=== PATIENT | female | born 1980 | race Caucasian/White ===

== ENCOUNTER → 2016-09-26 | Outpatient (CLI) | payer MEDICAID, OTHER ==
[~2016-09-26] MED LIST: POTASSIUM; PREN1TAB39; [UNRECOGNIZED DRUG - OTHER]; [UNRECOGNIZED DRUG - REMARK]
--- NOTE | 2016-09-28 19:04 | Diagnostic Imaging Report ---
Bilateral screening mammogram. The current study was also evaluated with a Computer Aided Detection (CAD) system. INDICATION: Screening. No current complaints stated on the questionnaire. COMPARISON: None. This is a baseline exam. FINDINGS: The breasts are composed of heterogeneously dense parenchyma which may decrease mammographic sensitivity. There is no mass, architectural distortion or suspicious cluster of calcification. Minimally prominent symmetric axillary lymph nodes are seen. IMPRESSION: Heterogeneously dense parenchyma which may decrease mammographic sensitivity. No focal suspicious mass or calcification identified. ACR BI-RADS Category 2: Benign findings. Result letter will be mailed to the patient. Note: At least 10% of breast cancer is not imaged by mammography. Dictated by: Dictated on workstation # [id number]
== END ==
LOC: RAD 09:31
PROVIDERS: ATTEND Nurse Practitioner Family
DX: Z12.31 Encounter for screening mammogram for malignant neoplasm of breast (principal); Z80.3 Family history of malignant neoplasm of breast
CPT/HCPCS: 77067

== ENCOUNTER → 2016-10-02 | Outpatient (CLI) | payer MEDICAID, OTHER ==
--- NOTE | 2016-10-02 15:49 | Diagnostic Imaging Report ---
INDICATION: Dysfunctional uterine bleeding. COMPARISON: None. DISCUSSION: Transabdominal and transvaginal sonographic evaluation of the pelvis was performed. The uterus is normal in echotexture and size measuring 9.3 x 6.1 x 4.7 cm. Normal endometrial thickness measuring 0.5 cm. The ovaries appear normal in echotexture and size bilaterally with normal color Doppler blood flow. The right ovary measures 3.8 x 3.1 x 3.4 cm. The left ovary measures 2.8 x 1.9 x 2.6 cm. Normal follicular activity is present within the ovaries. No abnormal adnexal mass or fluid. IMPRESSION: 1. Unremarkable pelvic ultrasound. Dictated by: Dictated on workstation # [id number]
== END ==
LOC: RAD 14:19
PROVIDERS: ATTEND Nurse Practitioner Family
DX: N92.0 Excessive and frequent menstruation with regular cycle (principal)
CPT/HCPCS: 76830; 76856

== ENCOUNTER 2017-01-30 07:11 | Emergency (ER) | payer MEDICAID, OTHER ==
[~2017-01-30] VITALS: Ht 154.9 cm; Wt 82.6 kg
[2017-01-30] MEDS ORDERED: PRD10T PO (08:03)
[2017-01-30] MEDS ORDERED: CLIN300C11 PO (08:03)
--- NOTE | 2017-01-30 08:03 | ED Integumentary General ---
General Chief Complaint: Skin/Wound Problems Stated Complaint: SPIDER BITE Nursing Triage Note: PT STATES HAS POSSIBLE SPIDER BITE TO L OUTER THIGH, DID NOT SEE SPIDER OR FEEL SPIDER BITE, AREA REDDEND, STATES HAS BURNING SENSATION Source: patient History of Present Illness Time seen by provider: 07:50 Initial Comments C/O SORE, RED SPOT TO LEFT LATERAL THIGH FOR 2 DAYS DID NOT SEE OR FEEL ANYTHING BITE HER NO DRAINAGE OR STREAKS NO FEVER HAS HISTORY OF MRSA PCP: BEATRICE, ROBB CELESTE Allergies and Home Medications Allergies Coded Allergies: sulfamethoxazole (Verified Allergy, Mild, 01/30/17) trimethoprim (Verified Allergy, Mild, 01/30/17) Uncoded Allergies: PENICILLIN (Adverse Reaction, Unknown, 01/30/17) Home Medications Clindamycin HCl 300 Mg Capsule, 300 MG PO QID, #40 Prescribed by: KAEL MUÑOZ on 01/30/17 0803 Prednisone 10 Mg Tab, 40 MG PO DAILY, #12 Prescribed by: KAEL MUÑOZ on 01/30/17 0803 Constitutional: no symptoms reported : No LMP: Jan 29, 2017 (S/P BTL) Musculoskeletal: see HPI Skin: see HPI Psychiatric/Neurological: No Symptoms Reported Past Sesotnp-Hfxipo-Mdldlg Hx Patient Social History Recent Foreign Travel: No Contact w/Someone Who Travel: No Recent Infectious Disease Expo: No Immunizations Up To Date Tetanus Booster (TDap): Less than 5yrs Surgeries HX Surgeries: Yes Surgeries: Tonsillectomy, Tubal Ligation Respiratory Hx Respiratory Disorders: No Cardiovascular Hx Cardiac Disorders: No Neurological Hx Neurological Disorders: No Reproductive System : No Hx Reproductive Disorders: No 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 Genitourinary Hx Genitourinary Disorders: No Gastrointestinal Hx Gastrointestinal Disorders: No Musculoskeletal Hx Musculoskeletal Disorders: No Endocrine Hx Endocrine Disorders: No HEENT HX ENT Disorders: Yes Cancer Hx Cancer: No Psychosocial Hx Psychiatric Problems: No Integumentary HX Skin/Integumentary Disorder: Yes (MRSA) Blood Transfusions Hx Blood Disorders: No Physical Exam Vital Signs Vital Sign - Last 12Hours 01/30/17 07:30 Temp 98.2 Pulse 58 Resp 18 B/P (MAP) 141/86 Capillary Refill : Less Than 3 Seconds General Appearance: WD/WN, no apparent distress Extremities: other (LEFT LATERAL THIGH WITH 1 1/2 CM AREA OF ERYTHEMA AND INDURATION WITH CENTRAL TINY PUSTULE. SURROUNDING INDURATION WITHOUT ERYTHEMA OF 5 CM DIAMETER. NO AREAS OF FLUCTUANCE. NO DRAINAGE. NO STREAKS) Skin: normal color, warm/dry, other ( ABOVE) Progress/Results/Core Measures Results/Orders Vital Signs/I&O Vital Sign - Last 12Hours 01/30/17 07:30 Temp 98.2 Pulse 58 Resp 18 B/P (MAP) 141/86 Blood Pressure Mean: 104 Departure Impression Impression: Primary Impression: CELLULITIS LEFT LATERAL THIGH Additional Impression: Hx MRSA infection Disposition: HOME, SELF-CARE Condition: Stable Departure-Patient Inst. Referrals: DECLAN YOUNG DO (PCP) Primary Care Physician ALLISON CELESTE (Family) Primary Care Physician Patient Instructions: Cellulitis (Skin Infection), Adult (DC), Methicillin- Resistant Staphylococcus aureus (MRSA) Add. Discharge Instructions: ALTERNATE ICE AND HEAT TO AREA AT 20 MINUTE INTERVALS DO NOT POKE, PICK AT, OR SQUEEZE THE AREA FOLLOW UP WITH [facility] IN 2-3 DAYS IF NO BETTER All discharge instructions reviewed with patient and/or family. Voiced understanding. Scripts Prednisone (Prednisone) 10 Mg Tab 40 MG PO DAILY, #12 TAB Prov: KAEL MUÑOZ DO 01/30/17 Clindamycin HCl (Clindamycin HCl) 300 Mg Capsule 300 MG PO QID for FOR INFECTION, #40 CAP Prov: KAEL MUÑOZ DO 01/30/17 KAEL MUÑOZ DO Jan 30, 2017 08:03
[2017-01-30 08:06] VITALS: BP 141/86
--- OUTSIDE RECORDS SUMMARY | 2017-02-06 21:35 | XMS REPORT ---
Author Author ALLISON CELESTE [facility] eClinicalWorks Address Unknown Phone Unavailable Care Team Providers Care Kiln Fireman Name Role Phone ALLISON CELESTE CP Unavailable Allergies, Adverse Reactions, Alerts Substance Reaction Event Type Clonazepam made hyper and anxious Drug Allergy Bactrim hives Drug Allergy Problems Problem Type Condition Code Onset Dates Condition Status Problem Periapical abscess without sinus 522.5 Active Problem Acute bronchitis 466.0 Active Problem Unspecified hypertrophic and atrophic condition of skin 701.9 Active Problem Migraine, unspecified without mention of intractable migraine without mention of status migrainosus 346.90 Active Problem Acute upper respiratory infections of unspecified site 465.9 Active Problem Cellulitis and abscess of leg, except foot 682.6 Active Problem Pneumonia, organism unspecified 486 Active Problem Abnormal weight gain 783.1 Active Problem Major depressive disorder, recurrent episode, moderate 296.32 Active Problem Other, multiple, and unspecified sites, insect bite, nonvenomous, without mention of infection 919.4 Active Assessment Acute laryngitis J04.0 Active Problem Depressive disorder, not elsewhere classified 311 Active Problem Major depressive disorder, recurrent episode, mild 296.31 Active Problem Contact dermatitis and other eczema, due to unspecified cause 692.9 Active Medications Medication Code System Code Instructions Start Date End Date Status Dosage Clobetasol Propionate [facility] [address]-02 0.05 % Externally Twice a day December 31, 2014 1 application to affected area Ibuprofen [facility] [address]-02 800 MG Orally Three times a day November 23, 2014 1 tablet Imitrex [facility] [address]-60 100 MG Orally Once a day 1 tablet 1 time per day and repeat once more after 2 hours if headache recurs PRN Benzonatate [facility] [address]-55 100 MG Orally Three times a day Jul 27, 2015 1 capsule as needed Procedures Procedure Coding System Code Date STREP A ASSAY W/OPTIC CPT-4 62787 Jul 27, 2015 Office Visit, Est Pt., Level 3 CPT-4 72192 Jul 27, 2015 Vital Signs Date/Time: Jul 27, 2015 Temperature 97.9 F Weight 177.4 lbs Height 61.5 in BMI 32.97 Index Blood Pressure Diastolic 80 mmHg Blood Pressure Systolic 126 mmHg Cardiac Monitoring Heart Rate 77 bpm Results Name Result Date Reference Range Unit Abnormality Flag STREP A (IN HOUSE) ----STREP A NEG [id number] ----Control + [id number] ----Lot # [id number] ----Exp date [id number] Summary Purpose eClinicalWorks Submission
--- OUTSIDE RECORDS SUMMARY | 2017-02-06 21:36 | XMS REPORT ---
Author Author ALLISON CELESTE [facility] Address [address] [place] [address] Care Team Providers Care Escort Service Attendant Name Role Phone CELESTEALLISON Unavailable PROBLEMS Type Condition ICD9-CM Code [id number] Code Onset Dates Condition Status SNOMED Code Problem Unspecified hypertrophic and atrophic condition of skin 701.9 Active 318982754 Problem Abnormal weight gain 783.1 Active 611313424 Problem Acute bronchitis 466.0 Active 75191810 Problem Cellulitis and abscess of leg, except foot 682.6 Active 276093492 Problem Migraine, unspecified without mention of intractable migraine without mention of status migrainosus 346.90 Active 52526816 Problem Other, multiple, and unspecified sites, insect bite, nonvenomous, without mention of infection 919.4 Active 105068411 Problem Pneumonia, organism unspecified 486 Active 617223662 Problem Acute upper respiratory infections of unspecified site 465.9 Active 85893417 Problem Major depressive disorder, recurrent episode, moderate 296.32 Active 01054525 Problem Depressive disorder, not elsewhere classified 311 Active 30989225 Problem Major depressive disorder, recurrent episode, mild 296.31 Active 84863780 Problem Contact dermatitis and other eczema, due to unspecified cause 692.9 Active 07655323 Assessment Abscess L02.91 Feb, Active 681157997 Problem Periapical abscess without sinus 522.5 Active 527286104 ALLERGIES Substance Reaction Event Type Date Status Clonazepam made hyper and anxious Drug Allergy Feb, Active Bactrim hives Drug Allergy Feb, Active SOCIAL HISTORY No smoking Hx information available PLAN OF CARE VITAL SIGNS Height 61.5 in 2016-03-06 Weight 182 lbs 2016-03-06 Heart Rate 77 bpm 2016-03-06 Respiratory Rate 16 2016-03-06 BMI 33.83 kg/m2 2016-03-06 Blood pressure systolic 120 mmHg 2016-03-06 Blood pressure diastolic 76 mmHg 2016-03-06 MEDICATIONS Medication Instructions Dosage Frequency Start Date End Date Duration Status Imitrex 100 MG Orally Once a day 1 tablet 1 time per day and repeat once more after 2 hours if headache recurs PRN 24h Active Clindamycin HCl 300 MG Orally every 8 hrs 1 capsule 8h Feb,Feb 07 days Active RESULTS Name Result Date Reference Range CULTURE, AEROBIC 2016-03-06 Aerobic Bacterial Culture Final report Result 1 Staphylococcus aureus Antimicrobial Susceptibility PROCEDURES Procedure Date Ordered Related Diagnosis Body Site Office Visit, Est Pt., Level 3 Mar 06, 2016 CULTURE, BACTERIA, OTHER Mar 06, 2016 IMMUNIZATIONS No Known Immunizations
--- OUTSIDE RECORDS SUMMARY | 2017-02-06 21:36 | XMS REPORT ---
Author Author ALLISON CELESTE Organization [employer] Address Unknown Phone Unavailable Care Team Providers Care Gasoline Engine Assembler Name Role Phone ALLISON CELESTE CP Unavailable Allergies No Known Allergies Problems Problem Type Condition Code Onset Dates [...] without mention of infection 919.4 Active Assessment Encounter for immunization Z23 Active Problem Depressive disorder, not elsewhere classified 311 Active Problem Major depressive disorder, recurrent episode, mild 296.31 Active Problem Contact dermatitis and other eczema, due to unspecified cause 692.9 Active Medications No Known Medications Procedures Procedure Coding System Code Date SINGLE IMMUNIZATION ADMIN CPT-4 95877 February 06, 2016 HEP B (PED/ADOL, 3 DOSE) CPT-4 86919 February 06, 2016 Results No Known Results Immunizations Vaccine Administration Date HEP B (PED/ADOL, 3 DOSE) February 06, 2016 Summary Purpose eClinicalWorks Submission
--- OUTSIDE RECORDS SUMMARY | 2017-02-06 21:36 | XMS REPORT ---
Author Author ALLISON CELESTE Organization [employer] Address Unknown Phone Unavailable Care Team Providers Care Furniture Dipper Name Role Phone ALLISON CELESTE CP Unavailable Allergies, Adverse Reactions, Alerts Substance Reaction Event Type Clonazepam made hyper and anxious Drug Allergy Bactrim hives Drug Allergy Problems Problem Type Condition Code Onset Dates Condition Status Problem Unspecified hypertrophic and atrophic condition of skin 701.9 Active Problem Abnormal weight gain 783.1 Active Problem Acute bronchitis 466.0 Active Problem Cellulitis and abscess of leg, except foot 682.6 Active Problem Migraine, unspecified without mention of intractable migraine without mention of status migrainosus 346.90 Active Problem Abscess L02.91 Active Problem Other, multiple, and unspecified sites, insect bite, nonvenomous, without mention of infection 919.4 Active Problem Pneumonia, organism unspecified 486 Active Problem Acute upper respiratory infections of unspecified site 465.9 Active Problem Major depressive disorder, recurrent episode, moderate 296.32 Active Problem Depressive disorder, not elsewhere classified 311 Active Problem Major depressive disorder, recurrent episode, mild 296.31 Active Problem Contact dermatitis and other eczema, due to unspecified cause 692.9 Active Assessment Abscess L02.91 Active Problem Periapical abscess without sinus 522.5 Active Medications Medication Code System Code Instructions Start Date End Date Status Dosage Imitrex [facility] [address]-25 100 MG Orally Once a day 1 tablet 1 time per day and repeat once more after 2 hours if headache recurs PRN Clindamycin HCl [facility] [address]-54 300 MG Orally 2 times a day May 14, 2016 May 21, 2016 1 capsule Procedures Procedure Coding System Code Date Office Visit, Est Pt., Level 3 CPT-4 85827 May 14, 2016 Vital Signs Date/Time: May 14, 2016 Cardiac Monitoring Heart Rate 95 bpm Weight 183.2 lbs Height 61.5 in BMI 34.05 Index Blood Pressure Diastolic 70 mmHg Blood Pressure Systolic 118 mmHg Results No Known Results Summary Purpose eClinicalWorks Submission
--- OUTSIDE RECORDS SUMMARY | 2017-02-06 21:36 | XMS REPORT ---
Author Author ALLISON CELESTE Organization [employer] Address Unknown Phone Unavailable Care Team Providers Care Rn Travel Name Role Phone ALLISON CELESTE CP Unavailable Allergies No Known Allergies Problems Problem Type Condition ICD-9 Code Onset Dates Condition Status Problem Periapical [...] without mention of infection 919.4 Active Problem Depressive disorder, not elsewhere classified 311 Active Problem Major depressive disorder, recurrent episode, mild 296.31 Active Problem Contact dermatitis and other eczema, due to unspecified cause 692.9 Active Medications Medication Code System Code Instructions Start Date End Date Status Dosage Imitrex [facility] [address]-21 100 MG Orally Once a day 1 tablet 1 time per day and repeat once more after 2 hours if headache recurs PRN Results No Known Results Summary Purpose eClinicalWorks Submission
--- OUTSIDE RECORDS SUMMARY | 2017-02-06 21:36 | XMS REPORT ---
Author Author ALLISON CELESTE Organization [employer] Address Unknown Phone Unavailable Care Team Providers Care Incinerator Plant General Supervisor Name Role Phone ALLISON CELESTE CP Unavailable [...] without mention of infection 919.4 Active Assessment Abscess L02.91 Active Problem Depressive disorder, not elsewhere classified 311 Active Problem Major depressive disorder, recurrent episode, mild 296.31 Active Problem Contact dermatitis and other eczema, due to unspecified cause 692.9 Active Medications No Known Medications Procedures Procedure Coding System Code Date THER/PROPH/DIAG INJ, SC/IM CPT-4 31954 Mar 08, 2016 ROCEPHIN 1 GM (IM) CPT-4 J0696 Mar 08, 2016 Results No Known Results Summary Purpose eClinicalWorks Submission
--- OUTSIDE RECORDS SUMMARY | 2017-02-06 21:36 | XMS REPORT ---
Author Author DINORAH MERAZ [facility] Address [address] [place] [address] Care Team Providers Care Military Analyst Name Role Phone CELENA PIMENTELDINORAH VIGIL Unavailable PROBLEMS Type Condition ICD9-CM Code [id number] Code Onset Dates Condition Status SNOMED Code Problem Acute bronchitis 466.0 Active 51384445 Problem Pneumonia, organism unspecified 486 Active 587396664 Problem Abnormal weight gain 783.1 Active 246498602 Problem Abscess L02.91 Active 751507416 Problem Cellulitis and abscess of leg, except foot 682.6 Active 814435489 Problem Major depressive disorder, recurrent episode, moderate 296.32 Active 67117857 Problem Other, multiple, and unspecified sites, insect bite, nonvenomous, without mention of infection 919.4 Active 369343034 Problem Migraine, unspecified without mention of intractable migraine without mention of status migrainosus 346.90 Active 47164190 Problem Acute upper respiratory infections of unspecified site 465.9 Active 06342289 Problem Major depressive disorder, recurrent episode, mild 296.31 Active 64883385 Problem Contact dermatitis and other eczema, due to unspecified cause 692.9 Active 90717612 Assessment Laryngitis J04.0 Jun, Active 96353835 Problem Periapical abscess without sinus 522.5 Active 744722059 Problem Depressive disorder, not elsewhere classified 311 Active 69119035 Problem Unspecified hypertrophic and atrophic condition of skin 701.9 Active 021260529 ALLERGIES Substance Reaction Event Type Date Status Clonazepam made hyper and anxious Drug Allergy Jun, Active Bactrim hives Drug Allergy Jun, Active SOCIAL HISTORY No smoking Hx information available PLAN OF CARE VITAL SIGNS Height 61.5 in 2016-06-25 Weight 182.8 lbs 2016-06-25 Heart Rate 75 bpm 2016-06-25 Respiratory Rate 18 2016-06-25 BMI 33.98 kg/m2 2016-06-25 Blood pressure systolic 122 mmHg 2016-06-25 Blood pressure diastolic 68 mmHg 2016-06-25 MEDICATIONS Medication Instructions Dosage Frequency Start Date End Date Duration Status Imitrex 100 MG Orally Once a day 1 tablet 1 time per day and repeat once more after 2 hours if headache recurs PRN 24h Active PredniSONE 20 mg Orally twice a day 1 tablet 12h Jun, Jun, 05 days Active RESULTS No Results PROCEDURES Procedure Date Ordered Related Diagnosis Body Site Office Visit, Est Pt., Level 3 Jun 25, 2016 IMMUNIZATIONS No Known Immunizations
--- OUTSIDE RECORDS SUMMARY | 2017-02-06 21:36 | XMS REPORT ---
Author Author ALLISON CELESTE [facility] Address [address] [place] [address] Care Team Providers Care Culturist Name Role Phone ALLISON CELESTE Unavailable PROBLEMS Type Condition ICD9-CM Code [id number] Code Onset Dates Condition Status SNOMED Code Problem Unspecified hypertrophic and atrophic condition of skin 701.9 Active 649292800 Problem Abnormal weight gain 783.1 Active 898792676 Problem Acute bronchitis 466.0 Active 95204653 Problem Depressive disorder, not elsewhere classified 311 Active 82798600 Problem Major depressive disorder, recurrent episode, mild 296.31 Active 35709051 Problem Contact dermatitis and other eczema, due to unspecified cause 692.9 Active 86374916 Problem Periapical abscess without sinus 522.5 Active 866114807 Problem Cellulitis and abscess of leg, except foot 682.6 Active 478594462 Problem Migraine, unspecified without mention of intractable migraine without mention of status migrainosus 346.90 Active 65213119 Problem Other, multiple, and unspecified sites, insect bite, nonvenomous, without mention of infection 919.4 Active 789232001 Problem Pneumonia, organism unspecified 486 Active 878223380 Problem Acute upper respiratory infections of unspecified site 465.9 Active 20868688 Problem Major depressive disorder, recurrent episode, moderate 296.32 Active 04257152 ALLERGIES No Known Allergies SOCIAL HISTORY No smoking Hx information available PLAN OF CARE VITAL SIGNS MEDICATIONS Medication Instructions Dosage Frequency Start Date End Date Duration Status Clindamycin HCl 300 MG Orally every 8 hrs 1 capsule 8h Feb,Mar 07 days Active Amoxicillin 500 MG Orally 2 times a day 1 capsule 12h Feb, 14 Mar 07 days Active RESULTS No Results PROCEDURES No Known procedures IMMUNIZATIONS No Known Immunizations
--- OUTSIDE RECORDS SUMMARY | 2017-02-06 21:36 | XMS REPORT ---
Author Author ALLISON CELESTE Organization [employer] Address Unknown Phone Unavailable Care Team Providers Care Senior Hardware Engineer Name Role Phone ALLISON CELESTE CP Unavailable [...] Instructions Start Date End Date Status Dosage Amoxicillin [facility] [address]-55 500 MG Orally 2 times a day Mar 09, 2016 Mar 23, 2016 1 capsule Results No Known Results Summary Purpose eClinicalWorks Submission
--- OUTSIDE RECORDS SUMMARY | 2017-02-06 21:37 | XMS REPORT | Continuity of Care Document ---
Author Author [facility] Address Unknown Phone Unavailable Allergies Active Description Code Type Severity Reaction Onset Reported/Identified Relationship to Patient Clinical Status Yes Penicillins Drug Allergy N/A N/A 02/20/2010 Yes Penicillins Drug Allergy 02/20/2010 Yes Bactrim Drug Allergy N/A N/A 06/13/2012 Yes Bactrim Drug Allergy 06/13/2012 Yes clonazepam Drug Allergy N/A N/A 08/06/2013 Medications Problems Date Dx Coded Attending Type Code Diagnosis Diagnosed By 10/12/2008 ALLISON CELESTE APRN 787.03 Vomiting Alone 10/12/2008 ALLISON CELESTE APRN 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 10/12/2008 ALLISON CELESTE APRN V23.9 Supervision Of Unspecified High-risk 10/12/2008 ALLISON CELESTE APRN 787.03 Vomiting Alone 10/12/2008 ALLISON CELESTE APRN 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 10/12/2008 ALLISON CELESTE APRN V23.9 Supervision Of Unspecified High-risk 10/12/2008 787.03 Vomiting Alone 10/12/2008 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 10/12/2008 V23.9 Supervision Of Unspecified High-risk 10/12/2008 787.03 Vomiting Alone 10/12/2008 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 10/12/2008 V23.9 Supervision Of Unspecified High-risk 10/12/2008 787.03 Vomiting Alone 10/12/2008 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 10/12/2008 V23.9 Supervision Of Unspecified High-risk 10/12/2008 787.03 Vomiting Alone 10/12/2008 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 10/12/2008 V23.9 Supervision Of Unspecified High-risk 10/12/2008 CELESTE RECREATION ASSISTANTALLISON Arndt R 787.03 Vomiting Alone 10/12/2008 ROULA THAKURALLISON Arndt 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 10/12/2008 ROULA THAKURALLISON Arndt V23.9 Supervision Of Unspecified High-risk 10/12/2008 ROULA THAKURALLISON Arndt R 787.03 Vomiting Alone 10/12/2008 ROULA THAKURALLISON Arndt 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 10/12/2008 ROULA THAKURALLISON Arndt V23.9 Supervision Of Unspecified High-risk 10/12/2008 787.03 Vomiting Alone 10/12/2008 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 10/12/2008 V23.9 Supervision Of Unspecified High-risk 10/12/2008 787.03 Vomiting Alone 10/12/2008 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 10/12/2008 V23.9 Supervision Of Unspecified High-risk 10/12/2008 YOUNG DO DECLAN K 787.03 Vomiting Alone 10/12/2008 YOUNG DO DECLAN K 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 10/12/2008 YOUNG DO DECLAN K V23.9 Supervision Of Unspecified High-risk 10/12/2008 YOUNG DO, DECLAN K 787.03 Vomiting Alone 10/12/2008 YOUNG DO, DECLAN K 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 10/12/2008 YOUNG DO, DECLAN K V23.9 Supervision Of Unspecified High-risk 10/12/2008 CELESTE ALLISON WEEKS 787.03 Vomiting Alone 10/12/2008 CELESTE ALLISON WEEKS 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 10/12/2008 CELESTE ALLISON WEEKS V23.9 Supervision Of Unspecified High-risk 10/12/2008 YOUNG DO, DECLAN K 787.03 Vomiting Alone 10/12/2008 YOUNG DO, DECLAN K 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 10/12/2008 YOUNG DO, DECLAN K V23.9 Supervision Of Unspecified High-risk 10/12/2008 YOUNG DO DECLAN K 787.03 Vomiting Alone 10/12/2008 DECLAN YOUNG DO 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 10/12/2008 DECLAN YOUNG DO V23.9 Supervision Of Unspecified High-risk 10/12/2008 ALLISON CELESTE APRN R 787.03 Vomiting Alone 10/12/2008 CELESTEALLISON LAKE APRN 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 10/12/2008 ALLISON CELESTE APRN V23.9 Supervision Of Unspecified High-risk 10/12/2008 JAZLYN LCMF, LOUISA W 787.03 Vomiting Alone 10/12/2008 JAZLYN LCMF, LOUISA W 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 10/12/2008 JAZLYN LCMF, LOUISA W V23.9 Supervision Of Unspecified High-risk 10/12/2008 JAZLYN LCMF, LOUISA W 787.03 Vomiting Alone 10/12/2008 JAZLYN LCMF, LOUISA W 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 10/12/2008 JAZLYN LCMF, LOUISA W V23.9 Supervision Of Unspecified High-risk 11/05/2008 ALLISON CELESTE APRN 651.00 High Risk Multiple Gestation 11/05/2008 ALLISON CELESTE APRN 651.00 High Risk Multiple Gestation 11/05/2008 651.00 High Risk Multiple Gestation 11/05/2008 651.00 High Risk Multiple Gestation 11/05/2008 651.00 High Risk Multiple Gestation 11/05/2008 651.00 High Risk Multiple Gestation 11/05/2008 ALLISON CELESTE APRN 651.00 High Risk Multiple Gestation 11/05/2008 ALLISON CELESTE APRN 651.00 High Risk Multiple Gestation 11/05/2008 651.00 High Risk Multiple Gestation 11/05/2008 651.00 High Risk Multiple Gestation 11/05/2008 DECLAN YOUNG DO 651.00 High Risk Multiple Gestation 11/05/2008 DECLAN YOUNG DO 651.00 High Risk Multiple Gestation 11/05/2008 ALLISON CELESTE APRN 651.00 High Risk Multiple Gestation 11/05/2008 DECLAN YOUNG DO 651.00 High Risk Multiple Gestation 11/05/2008 ALEX YOUNG DOA K 651.00 High Risk Multiple Gestation 11/05/2008 ALLISON CELESTE APRN R 651.00 High Risk Multiple Gestation 11/05/2008 JAZLYN COLLIERYasmine, LOUISA Rolle 651.00 High Risk Multiple Gestation 11/05/2008 JAZLYN GUSMAN, LOUISA Rolle 651.00 High Risk Multiple Gestation 11/14/2008 ALLISON CELESTE APRN 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 11/14/2008 ALLISON CELESTE APRN 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 11/14/2008 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 11/14/2008 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 11/14/2008 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 11/14/2008 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 11/14/2008 ALLISON CELESTE APRN 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 11/14/2008 JAZLYN GUSMAN, LOUISA Rolle 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 11/14/2008 JAZLYN COLLIERYasmine, LOUISA Rolle 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 12/03/2008 ALLISON CELESTE APRN 616.10 Vaginitis Vulvovaginitis Unspecified 12/03/2008 ALLISON CELESTE APRN 616.10 Vaginitis Vulvovaginitis Unspecified 12/03/2008 616.10 Vaginitis Vulvovaginitis Unspecified 12/03/2008 616.10 Vaginitis Vulvovaginitis Unspecified 12/03/2008 616.10 Vaginitis Vulvovaginitis Unspecified 12/03/2008 616.10 Vaginitis Vulvovaginitis Unspecified 12/03/2008 ALLISON CELESTE APRN 616.10 Vaginitis Vulvovaginitis Unspecified 12/03/2008 ALLISON CELESTE APRN 616.10 Vaginitis Vulvovaginitis Unspecified 12/03/2008 616.10 Vaginitis Vulvovaginitis Unspecified 12/03/2008 616.10 Vaginitis Vulvovaginitis Unspecified 12/03/2008 YOUNG DO, DECLAN K 616.10 Vaginitis Vulvovaginitis Unspecified 12/03/2008 YOUNG DO, DECLAN K 616.10 Vaginitis Vulvovaginitis Unspecified 12/03/2008 ALLISON CELESTE APRN 616.10 Vaginitis Vulvovaginitis Unspecified 12/03/2008 YOUNG DO, DECLAN K 616.10 Vaginitis Vulvovaginitis Unspecified 12/03/2008 YOUNG DO, DECLAN K 616.10 Vaginitis Vulvovaginitis Unspecified 12/03/2008 ALLISON CELESTE APRN 616.10 Vaginitis Vulvovaginitis Unspecified 12/03/2008 LOUISA BLAND 616.10 Vaginitis Vulvovaginitis Unspecified 12/03/2008 LOUISA BLAND 616.10 Vaginitis Vulvovaginitis Unspecified 12/24/2008 ALLISON CELESTE APRN 599.0 Urinary Tract Infection Site Not Specified 12/24/2008 ALLISON CELESTE APRN 599.0 Urinary Tract Infection Site Not Specified 12/24/2008 599.0 Urinary Tract Infection Site Not Specified 12/24/2008 599.0 Urinary Tract Infection Site Not Specified 12/24/2008 599.0 Urinary Tract Infection Site Not Specified 12/24/2008 599.0 Urinary Tract Infection Site Not Specified 12/24/2008 ALLISON CELESTE APRN 599.0 Urinary Tract Infection Site Not Specified 12/24/2008 ALLISON CELESTE APRN 599.0 Urinary Tract Infection Site Not Specified 12/24/2008 599.0 Urinary Tract Infection Site Not Specified 12/24/2008 599.0 Urinary Tract Infection Site Not Specified 12/24/2008 YOUNG DODECLAN K 599.0 Urinary Tract Infection Site Not Specified 12/24/2008 YOUNG DO, DECLAN K 599.0 Urinary Tract Infection Site Not Specified 12/24/2008 ALLISON CELESTE APRN 599.0 Urinary Tract Infection Site Not Specified 12/24/2008 YOUNG DO, DECLAN K 599.0 Urinary Tract Infection Site Not Specified 12/24/2008 YOUNG DO, DECLAN K 599.0 Urinary Tract Infection Site Not Specified 12/24/2008 ALLISON CELESTE APRN 599.0 Urinary Tract Infection Site Not Specified 12/24/2008 JAZLYN LCMF, LOUISA W 599.0 Urinary Tract Infection Site Not Specified 12/24/2008 JAZLYN LCMF, LOUISA W 599.0 Urinary Tract Infection Site Not Specified 12/31/2008 ALLISON CELESTE APRN V23.83 High-risk With Young Primigravida 12/31/2008 ALLISON CELESTE APRN V23.83 High-risk With Young Primigravida 12/31/2008 V23.83 High-risk With Young Primigravida 12/31/2008 V23.83 High-risk With Young Primigravida 12/31/2008 V23.83 High-risk With Young Primigravida 12/31/2008 V23.83 High-risk With Young Primigravida 12/31/2008 ALLISON CELESTE APRN V23.83 High-risk With Young Primigravida 12/31/2008 ALLISON CELESTE APRN V23.83 High-risk With Young Primigravida 12/31/2008 V23.83 High-risk With Young Primigravida 12/31/2008 V23.83 High-risk With Young Primigravida 12/31/2008 DECLAN YOUNG DO V23.83 High-risk With Young Primigravida 12/31/2008 DECLAN YOUNG DO K V23.83 High-risk With Young Primigravida 12/31/2008 ALLISON CELESTE APRN V23.83 High-risk With Young Primigravida 12/31/2008 DECLAN YOUNG DO K V23.83 High-risk With Young Primigravida 12/31/2008 DECLAN YOUNG DO K V23.83 High-risk With Young Primigravida 12/31/2008 ALLISON CELESTE APRN V23.83 High-risk With Young Primigravida 12/31/2008 JAZLYN COLLIERLOUISA Underwood V23.83 High-risk With Young Primigravida 12/31/2008 LOUISA BLAND V23.83 High-risk With Young Primigravida 06/07/2009 ALLISON CELESTE APRN 305.1 NICOTINE DEPENDENCE 06/07/2009 ALLISON CELESTE APRN 305.1 NICOTINE DEPENDENCE 06/07/2009 305.1 NICOTINE DEPENDENCE 06/07/2009 305.1 NICOTINE DEPENDENCE 06/07/2009 305.1 NICOTINE DEPENDENCE 06/07/2009 305.1 NICOTINE DEPENDENCE 06/07/2009 ALLISON CELESTE APRN 305.1 NICOTINE DEPENDENCE 06/07/2009 ALLISON CELESTE APRN 305.1 NICOTINE DEPENDENCE 06/07/2009 305.1 NICOTINE DEPENDENCE 06/07/2009 305.1 NICOTINE DEPENDENCE 06/07/2009 DECLAN YOUNG DO K 305.1 NICOTINE DEPENDENCE 06/07/2009 DECLAN YOUNG DO K 305.1 NICOTINE DEPENDENCE 06/07/2009 ALLISON CELESTE APRN 305.1 NICOTINE DEPENDENCE 06/07/2009 DECLAN YOUNG DO K 305.1 NICOTINE DEPENDENCE 06/07/2009 DECLAN YOUNG DO K 305.1 NICOTINE DEPENDENCE 06/07/2009 ALLISON CELESTE APRN 305.1 NICOTINE DEPENDENCE 06/07/2009 LOUISA BLAND 305.1 NICOTINE DEPENDENCE 06/07/2009 LOUISA BLAND 305.1 NICOTINE DEPENDENCE 02/20/2010 ALLISON CELESTE APRN 380.12 ACUTE SWIMMERS' EAR 02/20/2010 ALLISON CELESTE APRN 380.12 ACUTE SWIMMERS' EAR 02/20/2010 380.12 ACUTE SWIMMERS' EAR 02/20/2010 380.12 ACUTE SWIMMERS' EAR 02/20/2010 380.12 ACUTE SWIMMERS' EAR 02/20/2010 380.12 ACUTE SWIMMERS' EAR 02/20/2010 ALLISON CELESTE APRN 380.12 ACUTE SWIMMERS' EAR 02/20/2010 ALLISON CELESTE APRN 380.12 ACUTE SWIMMERS' EAR 02/20/2010 380.12 ACUTE SWIMMERS' EAR 02/20/2010 380.12 ACUTE SWIMMERS' EAR 02/20/2010 ALEX YOUNG DOA K 380.12 ACUTE SWIMMERS' EAR 02/20/2010 YOUNG , DECLAN K 380.12 ACUTE SWIMMERS' EAR 02/20/2010 ALLISON CELESTE APRN 380.12 ACUTE SWIMMERS' EAR 02/20/2010 YOUNG DECLAN VASQUEZ K 380.12 ACUTE SWIMMERS' EAR 02/20/2010 ALEX YOUNG DOA K 380.12 ACUTE SWIMMERS' EAR 02/20/2010 ALLISON CELESTE APRN 380.12 ACUTE SWIMMERS' EAR 02/20/2010 JAZLYN LCMF, LOUISA W 380.12 ACUTE SWIMMERS' EAR 02/20/2010 JAZLYN LCMF, LOUISA W 380.12 ACUTE SWIMMERS' EAR 03/11/2012 ALLISON CELESTE APRN 522.5 DENTOALVEOLAR ABSCESS 03/11/2012 ALLISON CELESTE APRN 522.5 DENTOALVEOLAR ABSCESS 03/11/2012 522.5 DENTOALVEOLAR ABSCESS 03/11/2012 522.5 DENTOALVEOLAR ABSCESS 03/11/2012 522.5 DENTOALVEOLAR ABSCESS 03/11/2012 522.5 DENTOALVEOLAR ABSCESS 03/11/2012 ALLISON CELESTE APRN 522.5 DENTOALVEOLAR ABSCESS 03/11/2012 ALLISON CELESTE APRN 522.5 DENTOALVEOLAR ABSCESS 03/11/2012 522.5 DENTOALVEOLAR ABSCESS 03/11/2012 522.5 DENTOALVEOLAR ABSCESS 03/11/2012 DECLAN YOUNG DO 522.5 DENTOALVEOLAR ABSCESS 03/11/2012 DECLAN YOUNG DO K 522.5 DENTOALVEOLAR ABSCESS 03/11/2012 ALLISON CELESTE APRN 522.5 DENTOALVEOLAR ABSCESS 03/11/2012 DECLAN YOUNG DO 522.5 DENTOALVEOLAR ABSCESS 03/11/2012 DECLAN YOUNG DO 522.5 DENTOALVEOLAR ABSCESS 03/11/2012 CELESTE ALLISON WEEKS 522.5 DENTOALVEOLAR ABSCESS 03/11/2012 LOUISA BLAND 522.5 DENTOALVEOLAR ABSCESS 03/11/2012 LOUISA BLAND 522.5 DENTOALVEOLAR ABSCESS 05/14/2012 CELESTE ALLISON WEEKS R 311 DEPRESSIVE DISORDER NOT ELSEWHERE CLASSIFIED 05/14/2012 CELESTE ALLISON WEEKS R 311 DEPRESSIVE DISORDER NOT ELSEWHERE CLASSIFIED 05/14/2012 311 DEPRESSIVE DISORDER NOT ELSEWHERE CLASSIFIED 05/14/2012 311 DEPRESSIVE DISORDER NOT ELSEWHERE CLASSIFIED 05/14/2012 311 DEPRESSIVE DISORDER NOT ELSEWHERE CLASSIFIED 05/14/2012 311 DEPRESSIVE DISORDER NOT ELSEWHERE CLASSIFIED 05/14/2012 CELESTE ALLISON WEEKS R 311 DEPRESSIVE DISORDER NOT ELSEWHERE CLASSIFIED 05/14/2012 CELESTE ALLISON WEEKS R 311 DEPRESSIVE DISORDER NOT ELSEWHERE CLASSIFIED 05/14/2012 311 DEPRESSIVE DISORDER NOT ELSEWHERE CLASSIFIED 05/14/2012 311 DEPRESSIVE DISORDER NOT ELSEWHERE CLASSIFIED 05/14/2012 HANNAH VASQUEZ DECLAN K 311 DEPRESSIVE DISORDER NOT ELSEWHERE CLASSIFIED 05/14/2012 HANNAH VASQUEZ DECLAN K 311 DEPRESSIVE DISORDER NOT ELSEWHERE CLASSIFIED 05/14/2012 CELESTE ALLISON WEEKS R 311 DEPRESSIVE DISORDER NOT ELSEWHERE CLASSIFIED 05/14/2012 YOUNG DO DECLAN K 311 DEPRESSIVE DISORDER NOT ELSEWHERE CLASSIFIED 05/14/2012 HANNAH VASQUEZ DECLAN K 311 DEPRESSIVE DISORDER NOT ELSEWHERE CLASSIFIED 05/14/2012 CELESTE ALLISON WEEKS R 311 DEPRESSIVE DISORDER NOT ELSEWHERE CLASSIFIED 05/14/2012 LOUISA BLAND 311 DEPRESSIVE DISORDER NOT ELSEWHERE CLASSIFIED 05/14/2012 LOUISA BLAND 311 DEPRESSIVE DISORDER NOT ELSEWHERE CLASSIFIED 08/04/2012 465.9 UPPER RESPIRATORY INFECTION 08/04/2012 465.9 UPPER RESPIRATORY INFECTION 08/04/2012 465.9 UPPER RESPIRATORY INFECTION 08/04/2012 CELESTEALLISON LAKE APRN R 465.9 UPPER RESPIRATORY INFECTION 08/04/2012 ALLISON CELESTE APRN R 465.9 UPPER RESPIRATORY INFECTION 08/04/2012 465.9 UPPER RESPIRATORY INFECTION 08/04/2012 465.9 UPPER RESPIRATORY INFECTION 08/04/2012 DECLAN YOUNG DO K 465.9 UPPER RESPIRATORY INFECTION 08/04/2012 DECLAN YOUNG DO K 465.9 UPPER RESPIRATORY INFECTION 08/04/2012 ALLISON CELESTE APRN 465.9 UPPER RESPIRATORY INFECTION 08/04/2012 DECLAN YOUNG DO 465.9 UPPER RESPIRATORY INFECTION 08/04/2012 DECLAN YOUNG DO K 465.9 UPPER RESPIRATORY INFECTION 08/04/2012 ALLISON CELESTE APRN 465.9 UPPER RESPIRATORY INFECTION 08/04/2012 JAZLYN LCMF, LOUISA W 465.9 UPPER RESPIRATORY INFECTION 08/04/2012 JAZLYN LCMF, LOUISA W 465.9 UPPER RESPIRATORY INFECTION 08/22/2012 682.6 CELLULITIS AND ABSCESS OF LEG EXCEPT FOOT 08/22/2012 682.6 CELLULITIS AND ABSCESS OF LEG EXCEPT FOOT 08/22/2012 ALLISON CELESTE APRN 682.6 CELLULITIS AND ABSCESS OF LEG EXCEPT FOOT 08/22/2012 ALLISON CELESTE APRN 682.6 CELLULITIS AND ABSCESS OF LEG EXCEPT FOOT 08/22/2012 682.6 CELLULITIS AND ABSCESS OF LEG EXCEPT FOOT 08/22/2012 682.6 CELLULITIS AND ABSCESS OF LEG EXCEPT FOOT 08/22/2012 DECLAN YOUNG DO 682.6 CELLULITIS AND ABSCESS OF LEG EXCEPT FOOT 08/22/2012 DECLAN YOUNG DO K 682.6 CELLULITIS AND ABSCESS OF LEG EXCEPT FOOT 08/22/2012 ALLISON CELESTE APRN 682.6 CELLULITIS AND ABSCESS OF LEG EXCEPT FOOT 08/22/2012 DECLAN YOUNG DO K 682.6 CELLULITIS AND ABSCESS OF LEG EXCEPT FOOT 08/22/2012 DECLAN YOUNG DO K 682.6 CELLULITIS AND ABSCESS OF LEG EXCEPT FOOT 08/22/2012 ALLISON CELESTE APRN 682.6 CELLULITIS AND ABSCESS OF LEG EXCEPT FOOT 08/22/2012 JAZLYN COLLIERF, LOUISA Rolle 682.6 CELLULITIS AND ABSCESS OF LEG EXCEPT FOOT 08/22/2012 JAZLYN BALF, LOUISA W 682.6 CELLULITIS AND ABSCESS OF LEG EXCEPT FOOT 10/27/2012 346.90 HEADACHE, MIGRAINE 10/27/2012 346.90 HEADACHE, MIGRAINE 10/27/2012 DECLAN YOUNG DO 346.90 HEADACHE, MIGRAINE 10/27/2012 DECLAN YOUNG DO K 346.90 HEADACHE, MIGRAINE 10/27/2012 ALLISON CELESTE APRN 346.90 HEADACHE, MIGRAINE 10/27/2012 YOUNG DO, DECLAN K 346.90 HEADACHE, MIGRAINE 10/27/2012 YOUNG DO, DECLAN K 346.90 HEADACHE, MIGRAINE 10/27/2012 ALLISON CELESTE APRN 346.90 HEADACHE, MIGRAINE 10/27/2012 JAZLYN BALF, LOUISA Rolle 346.90 HEADACHE, MIGRAINE 10/27/2012 JAZLYN BALF, LOUISA W 346.90 HEADACHE, MIGRAINE 11/11/2012 692.9 CONTACT DERMATITIS AND OTHER ECZEMA UNSPECIFIED CAUSE 11/11/2012 692.9 CONTACT DERMATITIS AND OTHER ECZEMA UNSPECIFIED CAUSE 11/11/2012 YOUNG DO, DECLAN K 692.9 CONTACT DERMATITIS AND OTHER ECZEMA UNSPECIFIED CAUSE 11/11/2012 YOUNG DO, DECLAN K 692.9 CONTACT DERMATITIS AND OTHER ECZEMA UNSPECIFIED CAUSE 11/11/2012 ALLISON CELESTE APRN 692.9 CONTACT DERMATITIS AND OTHER ECZEMA UNSPECIFIED CAUSE 11/11/2012 YOUNG DO DECLAN K 692.9 CONTACT DERMATITIS AND OTHER ECZEMA UNSPECIFIED CAUSE 11/11/2012 YOUNG DO, DECLAN K 692.9 CONTACT DERMATITIS AND OTHER ECZEMA UNSPECIFIED CAUSE 11/11/2012 ALLISON CELESTE APRN 692.9 CONTACT DERMATITIS AND OTHER ECZEMA UNSPECIFIED CAUSE 11/11/2012 JAZLYN GUSMAN, LOUISA Rolle 692.9 CONTACT DERMATITIS AND OTHER ECZEMA UNSPECIFIED CAUSE 11/11/2012 JAZLYN GUSMAN, LOUISA Rolle 692.9 CONTACT DERMATITIS AND OTHER ECZEMA UNSPECIFIED CAUSE 01/08/2013 701.9 UNSPECIFIED HYPERTROPHIC AND ATROPHIC CONDITIONS OF SKIN 01/08/2013 YOUNG DO, DECLAN K 701.9 UNSPECIFIED HYPERTROPHIC AND ATROPHIC CONDITIONS OF SKIN 01/08/2013 YOUNG DO, DECLAN K 701.9 UNSPECIFIED HYPERTROPHIC AND ATROPHIC CONDITIONS OF SKIN 01/08/2013 ALLISON CELESTE APRN 701.9 UNSPECIFIED HYPERTROPHIC AND ATROPHIC CONDITIONS OF SKIN 01/08/2013 YOUNG DO, DECLAN K 701.9 UNSPECIFIED HYPERTROPHIC AND ATROPHIC CONDITIONS OF SKIN 01/08/2013 YOUNG DO, DECLAN K 701.9 UNSPECIFIED HYPERTROPHIC AND ATROPHIC CONDITIONS OF SKIN 01/08/2013 ALLISON CELESTE APRN 701.9 UNSPECIFIED HYPERTROPHIC AND ATROPHIC CONDITIONS OF SKIN 01/08/2013 JAZLYN GUSMAN, LOUISA Rolle 701.9 UNSPECIFIED HYPERTROPHIC AND ATROPHIC CONDITIONS OF SKIN 01/08/2013 JAZLYN GUSMAN LOUISA Aquilino 701.9 UNSPECIFIED HYPERTROPHIC AND ATROPHIC CONDITIONS OF SKIN 10/05/2013 DECLAN YOUNG DO 783.1 WEIGHT GAIN ABNORMAL 10/05/2013 ALLISON CELESTE APRN 783.1 WEIGHT GAIN ABNORMAL 10/05/2013 JAZLYN GUSMANLOUISA 783.1 WEIGHT GAIN ABNORMAL 10/05/2013 JAZLYN GUSMANLOUISA 783.1 WEIGHT GAIN ABNORMAL 01/04/2014 JAZLYN GUSMAN, LOUISA Aquilino 296.32 MO DEPRESSIVE RECURRENT MODERATE 01/04/2014 JAZLYNRITU GUSMANLOUISA 919.4 INSECT BITE NONVENOMOUS OF OTHER MULTIPLE AND UNSPECIFIED SITES WITHOUT INFECTION 01/04/2014 JAZLYN GUSMAN LOUISA Aquilino 296.32 MO DEPRESSIVE RECURRENT MODERATE 01/04/2014 JAZLYN GUSMAN LOUISA Aquilino 919.4 INSECT BITE NONVENOMOUS OF OTHER MULTIPLE AND UNSPECIFIED SITES WITHOUT INFECTION 01/11/2014 JAZLYN GUSMAN LOUISA Aquilino 296.31 MO DEPRESSIVE RECURRENT MILD Procedures Code [place] [address] CULTURE WOUND (AEROBIC) 09/17/2012 32848 ROUTINE VENIPUNCTURE 10/05/2013 60602 TSH 10/05/2013 02561 PSYCH DIAGNOSTIC EVALUATION 01/04/2014 93787 PSYTX PT&/FAMILY 45 MINUTES 01/11/2014 Results Encounters ACCT No. Visit Date/Time Discharge Status Pt. Type Provider Facility Loc./Unit Complaint [id number] 01/11/2014 10:41:00 01/11/2014 23: 59:59 CLS Outpatient LOUISA BLAND [id number] 01/04/2014 10:35:00 01/04/2014 23: 59:59 CLS Outpatient LOUISA BLAND [id number] 12/16/2013 15:03:00 12/16/2013 23: 59:59 CLS Outpatient ALLISON CELESTE APRN [id number] 10/05/2013 10:14:00 10/05/2013 23: 59:59 CLS Outpatient DECLAN YOUNG DO [id number] 08/06/2013 14:25:00 08/06/2013 23: 59:59 CLS Outpatient DECLAN YOUNG DO [id number] 07/01/2013 13:21:00 07/01/2013 23: 59:59 CLS Outpatient ALLISON CELESTE APRN [id number] 05/25/2013 17:00:00 05/25/2013 23: 59:59 CLS Outpatient DECLNA YOUNG DO [id number] 04/21/2013 10:17:00 04/21/2013 23: 59:59 CLS Outpatient DECLAN YOUNG DO [id number] 10/02/2012 13:16:00 10/02/2012 23: 59:59 CLS Outpatient ALLISON CELESTE APRN [id number] 09/18/2012 15:25:00 09/18/2012 23: 59:59 CLS Outpatient ALLISON CELESTE APRN [id number] 09/01/2012 16:59:00 09/01/2012 23: 59:59 CLS Outpatient [id number] 08/22/2012 10:21:00 08/22/2012 23: 59:59 CLS Outpatient [id number] 08/04/2012 18:15:00 08/04/2012 23: 59:59 CLS Outpatient [id number] 07/16/2012 16:00:00 07/16/2012 23: 59:59 CLS Outpatient [id number] 06/13/2012 10:42:00 06/13/2012 23: 59:59 CLS Outpatient ALLISON CELESTE APRN [id number] 05/14/2012 10:28:00 05/14/2012 23: 59:59 CLS Outpatient ALLISON CELESTE APRN [id number] 01/08/2013 14:30:00 Document Registration [id number] 11/11/2012 09:18:00 Document Registration
== END 2017-01-30 08:06 | disposition home or self-care (01) ==
LOC: EDUNIT# 07:11 → ER 07:13
DX: L03.116 Cellulitis of left lower limb (principal); Z86.19 Personal history of other infectious and parasitic diseases; Z98.51 Tubal ligation status; Z90.89 Acquired absence of other organs
CPT/HCPCS: 99282

== ENCOUNTER 2017-04-24 08:17 | Emergency (ER) | payer MEDICAID ==
[~2017-04-24] VITALS: Ht 154.9 cm; Wt 81.6 kg
[~2017-04-24 08:17] MED LIST changes: +CLIN300C11 PO; +PRD10T PO
--- OUTSIDE RECORDS SUMMARY | 2017-04-24 08:23 | XMS REPORT ---
Author Author ALLISON CELESTE [facility] Address [address] [place] [address] Care Team Providers Care Nuclear Radiation Engineer Name Role Phone ALLISON CELESTE Unavailable PROBLEMS Type Condition ICD9-CM Code [id number] Code Onset Dates Condition Status SNOMED Code Problem Left adnexal tenderness R10.2 Active 348605470 Problem Irregular bleeding N92.6 Active 86167176 Problem Abnormal uterine bleeding (AUB) N93.9 Active 04806842483180 Problem Bleeding after intercourse N93.0 Active 27587358 Problem Friable cervix N88.8 Active 51384236 Problem History of depression Z86.59 Active 346190749 Problem Vaginal bleeding between periods N92.0 Active 783167548 ALLERGIES Substance Reaction Event Type Date Status Clonazepam made hyper and anxious Drug Allergy Jul, Active Bactrim hives Drug Allergy Jul, Active SOCIAL HISTORY No smoking Hx information available PLAN OF CARE Activity Details Follow Up 1 Week Reason:abcess VITAL SIGNS Height 61.5 in 2016-07-19 Weight 187.2 lbs 2016-07-19 Temperature 97.3 degrees Fahrenheit 2016-07-19 Heart Rate 60 bpm 2016-07-19 Respiratory Rate 18 2016-07-19 BMI 34.79 kg/m2 2016-07-19 Blood pressure systolic 120 mmHg 2016-07-19 Blood pressure diastolic 72 mmHg 2016-07-19 MEDICATIONS Medication Instructions Dosage Frequency Start Date End Date Duration Status Cipro 500 MG Orally Twice a day 1 tablet 12h Jul, Jul, 10 day(s) Active RESULTS No Results PROCEDURES Procedure Date Ordered Related Diagnosis Body Site Office Visit, Est Pt., Level 3 Jul 19, 2016 IMMUNIZATIONS No Known Immunizations
--- OUTSIDE RECORDS SUMMARY | 2017-04-24 08:23 | XMS REPORT ---
Author Author ALLISON CELESTE [facility] Address [address] [place] [address] Care Team Providers Care Pharmacy Technician Name Role Phone ALLISON CELESTE Unavailable PROBLEMS Type Condition ICD9-CM Code [id number] Code Onset Dates Condition Status SNOMED Code Problem Left adnexal tenderness R10.2 Active 477218706 Problem Irregular bleeding N92.6 Active 44212146 Problem Abnormal uterine bleeding (AUB) N93.9 Active 44669927587810 Problem Bleeding after intercourse N93.0 Active 98705436 Problem Friable cervix N88.8 Active 56419750 Problem History of depression Z86.59 Active 128857037 Problem Vaginal bleeding between periods N92.0 Active 869843936 ALLERGIES Substance Reaction Event Type Date Status Clonazepam made hyper and anxious Drug Allergy Jul, Active Bactrim hives Drug Allergy Jul, Active SOCIAL HISTORY No smoking Hx information available PLAN OF CARE Activity Details Follow Up prn Reason:no improvement VITAL SIGNS Height 61.5 in 2016-07-26 Weight 189.2 lbs 2016-07-26 Temperature 97.8 degrees Fahrenheit 2016-07-26 Heart Rate 68 bpm 2016-07-26 Respiratory Rate 18 2016-07-26 BMI 35.17 kg/m2 2016-07-26 Blood pressure systolic 122 mmHg 2016-07-26 Blood pressure diastolic 68 mmHg 2016-07-26 MEDICATIONS Medication Instructions Dosage Frequency Start Date End Date Duration Status Bactroban 2 % Externally 2 times a day 1 application to affected area 12h Jul, Active Cipro 500 MG Orally Twice a day 1 tablet 12h Jul, Jul, 10 day(s) Active RESULTS No Results PROCEDURES Procedure Date Ordered Related Diagnosis Body Site Office Visit, Est Pt., Level 3 Jul 26, 2016 IMMUNIZATIONS No Known Immunizations
--- OUTSIDE RECORDS SUMMARY | 2017-04-24 08:23 | XMS REPORT ---
Author Author ALLISON CELESTE [facility] Address [address] [place] [address] Care Team Providers Care Computer System Validation Specialist Name Role Phone ALLISON CELESTE Unavailable PROBLEMS Type Condition ICD9-CM Code [id number] Code Onset Dates Condition Status SNOMED Code Problem Left adnexal tenderness R10.2 Active 124219014 Problem Irregular bleeding N92.6 Active 99506757 Problem Abnormal uterine bleeding (AUB) N93.9 Active 75866301167376 Problem Bleeding after intercourse N93.0 Active 24737335 Problem Friable cervix N88.8 Active 16017974 Problem History of depression Z86.59 Active 450508620 Problem Vaginal bleeding between periods N92.0 Active 046043916 ALLERGIES Substance Reaction Event Type Date Status Clonazepam made hyper and anxious Drug Allergy Jul, Active Bactrim hives Drug Allergy Jul, Active SOCIAL HISTORY No smoking Hx information available PLAN OF CARE Activity Details Follow Up 2 - 3 Days Reason:abcess VITAL SIGNS Height 61.5 in 2016-07-16 Weight 184 lbs 2016-07-16 Temperature 98.3 degrees Fahrenheit 2016-07-16 Heart Rate 80 bpm 2016-07-16 Respiratory Rate 16 2016-07-16 BMI 34.20 kg/m2 2016-07-16 Blood pressure systolic 122 mmHg 2016-07-16 Blood pressure diastolic 70 mmHg 2016-07-16 MEDICATIONS Medication Instructions Dosage Frequency Start Date End Date Duration Status Clindamycin HCl 300 MG Orally every 8 hrs 1 capsule 8h Jul,Jul 10 days Active RESULTS Name Result Date Reference Range CULTURE, ANAEROBIC AND AEROBIC 2016-07-16 Anaerobic Culture Final report Aerobic Culture Final report Result 1 Result 1 Staphylococcus aureus Antimicrobial Susceptibility PROCEDURES Procedure Date Ordered Related Diagnosis Body Site Office Visit, Est Pt., Level 3 Jul 16, 2016 CULTURE BACTERIA ANAEROBIC Jul 16, 2016 CULTURE, BACTERIA, OTHER Jul 16, 2016 IMMUNIZATIONS No Known Immunizations
--- OUTSIDE RECORDS SUMMARY | 2017-04-24 08:23 | XMS REPORT ---
Author Author SANDOVAL DICKINSON Organization [facility] Address [address] [place] [address] Care Team Providers Care Roof Slater Name Role Phone SANDOVAL DICKINSON Unavailable PROBLEMS Type Condition ICD9-CM Code [id number] Code Onset Dates Condition Status SNOMED Code Problem Friable cervix N88.8 Active 82033354 Problem Left adnexal tenderness R10.2 Active 466454908 Problem Abscess L02.91 Active 598005344 Problem Irregular bleeding N92.6 Active 90113150 Problem Vaginal bleeding between periods N92.0 Active 585933323 Problem Bleeding after intercourse N93.0 Active 89584486 Problem Abnormal uterine bleeding (AUB) N93.9 Active 28174880565836 Problem History of depression Z86.59 Active 906734362 ALLERGIES Substance Reaction Event Type Date Status Penicillin G Sodium hives Drug Allergy Sep, Active Clonazepam made hyper and anxious Drug Allergy Sep, Active Bactrim hives Drug Allergy Sep, Active SOCIAL HISTORY Never Assessed PLAN OF CARE Activity Details Follow Up pending US Reason: VITAL SIGNS Height 61.5 in 2016-09-28 Weight 185.2 lbs 2016-09-28 Temperature 98.8 degrees Fahrenheit 2016-09-28 Heart Rate 86 bpm 2016-09-28 Respiratory Rate 16 2016-09-28 BMI 34.42 kg/m2 2016-09-28 Blood pressure systolic 124 mmHg 2016-09-28 Blood pressure diastolic 72 mmHg 2016-09-28 MEDICATIONS No Known Medications RESULTS Name Result Date Reference Range HEMOGLOBIN (IN HOUSE) 2016-09-28 HEMOGLOBIN 12.3 11.5 - 16 gm/dL Lot # [id number] Exp date 02/28 UA LONG DIP (IN HOUSE) 2016-09-28 Lot # [id number] Exp date 05/31 Clarity clear Color yellow Odor no GLU neg PERRY neg KET neg SG 1.015 BLO 3+ on menses pH 8.0 Protein neg URO 0.2 NIT neg LILA neg Lot # Exp date Ultrasound : Pelvic, COMPLETE (REFLEX CPT-24101) 2016-10-02 PROCEDURES Procedure Date Ordered Result Body Site HEMOGLOBIN September 28, 2016 URINALYSIS, AUTO, W/O SCOPE September 28, 2016 IMMUNIZATIONS No Known Immunizations MEDICAL (GENERAL) HISTORY Type Description Date Medical History migraine headaches Surgical History tonsillectomy age 10 Surgical History tubal ligation 04/2009 Hospitalization History childbirth
--- OUTSIDE RECORDS SUMMARY | 2017-04-24 08:23 | XMS REPORT ---
Author Author SANDOVAL DICKINSON Organization [facility] Address [address] [place] [address] Care Team Providers Care Back Up Machine Operator Name Role Phone SANDOVAL DICKINSON Unavailable PROBLEMS Type Condition ICD9-CM Code [id number] Code Onset Dates Condition Status SNOMED Code Problem Friable cervix N88.8 Active 41239887 Problem Left adnexal tenderness R10.2 Active 573040436 Problem Abscess L02.91 Active 489535213 Problem Irregular bleeding N92.6 Active 78291456 Problem Vaginal bleeding between periods N92.0 Active 510183586 Problem Bleeding after intercourse N93.0 Active 18000799 Problem Abnormal uterine bleeding (AUB) N93.9 Active 52560620203260 Problem History of depression Z86.59 Active 972532356 ALLERGIES Substance Reaction Event Type Date Status Clonazepam made hyper and anxious Drug Allergy Sep, Active Bactrim hives Drug Allergy Sep, Active SOCIAL HISTORY Never Assessed PLAN OF CARE Activity Details Follow Up pending results Reason: VITAL SIGNS Height 61.5 in 2016-09-19 Weight 186 lbs 2016-09-19 Temperature 98.5 degrees Fahrenheit 2016-09-19 Heart Rate 76 bpm 2016-09-19 Respiratory Rate 16 2016-09-19 BMI 34.57 kg/m2 2016-09-19 Blood pressure systolic 124 mmHg 2016-09-19 Blood pressure diastolic 70 mmHg 2016-09-19 MEDICATIONS No Known Medications RESULTS Name Result Date Reference Range CULTURE, GENITAL 2016-09-19 Genital Culture, Routine Final report Result 1 PAP TEST W/ HPV REGARDLESS 2016-09-19 DIAGNOSIS: Specimen adequacy: Clinician provided ICD10: Performed by: . . Note: HPV, high-risk Negative Negative GC/CHLAM PROBE (STATE) 2016-09-24 CHLAMYDIA GC TRICHOMONAS (IN HOUSE) 2016-09-19 TRICHOMONAS negative Control + Lot # [id number] Exp date 03/2017 HEMOCCULT (IN HOUSE) 2016-09-19 RESULTS negative Control + Lot # Exp date PDF Report 2016-09-19 PDF Report1 LCLS BACTERIAL VAGINOSIS (IN HOUSE) 2016-09-19 RESULTS negative Control + Lot # [id number] Exp date 03/2017 Ultrasound : Breast(s), Both 2016-10-01 Mammogram, Bilateral Screening 2016-09-26 PROCEDURES Procedure Date Ordered Result Body Site SPECIMEN HANDLING September 19, 2016 CULTURE, BACTERIA, OTHER September 19, 2016 EDWARDS VAG, DNA, DIR PROBE September 19, 2016 No Charge September 19, 2016 TEST FOR BLOOD, FECES September 19, 2016 TRICHOMONAS ASSAY W/OPTIC September 19, 2016 IMMUNIZATIONS No Known Immunizations MEDICAL (GENERAL) HISTORY Type Description Date Medical History migraine headaches Surgical History tonsillectomy age 10 Surgical History tubal ligation 04/2009 Hospitalization History childbirth
--- OUTSIDE RECORDS SUMMARY | 2017-04-24 08:23 | XMS REPORT ---
Author Author ALLISON CELESTE [facility] Address [address] [place] [address] Care Team Providers Care Press Set Up Name Role Phone ALLISON CELESTE Unavailable PROBLEMS Type Condition ICD9-CM Code [id number] Code Onset Dates Condition Status SNOMED Code Problem Friable cervix N88.8 Active 55058517 Problem Left adnexal tenderness R10.2 Active 068793402 Problem Abscess L02.91 Active 089763599 Problem Irregular bleeding N92.6 Active 22402914 Problem Vaginal bleeding between periods N92.0 Active 096979453 Problem Bleeding after intercourse N93.0 Active 39192692 Problem Abnormal uterine bleeding (AUB) N93.9 Active 68493589305112 Problem History of depression Z86.59 Active 777929170 ALLERGIES Substance Reaction Event Type Date Status Clonazepam made hyper and anxious Drug Allergy Sep, Active Bactrim hives Drug Allergy Sep, Active SOCIAL HISTORY Never Assessed PLAN OF CARE Activity Details Follow Up prn Reason: VITAL SIGNS Height 61.5 in 2016-09-12 Weight 186 lbs 2016-09-12 Temperature 98 degrees Fahrenheit 2016-09-12 Heart Rate 80 bpm 2016-09-12 Respiratory Rate 20 2016-09-12 BMI 34.57 kg/m2 2016-09-12 Blood pressure systolic 120 mmHg 2016-09-12 Blood pressure diastolic 82 mmHg 2016-09-12 MEDICATIONS Medication Instructions Dosage Frequency Start Date End Date Duration Status Albuterol Sulfate HFA 108 (90 Base) MCG/ACT Inhalation 4 times a day 2 puffs as needed 6h Sep, Active Benzonatate 100 mg Orally Three times a day 1 capsule as needed 8h Sep, Active PredniSONE 10 mg Orally Once a day 2tablet with food or milk 24h Sep, Sep, 05 days Active Cortisporin 3.5-75729-0 Otic Three times a day 4 drops into affected ear 8h Sep, 07 days Active RESULTS No Results PROCEDURES No Known procedures IMMUNIZATIONS No Known Immunizations MEDICAL (GENERAL) HISTORY Type Description Date Medical History migraine headaches Surgical History tonsillectomy age 10 Surgical History tubal ligation 04/2009 Hospitalization History childbirth
--- OUTSIDE RECORDS SUMMARY | 2017-04-24 08:24 | XMS REPORT | Continuity of Care Document ---
Author Author [facility] Address Unknown Phone Unavailable Allergies Active Description [...] 10/12/2008 V23.9 Supervision Of Unspecified High-risk 10/12/2008 ROLUA THAKURALLISON Arndt R 787.03 Vomiting Alone 10/12/2008 ROULA THAKURALLISON Arndt 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 10/12/2008 ROULA THAKURALLISON Arndt R V23.9 Supervision Of Unspecified High-risk 10/12/2008 ROULA HTAKURALLISON Arndt R 787.03 Vomiting Alone 10/12/2008 ROULA THAKURALLISON Arndt 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 10/12/2008 ROULA THAKURALLISON Arndt R V23.9 Supervision Of Unspecified High-risk 10/12/2008 787.03 [...] K V23.9 Supervision Of Unspecified High-risk 10/12/2008 ROULA THAKURALLISON Arndt R 787.03 Vomiting Alone 10/12/2008 ROULA THAKURALLISON Arndt 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 10/12/2008 ROULA THAKURALLISON Arndt V23.9 Supervision Of Unspecified High-risk 10/12/2008 YOUNG DO, DECLAN K 787.03 Vomiting Alone 10/12/2008 YOUNG DO, DECLAN K 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 10/12/2008 YOUNG DO, DECLAN K V23.9 Supervision Of Unspecified High-risk 10/12/2008 YOUNG DO DECLAN K 787.03 Vomiting Alone 10/12/2008 DECLAN YOUNG DO K 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 10/12/2008 YOUNG ALEX VASQUEZA K V23.9 Supervision Of Unspecified High-risk 10/12/2008 ALLISON CELESTE APRN R 787.03 Vomiting Alone 10/12/2008 ALLISON CELESTE APRN [...] DO 651.00 High Risk Multiple Gestation 11/05/2008 YOUNG ALEX VASQUEZA K 651.00 High Risk Multiple Gestation 11/05/2008 ALLISON CELESTE APRN 651.00 High Risk Multiple Gestation 11/05/2008 DECLAN YOUNG DO 651.00 High Risk Multiple Gestation 11/05/2008 YOUNG , DECLAN K 651.00 High Risk Multiple Gestation 11/05/2008 [...] Negative Rhesus Isoimmunization 11/14/2008 ALLISON CELESTE APRN R 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 11/14/2008 ALLISON [...] K 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 11/14/2008 ALLISON CELESTE APRN 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 11/14/2008 JAZLYN GUSMAN, LOUISA Rolle 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 11/14/2008 JAZLYN COLLIERYasmine, LOUISA Rolle 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 12/03/2008 ALLISON CELESTE APRN 616.10 Vaginitis Vulvovaginitis Unspecified 12/03/2008 ALLISON CELESTE APRN 616.10 Vaginitis Vulvovaginitis Unspecified 12/03/2008 616.10 Vaginitis Vulvovaginitis Unspecified 12/03/2008 616.10 Vaginitis Vulvovaginitis Unspecified 12/03/2008 616.10 Vaginitis Vulvovaginitis Unspecified 12/03/2008 616.10 Vaginitis Vulvovaginitis Unspecified 12/03/2008 ALLISON CELSETE APRN 616.10 Vaginitis Vulvovaginitis Unspecified 12/03/2008 ALLISON [...] 616.10 Vaginitis Vulvovaginitis Unspecified 12/03/2008 LOUISA BLAND W 616.10 Vaginitis Vulvovaginitis Unspecified 12/24/2008 ALLISON CELESTE [...] Site Not Specified 12/24/2008 ALLISON CELESTE APRN R 599.0 Urinary Tract Infection Site Not Specified [...] DO V23.83 High-risk With Young Primigravida 12/31/2008 YOUNG DO, DECLAN K V23.83 High-risk With Young Primigravida 12/31/2008 [...] 06/07/2009 LOUISA BLAND 305.1 NICOTINE DEPENDENCE 06/07/2009 JAZLYN COLLIERLOUISA Underwood 305.1 NICOTINE DEPENDENCE 02/20/2010 ALLISON CELESTE APRN [...] EAR 02/20/2010 380.12 ACUTE SWIMMERS' EAR 02/20/2010 YOUNG ALEX VASQUEZA K 380.12 ACUTE SWIMMERS' EAR 02/20/2010 YOUNG DO, DECLAN K 380.12 ACUTE SWIMMERS' EAR 02/20/2010 [...] DECLAN YOUNG DO 522.5 DENTOALVEOLAR ABSCESS 03/11/2012 ALEX YOUNG DOA K 522.5 DENTOALVEOLAR ABSCESS 03/11/2012 ALLISON CELESTE [...] 311 DEPRESSIVE DISORDER NOT ELSEWHERE CLASSIFIED 05/14/2012 ROULA THAKURALLISON Arndt R 311 DEPRESSIVE DISORDER NOT ELSEWHERE CLASSIFIED [...] APRN R 465.9 UPPER RESPIRATORY INFECTION 08/04/2012 CELESTEALLISON LAKE [...] LEG EXCEPT FOOT 08/22/2012 JAZLYN COLLIERF, LOUISA W 682.6 CELLULITIS AND ABSCESS OF [...] CELESTE APRN 346.90 HEADACHE, MIGRAINE 10/27/2012 JAZLYN COLLIERF, LOUISA Rolle 346.90 HEADACHE, MIGRAINE 10/27/2012 JAZLYN BALF, LOUISA Rolle 346.90 HEADACHE, MIGRAINE 11/11/2012 692.9 CONTACT DERMATITIS [...] AND OTHER ECZEMA UNSPECIFIED CAUSE 11/11/2012 JAZLYN COLLIERYasmine, LOUISA Rolle 692.9 CONTACT DERMATITIS AND OTHER [...] AND ATROPHIC CONDITIONS OF SKIN 01/08/2013 YOUNG DO DECLAN K 701.9 UNSPECIFIED HYPERTROPHIC AND ATROPHIC [...] GUSMANLOUISA 783.1 WEIGHT GAIN ABNORMAL 10/05/2013 JAZLYN GUSMAN LOUISA Aquilino 783.1 WEIGHT GAIN ABNORMAL 01/04/2014 JAZLYN GUSMAN, LOUISA W 296.32 MO DEPRESSIVE RECURRENT MODERATE 01/04/2014 JAZLYN [...] Procedures Code [place] [address] CULTURE WOUND (AEROBIC) 09/17/2012 09129 ROUTINE VENIPUNCTURE 10/05/2013 58001 TSH 10/05/2013 63230 PSYCH DIAGNOSTIC EVALUATION 01/04/2014 65336 PSYTX PT&/FAMILY 45 MINUTES 01/11/2014 Results Encounters ACCT No. Visit Date/Time Discharge Status Pt. Type Provider Facility Loc./Unit Complaint [id number] 01/11/2014 10:41:00 01/11/2014 23: 59:59 CLS Outpatient LOUISA BLAND [id number] 01/04/2014 10:35:00 01/04/2014 23: 59:59 CLS Outpatient LOUISA BLAND [id number] 12/16/2013 15:03:00 12/16/2013 23: 59:59 CLS Outpatient ALLISON CELESTE APRN [id number] 10/05/2013 10:14:00 10/05/2013 23: 59:59 CLS Outpatient DECLAN YOUNG DO [id number] 08/06/2013 14:25:00 08/06/2013 23: 59:59 CLS Outpatient DECLAN YOUNG DO [id number] 07/01/2013 13:21:00 07/01/2013 23: 59:59 CLS Outpatient ALLISON CELESTE APRN [id number] 05/25/2013 17:00:00 05/25/2013 23: 59:59 CLS Outpatient DECLAN YOUNG DO [id number] 04/21/2013 10:17:00 04/21/2013 23: 59:59 CLS Outpatient DECLAN YOUNG DO [id number] 10/02/2012 13:16:00 10/02/2012 23: 59:59 CLS Outpatient ALLISON CELESTE APRN [id number] 09/18/2012 15:25:00 09/18/2012 23: 59:59 CLS Outpatient ALLISON CELESTE APRN [id number] 09/01/2012 16:59:00 09/01/2012 23: 59:59 CLS Outpatient [id number] 08/22/2012 10:21:00 08/22/2012 23: 59:59 CLS Outpatient [id number] 08/04/2012 18:15:00 08/04/2012 23: 59:59 CLS Outpatient [id number] 07/16/2012 16:00:00 07/16/2012 23: 59:59 CLS Outpatient [id number] 06/13/2012 10:42:00 06/13/2012 23: 59:59 CLS Outpatient ALLISON CELESTE APRN [id number] 05/14/2012 10:28:00 05/14/2012 23: 59:59 CLS Outpatient ALLISON CELESTE APRN [id number] 01/08/2013 14:30:00 Document Registration [id number] 11/11/2012 09:18:00 Document Registration
--- NOTE | 2017-04-24 08:48 | Diagnostic Imaging Report ---
INDICATION: Right wrist pain AP, oblique, and lateral views of the right wrist are obtained. No fracture or acute bony abnormality is seen. Joint spaces are unremarkable. IMPRESSION: Negative right wrist. Dictated by: Dictated on workstation # [id number]
--- NOTE | 2017-04-24 09:16 | ED Upper Extremity ---
General Chief Complaint: Upper Extremity Stated Complaint: RT WRIST INJ Nursing Triage Note: AMB TO ROOM REPORTS PICKED UP APX 30LBS WITH HER R HAND WHEN SHE FELT BURNING WITH POP. PAIN IN WRIST SINCE. Nursing Sepsis Screen: No Definite Risk Source: patient History of Present Illness Time seen by provider: 09:02 Initial Comments The patient relates that yesterday she was doing lifting at in a home project. She lifted a piece weighing 40 pounds or more and immediately felt a sharp ripping tearing sensation in her right wrist and arm. She dropped the parcel. Then she iced it repeatedly. Today it continues to have a sensation of numbness and tingling and she is unable to business account specialist. 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 Onset: just prior to arrival Pain/Injury Location: right forearm, right wrist Method of Injury: other Modifying Factors: Improves With Cold Therapy Allergies and Home Medications Allergies Coded Allergies: sulfamethoxazole (Verified Allergy, Mild, 01/30/17) trimethoprim (Verified Allergy, Mild, 01/30/17) Uncoded Allergies: PENICILLIN (Adverse Reaction, Unknown, 01/30/17) Constitutional: see HPI EENTM: no symptoms reported Respiratory: no symptoms reported Cardiovascular: no symptoms reported Gastrointestinal: no symptoms reported Genitourinary: no symptoms reported Musculoskeletal: see HPI Skin: no symptoms reported Psychiatric/Neurological: No Symptoms Reported Past Otcuoxb-Utcucw-Otyqxo Hx Patient Social History Alcohol Use: Denies Use Recreational Drug Use: No Smoking Status: Current Everyday Smoker Recent Foreign Travel: No Contact w/Someone Who Travel: No Recent Infectious Disease Expo: No Recent Hopitalizations: Yes (pregnancies x6) Immunizations Up To Date Tetanus Booster (TDap): Less than 5yrs Surgeries History of Surgeries: Yes Surgeries: Tonsillectomy, Tubal Ligation Respiratory History of Respiratory Disorde: No Cardiovascular History of Cardiac Disorders: No Neurological History of Neurological Disord: No Reproductive System Hx Reproductive Disorders: No DECKHAND SHRIMP BOAT History: Tubal Ligation Gastrointestinal History of Gastrointestinal Di: No Musculoskeletal History of Musculoskeletal Dis: No Endocrine History of Endocrine Disorders: No Cancer History of Cancer: No Psychosocial History of Psychiatric Problem: No Integumentary History of Skin or Integumenta: Yes (MRSA) Blood Transfusions History of Blood Disorders: No Physical Exam Vital Signs Vital Sign - Last 12Hours 04/24/17 08:21 Temp 97.9 Pulse 86 Resp 18 B/P (MAP) 154/90 Pulse Ox 98 O2 Delivery Room Air Capillary Refill : Less Than 3 Seconds General Appearance: WD/WN, no apparent distress HEENT: normal ENT inspection Neck: full range of motion Cardiovascular: normal peripheral pulses, regular rate, rhythm, no edema, no gallop, no JVD, no murmur Respiratory: chest non-tender, lungs clear, normal breath sounds, no respiratory distress, no accessory muscle use Comments There is no discoloration, swelling, deformity noted in the right hand wrist or forearm. There is tenderness to palpation both volarly and dorsal at the wrist. Paraffin Machine Operator would be rated at one half plus on the right and 2-3+ on the left. Progress/Results/Core Measures Results/Orders My Orders Orders - NEEL IRWIN MD Wrist, Right, 3 Views Or More (04/24/17 08:25) Vital Signs/I&O Vital Sign - Last 12Hours 04/24/17 08:21 Temp 97.9 Pulse 86 Resp 18 B/P (MAP) 154/90 Pulse Ox 98 O2 Delivery Room Air Blood Pressure Mean: 111 Departure Communication (Admissions) Progress Notes X-rays are negative. Impression Impression: Primary Impression: right wrist strain Disposition: 01 HOME, SELF-CARE Condition: Stable/Unchanged Departure-Patient Inst. Decision time for Depature: 09:19 Referrals: DECLAN YOUNG DO (PCP) Primary Care Physician ALLISON CELESTE (Family) Primary Care Physician Patient Instructions: Wrist Sprain (DC) Add. Discharge Instructions: All discharge instructions reviewed with patient and/or family. Voiced understanding. You may use an Bib wrap in a [id number] to stabilize the wrist. Symptoms should improve day by day. If no improvement to speak of by the first of next week you should see your provider for the possibility of additional workup You may use naproxen or ibuprofen for pain relief NEEL IRWIN MD Apr 24, 2017 09:16
[2017-04-24 09:38] VITALS: BP 154/90
== END 2017-04-24 09:38 | disposition home or self-care (01) ==
LOC: EDUNIT# 08:17 → ER 08:19
DX: S66.911A Strain of unspecified muscle, fascia and tendon at wrist and hand level, right hand, initial encounter (principal); F17.200 Nicotine dependence, unspecified, uncomplicated; Z90.89 Acquired absence of other organs; Z98.51 Tubal ligation status; Z87.39 Personal history of other diseases of the musculoskeletal system and connective tissue; X50.0XXA Overexertion from strenuous movement or load, initial encounter
CPT/HCPCS: 73110; 99282

== ENCOUNTER 2017-06-14 15:27 | Emergency (ER) | payer MEDICAID ==
[~2017-06-14] VITALS: Ht 154.9 cm; Wt 81.6 kg
--- OUTSIDE RECORDS SUMMARY | 2017-06-14 15:33 | XMS REPORT ---
Author Author LUPE MILES [facility] Address [address] [place] [address] Care Team Providers Care Gasket Supervisor Name Role Phone LUPE MILES Unavailable PROBLEMS Type Condition ICD9-CM Code [id number] Code Onset Dates Condition Status SNOMED Code Problem Friable cervix N88.8 Active 51347818 Problem Left adnexal tenderness R10.2 Active 688272811 Problem Abscess L02.91 Active 203253586 Problem Irregular bleeding N92.6 Active 85204140 Problem Vaginal bleeding between periods N92.0 Active 223784935 Problem Bleeding after intercourse N93.0 Active 46345061 Problem Abnormal uterine bleeding (AUB) N93.9 Active 88505946450797 Problem History of depression Z86.59 Active 250529787 ALLERGIES Substance Reaction Event Type Date Status Penicillin G Sodium hives Drug Allergy Sep, Active Clonazepam made hyper and anxious Drug Allergy Sep, Active Bactrim hives Drug Allergy Sep, Active SOCIAL HISTORY Never Assessed PLAN OF CARE Activity Details Follow Up 4 Weeks with [place] Reason: VITAL SIGNS Height 61.5 in 2016-10-03 Weight 184.4 lbs 2016-10-03 Temperature 98.0 degrees Fahrenheit 2016-10-03 Heart Rate 78 bpm 2016-10-03 Respiratory Rate 18 2016-10-03 BMI 34.27 kg/m2 2016-10-03 Blood pressure systolic 128 mmHg 2016-10-03 Blood pressure diastolic 80 mmHg 2016-10-03 MEDICATIONS No Known Medications RESULTS Name Result Date Reference Range TSH W/ FREE T4 2016-10-03 TSH 0.980 0.450-4.500 T4,Free(Direct) 1.09 0.82-1.77 CBC 2016-10-03 WBC 6.4 3.4-10.8 RBC 4.26 3.77-5.28 Hemoglobin 12.1 11.1-15.9 Hematocrit 37.0 34.0-46.6 MCV 87 79-97 MCH 28.4 26.6-33.0 MCHC 32.7 31.5-35.7 RDW 13.3 12.3-15.4 Platelets 369 150-379 Neutrophils 57 Lymphs 35 Monocytes 6 Eos 2 Basos 0 Immature Cells Neutrophils (Absolute) 3.7 1.4-7.0 Lymphs (Absolute) 2.2 0.7-3.1 Monocytes(Absolute) 0.4 0.1-0.9 Eos (Absolute) 0.1 0.0-0.4 Baso (Absolute) 0.0 0.0-0.2 Immature Granulocytes 0 Immature Grans (Abs) 0.0 0.0-0.1 NRBC Hematology Comments: PROCEDURES Procedure Date Ordered Result Body Site ROUTINE VENIPUNCTURE 2016-10-03 N/A ASSAY THYROID STIM HORMONE October 03, 2016 COMPLETE CBC W/AUTO DIFF WBC October 03, 2016 ASSAY OF FREE THYROXINE October 03, 2016 IMMUNIZATIONS No Known Immunizations MEDICAL (GENERAL) HISTORY Type Description Date Medical History migraine headaches Surgical History tonsillectomy age 10 Surgical History tubal ligation 04/2009 Hospitalization History childbirth
--- OUTSIDE RECORDS SUMMARY | 2017-06-14 15:35 | XMS REPORT | Continuity of Care Document ---
Author Author Formerly [facility] Address Unknown Phone Unavailable Allergies Active [...] 10/12/2008 V23.9 Supervision Of Unspecified High-risk 10/12/2008 ROULA [...] R 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 11/14/2008 YONUG DOALEXA K 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 [...] ALLISON CELESTE APRN 346.90 HEADACHE, MIGRAINE 10/27/2012 JZALYN COLLIERF, LOUISA Rolle 346.90 HEADACHE, MIGRAINE 10/27/2012 [...] HYPERTROPHIC AND ATROPHIC CONDITIONS OF SKIN 01/08/2013 JALZYN GUSMAN, LOUISA oRlle 701.9 UNSPECIFIED HYPERTROPHIC AND ATROPHIC CONDITIONS OF [...] Procedures Code Description [place] [address] CULTURE WOUND (AEROBIC) 09/17/2012 42286 ROUTINE VENIPUNCTURE 10/05/2013 80276 TSH 10/05/2013 43855 PSYCH DIAGNOSTIC EVALUATION 01/04/2014 50658 PSYTX PT&/FAMILY 45 MINUTES 01/11/2014 Results Encounters ACCT No. Visit Date/Time Discharge Status Pt. Type Provider Facility Loc./Unit Complaint [id number] 01/11/2014 10:41:00 01/11/2014 23: 59:59 CLS Outpatient LOUISA BLAND [id number] 01/04/2014 10:35:00 01/04/2014 23: 59:59 CLS Outpatient LOUISA BLAND [id number] 12/16/2013 15:03:00 12/16/2013 23: 59:59 CLS Outpatient ALLISON CELESTE APRN [id number] 10/05/2013 10:14:00 10/05/2013 23: 59:59 CLS Outpatient DECLAN YOUNG DO [id number] 08/06/2013 14:25:00 08/06/2013 23: 59:59 CLS Outpatient DECLAN YOUNG DO [id number] 07/01/2013 13:21:00 07/01/2013 23: 59:59 CLS Outpatient ALLISON CELESTE APRN [id number] 05/25/2013 17:00:00 05/25/2013 23: 59:59 CLS Outpatient DECLAN YOUNG DO [id number] 04/21/2013 10:17:00 04/21/2013 23: 59:59 CLS Outpatient DECLAN YOUNG DO [id number] 10/02/2012 13:16:00 10/02/2012 23: 59:59 CLS Outpatient ALLISON CELESTE APRN [id number] 09/18/2012 15:25:00 09/18/2012 23: 59:59 CLS Outpatient ALLISON CELESTE APRN [id number] 09/01/2012 16:59:00 09/01/2012 23: 59:59 CLS Outpatient [id number] 08/22/2012 10:21:00 08/22/2012 23: 59:59 CLS Outpatient [id number] 08/04/2012 18:15:00 08/04/2012 23: 59:59 CLS Outpatient [id number] 07/16/2012 16:00:00 07/16/2012 23: 59:59 CLS Outpatient [id number] 06/13/2012 10:42:00 06/13/2012 23: 59:59 CLS Outpatient ALLISON CELESTE APRN [id number] 05/14/2012 10:28:00 05/14/2012 23: 59:59 CLS Outpatient ALLISON CELESTE APRN [id number] 01/08/2013 14:30:00 Document Registration [id number] 11/11/2012 09:18:00 Document Registration
--- NOTE | 2017-06-14 15:57 | ED EENT ---
History of Present Illness General Chief Complaint: Dental Problems/Pain Stated Complaint: L SIDE LOWER JAW PAIN Nursing Triage Note: PAIN IN JAW BEGAN YESTERDAY. SHE HAS NOT SEEN A DENTIST BUT BELIEVES SHE HAS AN ABCESS. Source: patient Exam Limitations: no limitations History of Present Illness Time seen by provider: 15:52 Initial Comments The patient is a 36-year-old white female who presents today with complaints of left lower jaw pain radiating towards her ear. She has had bad teeth all of her adult life. She saw a dentist 6 months ago or so and was told that she needed a total mouth extraction. She asked the monroy which was $6000. She states that she still has $2000 to save up. Timing/Duration: gradual, intermittent Location: dental Prearrival Treatment: over the counter meds Allergies and Home Medications Allergies Coded Allergies: sulfamethoxazole (Verified Allergy, Mild, 01/30/17) trimethoprim (Verified Allergy, Mild, 01/30/17) Uncoded Allergies: PENICILLIN (Adverse Reaction, Unknown, 01/30/17) Review of Systems Constitutional: see HPI Eyes: No Symptoms Reported Ears: No Symptoms Reported Nose: no symptoms reported Mouth: other (left posterior mandible) Throat: see HPI Respiratory: no symptoms reported Cardiovascular: no symptoms reported Gastrointestinal: no symptoms reported Musculoskeletal: no symptoms reported Skin: no symptoms reported Neurological: No Symptoms Reported Hematologic/Lymphatic: No Symptoms Reported Immunological/Allergic: no symptoms reported Past Wottqnp-Corxlg-Qharhf Hx Patient Social History Alcohol Use: Denies Use Recreational Drug Use: No Smoking Status: Current Everyday Smoker Type Used: Electronic/Vapor 2nd Hand Smoke Exposure: Yes Recent Foreign Travel: No Contact w/Someone Who Travel: No Recent Infectious Disease Expo: No Recent Hopitalizations: Yes (pregnancies x6) Physical Abuse: No Sexual Abuse: No Immunizations Up To Date Tetanus Booster (TDap): Less than 5yrs Date of Influenza Vaccine: May 24, 2017 Surgeries History of Surgeries: Yes Surgeries: Tonsillectomy, Tubal Ligation Respiratory History of Respiratory Disorde: No Cardiovascular History of Cardiac Disorders: No Neurological History of Neurological Disord: No Reproductive System Hx Reproductive Disorders: No HOME CARE CONSULTANT History: Tubal Ligation Genitourinary History of Genitourinary Disor: No Gastrointestinal History of Gastrointestinal Di: No Musculoskeletal History of Musculoskeletal Dis: No Endocrine History of Endocrine Disorders: No HEENT History of HEENT Disorders: No Cancer History of Cancer: No Psychosocial History of Psychiatric Problem: No Suicide Risk Score: 0 Integumentary History of Skin or Integumenta: Yes (MRSA) Blood Transfusions History of Blood Disorders: No Physical Exam Vital Signs Vital Sign - Last 12Hours 06/14/17 15:40 Temp 98.1 Pulse 110 Resp 20 B/P (MAP) 147/100 (116) Pulse Ox 95 O2 Delivery Room Air General Appearance: mild distress Eyes: bilateral eye normal inspection Ears: bilateral ear auricle normal Nose: normal inspection Neck: non-tender, full range of motion Cardiovascular: normal peripheral pulses, regular rate, rhythm, no edema, no gallop, no JVD, no murmur Respiratory: chest non-tender, lungs clear, normal breath sounds, no respiratory distress, no accessory muscle use The mouth shows all the teeth to be stumps or carious. There is not one salvageable tooth in the mouth. The Gums on the Right Mandible Appear More Hypertrophic And Swollen Than on the Left. Progress/Results/Core Measures Results/Orders My Orders Orders - NEEL IWRIN MD Lidocaine 2% Viscous 15 Ml (Xylocaine Vi (06/14/17 16:15) Vital Signs/I&O Vital Sign - Last 12Hours 06/14/17 15:40 Temp 98.1 Pulse 110 Resp 20 B/P (MAP) 147/100 (116) Pulse Ox 95 O2 Delivery Room Air Blood Pressure Mean: 116 Departure Impression Impression: Primary Impression: dental caries extending into dentine, all mouth Disposition: 01 HOME, SELF-CARE Condition: Stable/Unchanged Departure-Patient Inst. Decision time for Depature: 16:04 Referrals: DECLAN YOUNG DO (PCP) Primary Care Physician ALLISON CELESTE (Family) Primary Care Physician Patient Instructions: Tooth Decay, Adult (DC) Add. Discharge Instructions: All discharge instructions reviewed with patient and/or family. Voiced understanding. Keflex as directed. Ibuprofen 600 mg 4 times daily for pain Viscous.lidocaine to area as demonstrated. See your provider if additional needs. NEEL IRWIN MD Jun 14, 2017 15:57
[2017-06-14] MEDS ORDERED: LIDOCAINE 2% VISCOUS 15 ML UDC PO ONE (16:15)
[2017-06-14] MEDS ORDERED: CEPH500T PO (16:27)
[2017-06-14 16:50] VITALS: BP 147/100
== END 2017-06-14 16:52 | disposition home or self-care (01) ==
LOC: EDUNIT# 15:27 → ER 15:29
DX: K04.7 Periapical abscess without sinus (principal); F17.210 Nicotine dependence, cigarettes, uncomplicated; Z86.14 Personal history of Methicillin resistant Staphylococcus aureus infection; Z98.51 Tubal ligation status; Z90.89 Acquired absence of other organs
CPT/HCPCS: 99282

== ENCOUNTER → 2017-11-20 | Outpatient (CLI) | payer MEDICAID ==
[~2017-11-20] MED LIST changes: +CEPH500T PO
--- NOTE | 2017-11-20 17:56 | Diagnostic Imaging Report ---
INDICATION: Shoulder pain with movement. FINDINGS: No fracture or dislocation. The AC and glenohumeral joints appear unremarkable. The visualized adjacent ribs and pleura are unremarkable. The clavicle appears normal. IMPRESSION: No acute appearing abnormality. Dictated by: Dictated on workstation # [id number]
== END ==
LOC: RAD 17:28
PROVIDERS: ATTEND Thoracic Surgery (Cardiothoracic Vascular Surgery)
DX: M67.911 Unspecified disorder of synovium and tendon, right shoulder (principal)
CPT/HCPCS: 73030

== ENCOUNTER 2018-01-20 08:14 | Outpatient (RCR) | payer MEDICAID | END 2018-02-07 09:11 | disposition home or self-care (01) | PROVIDERS: ATTEND Nurse Practitioner Family | DX: M25.511 Pain in right shoulder (principal) ==

== ENCOUNTER 2018-04-01 15:22 | Emergency (ER) | payer MEDICAID ==
[~2018-04-01] VITALS: Ht 157.5 cm; Wt 81.6 kg
--- OUTSIDE RECORDS SUMMARY | 2018-04-01 15:28 | XMS REPORT ---
Author Author ALLISON CELESTE [facility] Address [address] [place] [address] Care Team Providers Care Head Shipper Name Role Phone ALLISON CELESTE Unavailable PROBLEMS Type Condition ICD9-CM Code NAQ90-HR Code Onset Dates Condition Status SNOMED Code Problem Vaginal bleeding between periods N92.0 Active 475482713 Problem Abnormal uterine bleeding (AUB) N93.9 Active 83339162472234 Problem History of depression Z86.59 Active 731623134 Problem Left adnexal tenderness R10.2 Active 196335955 Problem Friable cervix N88.8 Active 67599934 Problem Bleeding after intercourse N93.0 Active 07937994 Problem Neuropathy G62.9 Active 155203111 Problem Right shoulder pain, unspecified chronicity M25.511 Active 22693578 Problem Abscess L02.91 Active 786109096 Problem Irregular bleeding N92.6 Active 05511390 Problem Disorder of right rotator cuff M67.911 Active 708359572 Problem Tingling R20.2 Active 033065779 ALLERGIES No Information ENCOUNTERS Encounter Location Date Diagnosis [facility] [id number] [place] [address] Apr, [facility] [address] [address] Feb, Impingement syndrome of right shoulder M75.41 [facility] [id number] [place] [address] [id number] Feb, Right shoulder pain, unspecified chronicity M25.511 [facility] [id number] [place] [address] [id number] Jan, Right shoulder pain, unspecified chronicity M25.511 and Neuropathy G62.9 [facility] [address] [id number] [id number] Jan, Right shoulder pain, unspecified chronicity M25.511 and Neuropathy G62.9 [facility] [id number] [place] [address] [id number] Jan, [facility] [address] [id number] November, [facility] [id number] [place] [address] [id number] November, [facility] [address] [address] November, [facility] [id number] [place] [address] [id number] November, Disorder of right rotator cuff M67.[address] [id number] Oct, Ringworm B35.9 [id number] [place] [address] [id number] Apr, Cellulitis of left axilla L03.112 and Boil of upper extremity L02.429 [id number] [place] [address] [id number] Apr, Acute nasopharyngitis J00 [address] [id number] Apr, Right wrist pain M25.531 ; Encounter for immunization Z23 and Tingling R20.2 [id number] [place] [address] [id number] Mar, Abscess L02.91 and Other infective acute otitis externa of left ear H60.392 [id number] [place] [address] [id number] Feb, [address] [id number] Oct, [place] [address] [address] Oct, Irregular bleeding N92.6 [facility] [id number] [place] [address] [id number]- [address] Sep, [address] [place] [address] [id number] Sep, [id number] [place] [address] [id number] Sep, [address] [place] [address] [id number] Sep, Abnormal uterine bleeding (AUB) N93.9 and Dizziness R42 [address] [id number] Sep, Vaginal bleeding between periods N92.0 ; Friable cervix N88.8 ; Left adnexal tenderness R10.2 and Bleeding after intercourse N93.[address] [id number] Sep, Well woman exam with routine gynecological exam Z01.419 ; Screening breast examination Z12.39 ; Bleeding after intercourse N93.0 ; Friable cervix N88.8 ; Left adnexal tenderness R10.2 ; Family history of malignant neoplasm of breast in relative diagnosed when younger than 45 years of age Z80.3 and Family history of malignant neoplasm of colon Z80.0 [id number] [place] [address] [id number] Sep, Bronchitis J40 and Bilateral impacted cerumen H61.23 [address] [place] [address] [id number] Jul, Abscess L02.91 [address] [place] [address] [id number] Jul, Abscess L02.[address] [id number] Jul, Abscess of leg, left L02.[id number] [place] [address] [id number] Jun, Laryngitis J04.0 [address] [place] [address] [id number] Apr, Abscess L02.91 [address] [place] [address] [id number] Mar, [facility] [id number] [place] [address] [id number] Feb, [facility] [id number] [place] [address] [id number] Feb, Abscess L02.91 [facility] [id number] [place] [address] [id number] Feb, [facility]cess L02.91 [facility] [place] [id number] [place] [address] [id number] Jan, Encounter for immunization Z23 [facility] [id number] [place] [address] [id number] Dec, Encounter for immunization Z23 [facility] [place] [address] [id number] Oct, Pain in tooth K08.8 ; Dental abscess K04.7 and Acute swimmers ear of left side H60.332 [address] [place] [address] [id number] Aug, [facility] [id number] [place] [address] [id number] Jul, Acute laryngitis J04.0 [address] [place] [address] [id number] Feb, [facility] [id number] [place] [address] [id number] Dec, Tick bite 919.4 and Cellulitis 682.9 [address] [place] [address] [id number] November, Shoulder pain 719.41 [facility] [id number] [place] [address] [id number] November, [facility] [id number] [place] [address] Oct, [facility] [id number] [place] [address] Oct, [facility] [id number] [place] [address] [id number] Aug, [facility] [address] [id number] [address] Aug, [facility] [address] [facility] [id number][place] [id number] Aug, [facility] [address] [facility] [place] [id number] [place] Aug, [facility] [address] [facility] [id number][place] [id number] Jan, [facility] [address] [facility] [place] [id number] [place] 4820[place] Jan, [facility] [address] [facility] [id number] [place] [phone] Dec, [facility] [address] [facility] [place] [id number] [place] Dec, [facility] [address] [id number][place] [id number] Dec, [facility] [address] [facility] [id number][place] [id number] Dec, [facility] [address] [id number] [address] Dec, [facility] [address]65100[place] [address] Dec, [facility] [address] [facility] [id number], [place] [id number] Dec, [facility] [address] [id number] Dec, [facility] [address] [facility] [id number], [place] [id number] November, [facility] [address] [facility] [place] [id number] [place] [address] November, [facility] [address] [facility] [place] [id number] [place] [address] November, [facility] [address] [facility] [id number][place] [id number] November, [facility] [address] [id number] [place] [id number] Oct, [facility] [address] [facility] [place] [id number] [place] [address]- [address] Oct, [facility] [address] [id number] [place] [id number] Sep, [facility] [address] [facility] [place] [id number] [place] [address] Sep, [facility] [address] [id number], [place] [id number] Sep, [facility] [address] [facility] [place] [id number] [place] [address]- [address] Sep, [facility] [address] [facility] [id number], [place] [id number] Aug, [facility] [address] [facility] [place] [id number] [place] Aug, [facility] [address] [facility] [place] [id number] [place] 73412293- [address] Aug, [facility] [address] [facility] [id number], [place] [id number] Jul, [facility] [address] [facility] [place] [id number] [place] [address]- [address] Jul, [facility] [address] [facility] [id number], [place] [id number] Jul, [facility] [address] [facility] [place] [id number] [place] 900[place] Jul, [facility] [address] [facility] [id number] [place] [id number] Jun, [facility] [address] [facility] [place] [id number] [place] [address]- [address] Jun, [facility] [address] [facility] [id number] [place] [id number] Jun, [facility] [address] [facility] [place] [id number] [place] [address]- [address] Jun, [facility] [address] [id number] [place] [id number] Jun, [facility] [address] [facility] [place] [id number] [place] [address]- [address] Jun, [facility] [address] [id number] [place] [id number] May, [facility] [address] [facility] [id number] [place] [address]- [address] May, [facility] [address] [id number] [place] [id number] Apr, [facility] [address] [id number] [place] [id number] Dec, [facility] [address] [id number] [place] [id number] Oct, [facility] [address] [id number] [place] [id number] Oct, [facility] [address] [id number] [place] [id number] Sep, [facility] [address] [id number] [place] [id number] Sep, [facility] [address] [id number] [place] [id number] Sep, [facility] [address] [facility] [place] [id number] [place] [address]- [address] Sep, [facility] [address] [id number] [place] [id number] Sep, [facility] [address] [id number] [place] [id number] Aug, [facility] [address] [id number] [place] [id number] Aug, [facility] [address] [id number] [place] [id number] Jul, [facility] [address] [id number] [place] [id number] Jul, [facility] [address] [id number] [place] [id number] Jun, [facility] [address]00565100[place] [address] Jun, [facility] [id number], [place] [id number] May, [facility] [address]00565100[place] [address]- [address] May, [facility] [id number], [place] [id number] May, [facility] [address] [place] [address]- 25[address] May, [facility] [id number] [place] [address] [id number] Apr, [facility] [address]00565100[place] [address]- [address] Apr, [facility] [id number], [place] [id number] Apr, [facility] [address]00565100[place] [id number] Feb, [facility] [address] [place] [address] [id number] Aug, [facility] [address]00565100[place] [address]- [address] May, [facility] [address]00565100[place] [address] 25[address] Jan, [facility] [address]00565100[place] [address]- [address] Dec, IMMUNIZATIONS No Known Immunizations SOCIAL HISTORY Never Assessed REASON FOR VISIT phone call PLAN OF CARE VITAL SIGNS MEDICATIONS Unknown Medications RESULTS No Results PROCEDURES No Known procedures INSTRUCTIONS MEDICATIONS ADMINISTERED No Known Medications MEDICAL (GENERAL) HISTORY Type Description Date Medical History migraine headaches Surgical History tonsillectomy age 10 Surgical History tubal ligation 04/2009 Hospitalization History childbirth
--- OUTSIDE RECORDS SUMMARY | 2018-04-01 15:28 | XMS REPORT ---
Author Author ALLISON CELESTE [facility] Address [address] [place] [address] Care Team Providers Care Hot Top Liner Helper Name Role Phone ALLISON CELESTE Unavailable PROBLEMS Type Condition ICD9-CM Code XEW18-QY Code Onset Dates Condition Status SNOMED Code Problem Vaginal bleeding between periods N92.0 Active 888764241 Problem Abnormal uterine bleeding (AUB) N93.9 Active 13693184295619 Problem History of depression Z86.59 Active 669807019 Problem Left adnexal tenderness R10.2 Active 068364264 Problem Friable cervix N88.8 Active 85553767 Problem Bleeding after intercourse N93.0 Active 76818333 Problem Neuropathy G62.9 Active 662645677 Problem Right shoulder pain, unspecified chronicity M25.511 Active 31594402 Problem Abscess L02.91 Active 025914884 Problem Irregular bleeding N92.6 Active 20565842 Problem Disorder of right rotator cuff M67.911 Active 861323030 Problem Tingling R20.2 Active 538341949 ALLERGIES No Information ENCOUNTERS Encounter Location Date Diagnosis [facility] [id number] [place] [address] Apr, [facility] [address] [address] Feb, Impingement syndrome of right shoulder M75.41 [facility] [id number] [place] [address] [id number] Feb, Right shoulder pain, unspecified chronicity M25.511 [facility] [id number] [place] [address] [id number] Jan, Right shoulder pain, unspecified chronicity M25.511 and Neuropathy G62.9 [facility] [address] [id number] [id number] Jan, Right shoulder pain, unspecified chronicity M25.511 and Neuropathy G62.9 [facility] [id number] [place] [address] [id number] Jan, [facility] [address] [id number] November, [facility] [id number] [place] [address] [id number] November, [facility] [address] [address] November, [facility] [id number] [place] [address] [id number] November, Disorder of right rotator cuff M67.[address] [id number] Oct, Ringworm B35.9 [id number] [place] [address] [id number] Apr, Cellulitis of left axilla L03.112 and Boil of upper extremity L02.429 [id number] [place] [address] [id number] Apr, Acute nasopharyngitis J00 [address] [id number] Apr, Right wrist pain M25.531 ; Encounter for immunization Z23 and Tingling R20.2 [id number] [place] [address] [id number] Mar, Abscess L02.91 and Other infective acute otitis externa of left ear H60.392 [id number] [place] [address] [id number] Feb, [address] [id number] Oct, [address] [address] Oct, Irregular bleeding N92.6 [facility] [id number] [place] [address] [id number] [address]20 Sep, [id number] [place] [address] [id number] Sep, [id number] [place] [address] [id number] Sep, [id number] [place] [address] [id number] Sep, Abnormal uterine bleeding (AUB) N93.9 and Dizziness R42 [address] [id number] Sep, Vaginal bleeding between periods N92.0 ; Friable cervix N88.8 ; Left adnexal tenderness R10.2 and Bleeding after intercourse N93.[address] [id number] Sep, Well woman exam with routine gynecological exam Z01.419 ; Screening breast examination Z12.39 ; Bleeding after intercourse N93.0 ; Friable cervix N88.8 ; Left adnexal tenderness R10.2 ; Family history of malignant neoplasm of breast in relative diagnosed when younger than 45 years of age Z80.3 and Family history of malignant neoplasm of colon Z80.0 [id number] [place] [address] [id number] Sep, Bronchitis J40 and Bilateral impacted cerumen H61.23 [id number] [place] [address] [id number] Jul, Abscess L02.91 [id number] [place] [address] [id number] Jul, Abscess L02.[address] [id number] Jul, Abscess of leg, left L02.[id number] [place] [address] [id number] Jun, Laryngitis J04.0 [id number] [place] [address] [id number] Apr, Abscess L02.91 [id number] [place] [address] [id number] Mar, [facility] [id number] [place] [address] [id number] Feb, [facility] [id number] [place] [address] [id number] Feb, Abscess L02.91 [facility] [id number] [place] [address] [id number] Feb, Abscess L02.91 [facility] [id number] [place] [address] [id number] Jan, Encounter for immunization Z23 [facility] [id number] [place] [address] [id number] Dec, Encounter for immunization Z23 [facility] [address] [id number] Oct, Pain in tooth K08.8 ; Dental abscess K04.7 and Acute swimmers ear of left side H60.332 [id number] [place] [address] [id number] Aug, [facility] [id number] [place] [address] [id number] Jul, Acute laryngitis J04.0 [id number] [place] [address] [id number] Feb, [facility] [id number] [place] [address] [id number] Dec, Tick bite 919.4 and Cellulitis 682.9 [id number] [place] [address] [id number] November, Shoulder pain 719.41 [facility] [id number] [place] [address] [id number] November, [facility] [id number] [place] [address]- [address] Oct, [facility] [id number] [place] [address]- [address] Oct, [facility] [id number] [place] [address] [id number] Aug, [facility] [address] [id number] [address] Aug, [facility] [address] [facility] [id number][place] [id number] Aug, [facility] [address] [facility] [id number], [place] 255643[address] Aug, [facility] [address] [facility] [id number][place] [id number] Jan, [facility] [address] [facility] [id number], [place] 713326- [address] Jan, [facility] [address] [facility] [id number] [place] [id number] Dec, [facility] [address] [facility] [id number]25[place] [address] Dec, [facility] [address] [id number][place] [id number] Dec, [facility] [address] [facility] [id number][place] [id number] Dec, [facility] [address] [id number], [place] [address]- [address] Dec, [facility] [address], [place] [address] Dec, [facility] [address] [facility] [id number], [place] [id number] Dec, [facility] [address] [id number] Dec, [facility] [address] [facility] [id number][place] [id number] November, [facility] [address] [facility] [id number], [place] [address]- [address] November, [facility] [address] [facility] [id number], [place] [address]- [address] November, [facility] [address] [facility] [id number][place] [id number] November, [facility] [address] [id number] [place] [id number] Oct, [facility] [address] [facility] [id number], [place] [address]- [address] Oct, [facility] [address] [id number] [place] [id number] Sep, [facility] [address] [facility] [id number], [place] [address]- 97[address] Sep, [facility] [address] [id number], [place] [id number] Sep, [facility] [address] [facility] [id number], [place] [address]- 9[address] Sep, [facility] [address] [facility] [id number], [place] [id number] Aug, [facility] [address] [facility] [id number], [place] 443219- [address] Aug, [facility] [address] [facility] [id number], [place] 98224526- [address] Aug, [facility] [address] [facility] [id number], [place] [id number] Jul, [facility] [address] [facility] [id number], [place] [address]- 9668 Jul, [facility] [address] [facility] [id number], [place] [id number] Jul, [facility] [address] [facility] [id number], [place] 785421- [address] Jul, [facility] [address] [facility] [id number] [place] [id number] Jun, [facility] [address] [facility] [id number], [place] [address]- [address]97 Jun, [facility] [address] [facility] [id number] [place] [id number] Jun, [facility] [address] [facility] [id number][place] 156070- [address] Jun, [facility] [address] [id number] [place] [id number] Jun, [facility] [address] [facility] [id number], [place] [address]- [address] Jun, [facility] [address] [id number] [place] [id number] May, [facility] [address] [facility] [id number][place] [address]- [address] May, [facility] [address] [id number] [place] [id number] Apr, [facility] [address] [id number] [place] [id number] Dec, [facility] [address] [id number] [place] [id number] Oct, [facility] [address] [id number] [place] [id number] Oct, [facility] [address] [id number] [place] [id number] Sep, [facility] [address] [id number] [place] [id number] Sep, [facility] [address] [id number] [place] [id number] Sep, [facility] [address] [facility] [id number][place] [address]- [address] Sep, [facility] [address] [id number] [place] 095157583 Sep, [facility] [address] [id number] [place] [id number] Aug, [facility] [address] [id number] [place] [id number] Aug, [facility] [address] [id number] [place] [id number] Jul, [facility] [address] [id number] [place] [id number] Jul, [facility] [address] [id number] [place] [id number] Jun, [facility] [address]00565100[place], [place] [address]- [address] Jun, [facility] [id number], [place] [id number] May, [facility] [address]00565100[place], [place] [address]- [address] May, [facility] [id number], [place] [id number] May, [facility] [id number] [place] [address]- [address] May, [facility] [id number] [place] [address] [id number] Apr, [facility] [address]65100[place], [place] [address]- 25[address] Apr, [facility] [id number], [place] [id number] Apr, [facility] [address]00565[place] [id number] Feb, [facility] [address] [place] [address] [id number] Aug, [facility] [address]00565100[place], [place] [address]- [address] May, [facility] [address]00565100[place], [place] [address]- [address] Jan, [facility] [address]00565100[place], [place] [address]- [address] Dec, IMMUNIZATIONS No Known Immunizations SOCIAL HISTORY Never Assessed REASON FOR VISIT FY only PLAN OF CARE VITAL SIGNS MEDICATIONS Unknown Medications RESULTS No Results PROCEDURES No Known procedures INSTRUCTIONS MEDICATIONS ADMINISTERED No Known Medications MEDICAL (GENERAL) HISTORY Type Description Date Medical History migraine headaches Surgical History tonsillectomy age 10 Surgical History tubal ligation 04/2009 Hospitalization History childbirth
--- OUTSIDE RECORDS SUMMARY | 2018-04-01 15:28 | XMS REPORT ---
Author Author RIZWANA BRAVO Organization [facility] Address [address] [place] [address] Care Team Providers Care Floor Broker Name Role Phone BLAYNEJAYDAFIDELINA RIZWANA Unavailable PROBLEMS Type Condition ICD9-CM Code MCT38-PW Code Onset Dates Condition Status SNOMED Code Problem Vaginal bleeding between periods N92.0 Active 032816492 Problem Abnormal uterine bleeding (AUB) N93.9 Active 26413562632336 Problem History of depression Z86.59 Active 944972389 Problem Left adnexal tenderness R10.2 Active 768225016 Problem Friable cervix N88.8 Active 50459052 Problem Bleeding after intercourse N93.0 Active 47675711 Problem Neuropathy G62.9 Active 842389686 Problem Right shoulder pain, unspecified chronicity M25.511 Active 10841987 Problem Abscess L02.91 Active 255284374 Problem Irregular bleeding N92.6 Active 52179115 Problem Disorder of right rotator cuff M67.911 Active 444774744 Problem Tingling R20.2 Active 574073875 ALLERGIES Substance Reaction Event Type Date Status Penicillin G Sodium hives Drug Allergy Jan, Active Clonazepam made hyper and anxious Drug Allergy Jan, Active Bactrim hives Drug Allergy Jan, Active ENCOUNTERS Encounter Location Date Diagnosis [facility] [address] [facility] [id number], [place] [address] Apr, [facility] [address] [facility] [id number], [place] [address] Feb, Impingement syndrome of right shoulder M75.41 [facility] [address] [id number] [id number] Feb, Right shoulder pain, unspecified chronicity M25.511 [facility] [address] [facility] [id number] [id number] Jan, Right shoulder pain, unspecified chronicity M25.511 and Neuropathy G62.9 [id number] [place] [address] [id number] Jan, Right shoulder pain, unspecified chronicity M25.511 and Neuropathy G62.9 [id number] [place] [address] [id number] Jan, [id number] [place] [id number] November, [address] [id number] November, [facility] [address] [id number] November, [address] [id number] November, Disorder of right rotator cuff M67.[address] [id number] Oct, Ringworm B35.9 [id number] [place] [address] [id number] Apr, Cellulitis of left axilla L03.112 and Boil of upper extremity L02.429 [id number] [place] [address] [id number] Apr, Acute nasopharyngitis J00 [id number] [place] [address] [id number] Apr, Right wrist pain M25.531 ; Encounter for immunization Z23 and Tingling R20.2 [id number] [place] [address] [id number] Mar, Abscess L02.91 and Other infective acute otitis externa of left ear H60.[id number] [place] [address] [id number] Feb, [id number] [place] [address] [id number] Oct, [facility] [address] [address] Oct, Irregular bleeding N92.6 [facility] [address] [id number], [place] [address] Sep, [address] [id number] Sep, [address] [id number] Sep, [facility] [address] [id number] [id number] Sep, Abnormal uterine bleeding (AUB) N93.9 and Dizziness R42 [address] [place] [address] [id number] Sep, Vaginal bleeding between periods N92.0 ; Friable cervix N88.8 ; Left adnexal tenderness R10.2 and Bleeding after intercourse N93.0 [address] [place] [address] [id number] Sep, Well woman exam with routine gynecological exam Z01.419 ; Screening breast examination Z12.39 ; Bleeding after intercourse N93.0 ; Friable cervix N88.8 ; Left adnexal tenderness R10.2 ; Family history of malignant neoplasm of breast in relative diagnosed when younger than 45 years of age Z80.3 and Family history of malignant neoplasm of colon Z80.0 [address] [id number] [id number] Sep, Bronchitis J40 and Bilateral impacted cerumen H61.23 [address] [id number] Jul, Abscess L02.91 [address] [id number] Jul, Abscess L02.91 [address] [place] [address] [id number] Jul, Abscess of leg, left L02.416 [facility] [address] [id number] [id number] Jun, Laryngitis J04.[address] [place] [address] [id number] Apr, Abscess L02.91 [facility] [place] [id number] [place] [address] [id number] Mar, [facility] [id number] [place] [address] [id number] Feb, [facility] [id number] [place] [address] [id number] Feb, Abscess L02.91 [facility] [place] [address] [id number] Feb, Abscess L02.91 [facility] [place] [id number] [place] [address] [id number] Jan, Encounter for immunization Z23 [facility] [place] [address] [id number] Dec, Encounter for immunization Z23 [facility] [id number] [place] [address] [id number] Oct, Pain in tooth K08.8 ; Dental abscess K04.7 and Acute swimmers ear of left side H60.332 [facility] [id number] [place] [address] [id number] Aug, [facility] [id number] [place] [address] [id number] Jul, Acute laryngitis J04.0 [facility] [id number] [place] [address] [id number] Feb, [facility] [id number] [place] [address] [id number] Dec, Tick bite 919.4 and Cellulitis 682.9 [facility] [id number] [place] [address] [id number] November, Shoulder pain 719.41 [id number] [place] [address] [id number] November, [facility] [id number] [place] [address] Oct, [facility] [address] [address] Oct, [facility] [address] [id number] [place] [id number] Aug, [facility] [place] [facility] [address] [facility] [id number] [place] [address] Aug, [facility] [address] [facility] [id number] [place] [id number] Aug, [facility] [place] [facility] [address] [facility] [id number], [place] [address] Aug, [facility] [address] [id number] [place] [id number] Jan, [facility] [place] [facility] [address] [id number], [place] [address] Jan, [facility] [address] [facility] [id number] [place] [id number] Dec, [facility] [place] [facility] [address] [id number], [place] [address] Dec, [facility] [address] [id number] [place] [id number] Dec, [facility] [address] [id number] [place] [id number] Dec, [facility] [place] [facility] [address] [id number], [place] [address] Dec, [facility] [place] [facility] [address] [id number], [place] [address] Dec, [facility] [address] [facility] [id number] [place] [id number] Dec, [facility] [place] [facility] [address] [facility] [id number], [place] [address] Dec, [facility] [address] [facility] [id number] [place] [id number] November, [facility] [place] [facility] [address] [id number], [place] [address] November, [facility] [place] [facility] [address] [id number], [place] [address] November, [facility] [address] [id number] [place] [id number] November, [facility] [address] [id number] [place] [id number] Oct, [facility] [place] [facility] [address] [facility] [id number] [place] [address] Oct, [facility] [address] [id number] [place] [id number] Sep, [facility] [place] [facility] [address] [id number] [place] [address] Sep, [facility] [address] [id number] [place] [id number] Sep, [facility] [place] [facility] [address] [facility] [id number], [place] [address] Sep, [facility] [address] [facility] [id number] [id number] Aug, [facility] [place] [facility] [address] [facility] [id number] [place] [address] Aug, [facility] [place] [facility] [address] [facility] [id number], [place] [address] Aug, [facility] [address] [facility] [id number][place] [id number] Jul, [facility] [place] [facility] [address] [facility] [id number], [place] [address] Jul, [facility] [address] [id number], [place] [id number] Jul, [facility] [place] [facility] [address] [facility] [id number], [place] [address]- [address] Jul, [facility] [address] [id number][place] [id number] Jun, [facility] [place] [facility] [address] [facility] [id number], [place] [address] Jun, [facility] [address] [id number] [place] [id number] Jun, [facility] [address] [facility] [id number], [place] [address] Jun, [facility] [address] [id number] [place] [id number] Jun, [facility] [address] [facility] [id number], [place] [address] Jun, [facility] [address] [id number] [place] [id number] May, [facility] [address] [facility] [id number], [place] [address] May, [facility] [address] [id number] [place] [id number] Apr, [facility] [address] [id number] [place] [id number] Dec, [facility] [address] [id number] [place] [id number] 30 Oct, 2012 [facility] [address] [id number] [place] [id number] Oct, [facility] [address] [id number] [place] [id number] Sep, [facility] [address] [id number] [place] [id number] Sep, [facility] [address] [id number] [place] [id number] Sep, [facility] [address] [facility] [id number], [place] [address] Sep, [facility] [address] [id number] [place] [id number] Sep, [facility] [address] [id number] [place] [id number] Aug, [facility] [address] [id number] [place] [id number] Aug, [facility] [address] [id number][place] [id number] Jul, [facility] [address] [id number] [id number] Jul, [facility] [id number] [place] [address] [id number] Jun, [facility] [id number] [place] [address] Jun, [facility] [id number], [place] [id number] May, [facility] [id number] [place] [address]- [address] May, [facility] [id number] [place] [address] [id number] May, [facility] [id number] [place] [address]- [address] May, [facility] [id number] [place] [address] [id number] Apr, [facility] [id number] [place] [address]- [address] Apr, [facility] [id number] [place] [address] [id number] Apr, [facility] [place] [id number] [place] [address] [id number] Feb, [facility] [place] [id number] [place] [address] [id number] Aug, [facility] [id number] [place] [address]- [address] May, [facility] [address]65100[place], [place] [address] Jan, [facility] [id number] [place] [address]- 1356 Dec, IMMUNIZATIONS No Known Immunizations SOCIAL HISTORY Never Assessed REASON FOR VISIT Recheck on right shoulder pain after completed 4 weeks of PT. Has not been released to go back to work yet Evan VALVERDE PLAN OF CARE Activity Details Follow Up prn Reason: VITAL SIGNS Height 61.5 in 2018-01-31 Weight 178.8 lbs 2018-01-31 Temperature 98 degrees Fahrenheit 2018-01-31 Heart Rate 70 bpm 2018-01-31 Respiratory Rate 16 2018-01-31 BMI 33.23 kg/m2 2018-01-31 Blood pressure systolic 110 mmHg 2018-01-31 Blood pressure diastolic 68 mmHg 2018-01-31 MEDICATIONS Medication Instructions Dosage Frequency Start Date End Date Duration Status Ibuprofen 800 MG Orally Three times a day 1 tablet with food or milk as needed 8h 30 Active RESULTS Name Result Date Reference Range MRI : Shoulder, Right PROCEDURES No Known procedures INSTRUCTIONS MEDICATIONS ADMINISTERED No Known Medications MEDICAL (GENERAL) HISTORY Type Description Date Medical History migraine headaches Surgical History tonsillectomy age 10 Surgical History tubal ligation 04/2009 Hospitalization History childbirth
--- OUTSIDE RECORDS SUMMARY | 2018-04-01 15:33 | XMS REPORT | Continuity of Care Document ---
Author Author [facility] Address Unknown Phone Unavailable Allergies Active Description Code Type Severity Reaction Onset Reported/Identified Relationship to Patient Clinical Status Yes Penicillins Drug Allergy N/A N/A 02/20/2010 Yes Penicillins Drug Allergy 02/20/2010 Yes Bactrim Drug Allergy N/A N/A 06/13/2012 Yes Bactrim Drug Allergy 06/13/2012 Yes clonazepam Drug Allergy N/A N/A 08/06/2013 Yes sulfamethoxazole [id number] Drug Allergy Mild N/A 01/30/2017 Yes trimethoprim [id number] Drug Allergy Mild N/A 01/30/2017 Yes PENICILLIN PENICILLIN Unknown N/A 01/30/2017 Medications There is no data. 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 10/12/2008 CELESTE ALLISON WEEKS V23.9 Supervision Of Unspecified High-risk 10/12/2008 787.03 Vomiting Alone 10/12/2008 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 10/12/2008 V23.9 Supervision Of Unspecified High-risk 10/12/2008 787.03 Vomiting Alone 10/12/2008 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 10/12/2008 V23.9 Supervision Of Unspecified High-risk 10/12/2008 ALEX YOUNG DOA K 787.03 Vomiting Alone 10/12/2008 YOUNG ALEX VASQUEZA K 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 10/12/2008 ALEX YOUNG DOA K V23.9 Supervision Of Unspecified High-risk 10/12/2008 YOUNG ALEX VASQUEZA K 787.03 Vomiting Alone 10/12/2008 YOUNG DO DECLAN K 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] Risk Multiple Gestation 11/05/2008 DECLAN YOUNG DO K 651.00 High Risk Multiple Gestation 11/05/2008 ALEX YOUNG DOA K 651.00 High Risk Multiple Gestation 11/05/2008 CELESTE ALLISON WEEKS 651.00 High Risk Multiple Gestation 11/05/2008 DECLAN YOUNG DO K 651.00 High Risk Multiple Gestation 11/05/2008 DECLAN YOUNG DO K 651.00 High Risk Multiple Gestation 11/05/2008 ALLISON CELESTE APRN R 651.00 High Risk Multiple Gestation 11/05/2008 JAZLYN [facility] [place] Rolle 651.00 High Risk Multiple Gestation 11/05/2008 [facility] Rol[facility] 651.00 High Risk Multiple Gestation [...] 11/14/2008 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 11/14/2008 DECLAN YOUNG DO 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 11/14/2008 DECLAN YOUNG DO K 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 11/14/2008 CELESTE ALLISON WEEKS 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 11/14/2008 DECLAN YOUNG DO K 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 11/14/2008 DECLAN YOUNG DO K 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 11/14/2008 ALLISON CELESTE APRN 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 11/14/2008 JAZLYN [facility] [place] Rolle 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 [...] Unspecified 12/03/2008 616.10 Vaginitis Vulvovaginitis Unspecified 12/03/2008 DECLAN YOUNG DO K 616.10 Vaginitis Vulvovaginitis Unspecified 12/03/2008 ALEX YOUNG DOA K 616.10 Vaginitis Vulvovaginitis Unspecified 12/03/2008 ALLISON CELESTE APRN R 616.10 Vaginitis Vulvovaginitis Unspecified 12/03/2008 ALEX YOUNG DOA K 616.10 Vaginitis Vulvovaginitis Unspecified 12/03/2008 ALEX YOUNG DOA K 616.10 Vaginitis Vulvovaginitis Unspecified 12/03/2008 ALLISON CELESTE APRN 616.10 Vaginitis Vulvovaginitis Unspecified 12/03/2008 LOUISA BLAND 616.10 Vaginitis Vulvovaginitis Unspecified 12/03/2008 JAZLYN GUSMAN, LOUISA Rolle 616.10 Vaginitis Vulvovaginitis Unspecified 12/24/2008 ALLISON CELESTE [...] Tract Infection Site Not Specified 12/24/2008 JAZLYN BALF, LOUISA W 599.0 Urinary Tract Infection Site Not Specified 12/24/2008 JAZLYN NANDOMF, LOUISA W 599.0 Urinary Tract Infection Site [...] 12/31/2008 V23.83 High-risk With Young Primigravida 12/31/2008 YOUNG DOALEXA K V23.83 High-risk With Young Primigravida 12/31/2008 YOUNG ALEX VASQUEZA K V23.83 High-risk With Young Primigravida 12/31/2008 ALLISON CELESTE APRN V23.83 High-risk With Young Primigravida 12/31/2008 ALEX YOUNG DOA K V23.83 High-risk With Young Primigravida 12/31/2008 YOUNG ALEX VASQUEZA K V23.83 High-risk With Young Primigravida 12/31/2008 ALLISON CELESTE APRN V23.83 High-risk With Young Primigravida 12/31/2008 JAZLYN [facility] [place] Rolle V23.83 High-risk With Young Primigravida 12/31/2008 JAZLYN [facility] [place] Rolle V23.83 High-risk With Young Primigravida 06/07/2009 ALLISON CELESTE APRN 305.1 NICOTINE DEPENDENCE 06/07/2009 ALLISON CELESTE APRN 305.1 NICOTINE DEPENDENCE 06/07/2009 305.1 NICOTINE DEPENDENCE 06/07/2009 305.1 NICOTINE DEPENDENCE 06/07/2009 305.1 NICOTINE DEPENDENCE 06/07/2009 305.1 NICOTINE DEPENDENCE 06/07/2009 ALLISON CELESTE APRN 305.1 NICOTINE DEPENDENCE 06/07/2009 ALLISON CELESTE APRN 305.1 NICOTINE DEPENDENCE 06/07/2009 305.1 NICOTINE DEPENDENCE 06/07/2009 305.1 NICOTINE DEPENDENCE 06/07/2009 ALEX YOUNG DOA K 305.1 NICOTINE DEPENDENCE 06/07/2009 ALEX YOUNG DOA K 305.1 NICOTINE DEPENDENCE 06/07/2009 ALLISON CELESTE APRN 305.1 NICOTINE DEPENDENCE 06/07/2009 ALEX YOUNG DOA K 305.1 NICOTINE DEPENDENCE 06/07/2009 HANNAH VASQUEZ DECLAN K 305.1 NICOTINE DEPENDENCE 06/07/2009 ALLISON CELESTE APRN 305.1 NICOTINE DEPENDENCE 06/07/2009 [facility] 305.1 NICOTINE DEPENDENCE 06/07/2009 JAZLYN COLLIER, LOUISA Rolle 305.1 NICOTINE DEPENDENCE 02/20/2010 ALLISON CELESTE APRN 380.12 ACUTE SWIMMERS' EAR 02/20/2010 ALLISON CELESTE APRN 380.12 ACUTE SWIMMERS' EAR 02/20/2010 380.12 ACUTE SWIMMERS' EAR 02/20/2010 380.12 ACUTE SWIMMERS' EAR 02/20/2010 380.12 ACUTE SWIMMERS' EAR 02/20/2010 380.12 ACUTE SWIMMERS' EAR 02/20/2010 ALLISNO CELESTE APRN 380.12 ACUTE SWIMMERS' EAR 02/20/2010 ALLISON CELESTE APRN 380.12 ACUTE SWIMMERS' EAR 02/20/2010 380.12 ACUTE SWIMMERS' EAR 02/20/2010 380.12 ACUTE SWIMMERS' EAR 02/20/2010 YOUNG DO, DECLAN K 380.12 ACUTE SWIMMERS' EAR 02/20/2010 YOUNG DO, DECLAN K 380.12 ACUTE SWIMMERS' EAR 02/20/2010 ALLISON CELESTE APRN 380.12 ACUTE SWIMMERS' EAR 02/20/2010 OYUNG DO, DECLAN K 380.12 ACUTE SWIMMERS' EAR 02/20/2010 YOUNG DO, DECLAN K 380.12 ACUTE SWIMMERS' EAR 02/20/2010 ALLISON CELESTE APRN 380.12 ACUTE SWIMMERS' EAR 02/20/2010 JAZLYN GUSMAN, LOUISA Rolle 380.12 ACUTE SWIMMERS' EAR 02/20/2010 JAZLYN [facility] [place] Rolle 380.12 ACUTE SWIMMERS' EAR 03/04/2010 Ot 380.10 INFEC OTITIS EXTERNA NOS 03/04/2010 Ot 388.70 OTALGIA NOS 03/11/2012 ALLISON CELESTE APRN 522.5 DENTOALVEOLAR ABSCESS 03/11/2012 ALLISON CELESTE APRN 522.5 DENTOALVEOLAR ABSCESS 03/11/2012 522.5 DENTOALVEOLAR ABSCESS 03/11/2012 522.5 DENTOALVEOLAR ABSCESS 03/11/2012 522.5 DENTOALVEOLAR ABSCESS 03/11/2012 522.5 DENTOALVEOLAR ABSCESS 03/11/2012 ALLISON CELESTE APRN 522.5 DENTOALVEOLAR ABSCESS 03/11/2012 CELESTE MAKEUP SALES ADVISOR, ALLISON R 522.5 DENTOALVEOLAR ABSCESS 03/11/2012 522.5 DENTOALVEOLAR ABSCESS 03/11/2012 522.5 DENTOALVEOLAR ABSCESS 03/11/2012 YOUNG DO, DECLAN K 522.5 DENTOALVEOLAR ABSCESS 03/11/2012 YOUNG DO, DECLAN K 522.5 DENTOALVEOLAR ABSCESS 03/11/2012 CELESTEALEKSANDRA THAKURN, ALLISON R 522.5 DENTOALVEOLAR ABSCESS 03/11/2012 YOUNG DO, DECLAN K 522.5 DENTOALVEOLAR ABSCESS 03/11/2012 YOUNG DO, DECLAN K 522.5 DENTOALVEOLAR ABSCESS 03/11/2012 CELESTEALEKSANDRA THAKURN, ALLISON R 522.5 DENTOALVEOLAR ABSCESS 03/11/2012 JAZLYN L[facility], LOUISA W 522.5 DENTOALVEOLAR ABSCESS 03/11/2012 JAZLYN LCMF, [place]OUISA W 522.5 DENTOALVEOLAR ABSCESS 05/14/2012 CELESTEALLISON LAKE APRN R 311 DEPRESSIVE DISORDER NOT ELSEWHERE CLASSIFIED 05/14/2012 CELESTEALLISON LAKE APRN R 311 DEPRESSIVE DISORDER NOT ELSEWHERE CLASSIFIED 05/14/2012 311 DEPRESSIVE DISORDER NOT ELSEWHERE CLASSIFIED 05/14/2012 311 DEPRESSIVE DISORDER NOT ELSEWHERE CLASSIFIED 05/14/2012 311 DEPRESSIVE DISORDER NOT ELSEWHERE CLASSIFIED 05/14/2012 311 DEPRESSIVE DISORDER NOT ELSEWHERE CLASSIFIED 05/14/2012 CELESTEALLISON LAKE APRN R 311 DEPRESSIVE DISORDER NOT ELSEWHERE CLASSIFIED 05/14/2012 CELESTEALLISON LAKE APRN R 311 DEPRESSIVE DISORDER NOT ELSEWHERE CLASSIFIED 05/14/2012 311 DEPRESSIVE DISORDER NOT ELSEWHERE CLASSIFIED 05/14/2012 311 DEPRESSIVE DISORDER NOT ELSEWHERE CLASSIFIED 05/14/2012 YOUNG DO DECLAN K 311 DEPRESSIVE DISORDER NOT ELSEWHERE CLASSIFIED 05/14/2012 YOUNG DO DECLAN K 311 DEPRESSIVE DISORDER NOT ELSEWHERE CLASSIFIED 05/14/2012 CELESTE MAKEUP SALES ADVISORALLISON Arndt R 311 DEPRESSIVE DISORDER NOT ELSEWHERE CLASSIFIED 05/14/2012 YOUNG DO, DECLAN K 311 DEPRESSIVE DISORDER NOT ELSEWHERE CLASSIFIED 05/14/2012 YOUNG DO DECLAN K 311 DEPRESSIVE DISORDER NOT ELSEWHERE CLASSIFIED 05/14/2012 CELESTEALLISON LAKE APRN R 311 DEPRESSIVE DISORDER NOT ELSEWHERE CLASSIFIED 05/14/2012 JAZLYN [facility], LOUISA W 311 DEPRESSIVE DISORDER NOT ELSEWHERE CLASSIFIED 05/14/2012 JAZLYN LCM[facility], [place]OUISA W 311 DEPRESSIVE DISORDER NOT ELSEWHERE CLASSIFIED 08/04/2012 465.9 UPPER RESPIRATORY INFECTION 08/04/2012 465.9 UPPER RESPIRATORY INFECTION 08/04/2012 465.9 UPPER RESPIRATORY INFECTION 08/04/2012 ALLISON CELESTE APRN R 465.9 UPPER RESPIRATORY INFECTION 08/04/2012 ALLISON CELESTE APRN R 465.9 UPPER RESPIRATORY INFECTION 08/04/2012 465.9 UPPER RESPIRATORY INFECTION 08/04/2012 465.9 UPPER RESPIRATORY INFECTION 08/04/2012 YOUNG DO, DECLAN K 465.9 UPPER RESPIRATORY INFECTION 08/04/2012 YOUNG DO, DECLAN K 465.9 UPPER RESPIRATORY INFECTION 08/04/2012 ALLISON CELESTE APRN R 465.9 UPPER RESPIRATORY INFECTION 08/04/2012 YOUNG DO, DECLAN K 465.9 UPPER RESPIRATORY INFECTION 08/04/2012 YOUNG DO, DECLAN K 465.9 UPPER RESPIRATORY INFECTION 08/04/2012 ALLISON CELESTE APRN R 465.9 UPPER RESPIRATORY INFECTION 08/04/2012 JAZLYN LCF, LOUISA W 465.9 UPPER RESPIRATORY INFECTION 08/04/2012 [...] AND ABSCESS OF LEG EXCEPT FOOT 08/22/2012 ALEX YOUNG DOA K 682.6 CELLULITIS AND ABSCESS OF LEG EXCEPT FOOT 08/22/2012 ALLISON CELESTE APRN 682.6 CELLULITIS AND ABSCESS OF LEG EXCEPT FOOT 08/22/2012 ALEX YOUNG DOA K 682.6 CELLULITIS AND ABSCESS OF LEG EXCEPT FOOT 08/22/2012 ALEX YOUNG DOA K 682.6 CELLULITIS AND ABSCESS OF LEG EXCEPT FOOT 08/22/2012 ALLISON CELESTE APRN 682.6 CELLULITIS AND ABSCESS OF LEG EXCEPT FOOT 08/22/2012 JAZLYN BALF, LOUISA Rolle 682.6 CELLULITIS AND ABSCESS OF LEG EXCEPT FOOT 08/22/2012 JAZLYN BALF, LOUISA W 682.6 CELLULITIS AND ABSCESS OF LEG EXCEPT FOOT 10/27/2012 346.90 HEADACHE, MIGRAINE 10/27/2012 346.90 HEADACHE, MIGRAINE 10/27/2012 YOUNG DO, DECLAN [...] DERMATITIS AND OTHER ECZEMA UNSPECIFIED CAUSE 11/11/2012 ALEX YOUNG DOA K 692.9 CONTACT DERMATITIS AND OTHER ECZEMA UNSPECIFIED CAUSE 11/11/2012 ALEX YOUNG DOA K 692.9 CONTACT DERMATITIS AND OTHER ECZEMA UNSPECIFIED CAUSE 11/11/2012 ALLISON CELESTE APRN 692.9 CONTACT DERMATITIS AND OTHER ECZEMA UNSPECIFIED CAUSE 11/11/2012 YOUNG ALEX VASQUEZA K 692.9 CONTACT DERMATITIS AND OTHER ECZEMA UNSPECIFIED CAUSE 11/11/2012 ALEX YOUNG DOA K 692.9 CONTACT DERMATITIS AND OTHER ECZEMA UNSPECIFIED CAUSE 11/11/2012 ALLISON CELESTE APRN 692.9 CONTACT DERMATITIS AND OTHER ECZEMA UNSPECIFIED CAUSE 11/11/2012 LOUISA BLAND 692.9 CONTACT DERMATITIS AND OTHER ECZEMA UNSPECIFIED CAUSE 11/11/2012 LOUISA BLAND 692.9 CONTACT DERMATITIS AND OTHER ECZEMA UNSPECIFIED CAUSE 01/08/2013 701.9 UNSPECIFIED HYPERTROPHIC AND ATROPHIC CONDITIONS OF SKIN 01/08/2013 ALEX YOUNG DOA K 701.9 UNSPECIFIED HYPERTROPHIC AND ATROPHIC CONDITIONS OF SKIN 01/08/2013 ALEX YOUNG DOA K 701.9 UNSPECIFIED HYPERTROPHIC AND ATROPHIC CONDITIONS OF SKIN 01/08/2013 ALLISON CELESTE APRN 701.9 UNSPECIFIED HYPERTROPHIC AND ATROPHIC CONDITIONS OF SKIN 01/08/2013 YOUNG DODECLAN K 701.9 UNSPECIFIED HYPERTROPHIC AND ATROPHIC CONDITIONS OF SKIN 01/08/2013 YOUNG DECLAN VASQUEZ K 701.9 UNSPECIFIED HYPERTROPHIC AND ATROPHIC CONDITIONS OF SKIN 01/08/2013 ALILSON CELESTE APRN R 701.9 UNSPECIFIED HYPERTROPHIC AND ATROPHIC CONDITIONS OF SKIN 01/08/2013 JAZLYN LCMF, LOUISA W 701.9 UNSPECIFIED HYPERTROPHIC AND ATROPHIC CONDITIONS OF SKIN 01/08/2013 JAZLYN LCMF, LOUISA W 701.9 UNSPECIFIED HYPERTROPHIC AND ATROPHIC CONDITIONS OF SKIN 10/05/2013 YOUNG DECLAN VASQUEZ K 783.1 WEIGHT GAIN ABNORMAL 10/05/2013 ALLISON CELESTE APRN R 783.1 WEIGHT GAIN ABNORMAL 10/05/2013 JAZLYN LCMF, LOUISA W 783.1 WEIGHT GAIN ABNORMAL 10/05/2013 JAZLYN LCMF, LOUISA W 783.1 WEIGHT GAIN ABNORMAL 01/04/2014 JAZLYN LCMF, LOUISA W 296.32 MO DEPRESSIVE RECURRENT MODERATE 01/04/2014 JAZLYN LCMF, LOUISA W 919.4 INSECT BITE NONVENOMOUS OF OTHER MULTIPLE AND UNSPECIFIED SITES WITHOUT INFECTION 01/04/2014 JAZLYN LCMF, LOUISA W 296.32 MO DEPRESSIVE RECURRENT MODERATE 01/04/2014 JAZLYN LCMF, LOUISA W 919.4 INSECT BITE NONVENOMOUS OF OTHER MULTIPLE AND UNSPECIFIED SITES WITHOUT INFECTION 01/11/2014 JAZLYN LCMF, LOUISA W 296.31 MO DEPRESSIVE RECURRENT MILD 09/27/2016 DEGRAFFENREID-SR, SANDOVAL L Ot Z12.31 ENCNTR SCREEN MAMMOGRAM FOR MALIGNANT NE 09/27/2016 DEGRAFFENREID-SR, SANDOVAL L Ot Z80.3 FAMILY HISTORY OF MALIGNANT NEOPLASM OF 09/27/2016 DEGRAFFENREID-SR, SANDOVAL L Ot Z12.31 ENCNTR SCREEN MAMMOGRAM FOR MALIGNANT NE 09/27/2016 DEGRAFFENREID-SR, SANDOVAL L Ot Z80.3 FAMILY HISTORY OF MALIGNANT NEOPLASM OF 09/27/2016 DEGRAFFENREID-SR, SANDOVAL L Ot Z12.31 ENCNTR SCREEN MAMMOGRAM FOR MALIGNANT NE 09/27/2016 DEGRAFFENREID-SR, SANDOVAL L Ot Z80.3 FAMILY HISTORY OF MALIGNANT NEOPLASM OF 10/02/2016 DEGRAFFENREID-SR, SANDOVAL L Ot Z12.31 ENCNTR SCREEN MAMMOGRAM FOR MALIGNANT NE 10/02/2016 DEGRAFFENREID-SR, SANDOVAL L Ot Z80.3 FAMILY HISTORY OF MALIGNANT NEOPLASM OF 10/03/2016 DEGRAFFENREID-SR, SANDOVAL L Ot N92.0 EXCESSIVE AND FREQUENT MENSTRUATION WITH 10/04/2016 DEGRAFFENREID-SR, SANDOVAL L Ot Z12.31 ENCNTR SCREEN MAMMOGRAM FOR MALIGNANT NE 10/04/2016 DEGRAFFENREID-SR, SANDOVAL L Ot Z80.3 FAMILY HISTORY OF MALIGNANT NEOPLASM OF 10/04/2016 DEGRAFFENREID-SR, SANDOVAL L Ot N92.0 EXCESSIVE AND FREQUENT MENSTRUATION WITH 10/05/2016 DEGRAFFENREID-SR, SANDOVAL L Ot Z12.31 ENCNTR SCREEN MAMMOGRAM FOR MALIGNANT NE 10/05/2016 DEGRAFFENREID-SR, SANDOVAL L Ot Z80.3 FAMILY HISTORY OF MALIGNANT NEOPLASM OF 10/05/2016 DEGRAFFENREID-SR, SANDOVAL L Ot Z12.31 ENCNTR SCREEN MAMMOGRAM FOR MALIGNANT NE 10/05/2016 DEGRAFFENREID-SR, SANDOVAL L Ot Z80.3 FAMILY HISTORY OF MALIGNANT NEOPLASM OF 10/05/2016 DEGRAFFENREID-SR, SANDOVAL L Ot N92.0 EXCESSIVE AND FREQUENT MENSTRUATION WITH 10/05/2016 DEGRAFFENREID-SR, SANDOVAL L Ot Z12.31 ENCNTR SCREEN MAMMOGRAM FOR MALIGNANT NE 10/05/2016 DEGRAFFENREID-SR, SANDOVAL L Ot Z80.3 FAMILY HISTORY OF MALIGNANT NEOPLASM OF 10/05/2016 DEGRAFFENREID-SR, SANDOVAL L Ot N92.0 EXCESSIVE AND FREQUENT MENSTRUATION WITH 10/06/2016 DEGRAFFENREID-SR, SANDOVAL L Ot Z12.31 ENCNTR SCREEN MAMMOGRAM FOR MALIGNANT NE 10/06/2016 DEGRAFFENREID-SR, SANDOVAL L Ot Z80.3 FAMILY HISTORY OF MALIGNANT NEOPLASM OF 10/08/2016 DEGRAFFENREID-SR, SANDOVAL L Ot N92.0 EXCESSIVE AND FREQUENT MENSTRUATION WITH 10/15/2016 DEGRAFFENREID-SR, SANDOVAL L Ot Z12.31 ENCNTR SCREEN MAMMOGRAM FOR MALIGNANT NE 10/15/2016 DEGRAFFENREID-SR, SANDOVAL L Ot Z80.3 FAMILY HISTORY OF MALIGNANT NEOPLASM OF 10/15/2016 DEGRAFFENREID-SR, SANDOVAL L Ot N92.0 EXCESSIVE AND FREQUENT MENSTRUATION WITH 10/26/2016 DEGRAFFENREID-SR, SANDOVAL L Ot Z12.31 ENCNTR SCREEN MAMMOGRAM FOR MALIGNANT NE 10/26/2016 DEGRAFFENREID-SR, SANDOVAL L Ot Z80.3 FAMILY HISTORY OF MALIGNANT NEOPLASM OF 10/26/2016 DEGRAFFENREID-SR, SANDOVAL L Ot N92.0 EXCESSIVE AND FREQUENT MENSTRUATION WITH 01/30/2017 KAEL MUÑOZ DO Ot L03.116 CELLULITIS OF LEFT LOWER LIMB 01/30/2017 KAEL MUÑOZ DO Ot L98.8 OTH DISRD OF THE SKIN AND SUBCUTANEOUS T 01/30/2017 KAEL MUÑOZ DO Ot Z86.19 PERSONAL HISTORY OF OTHER INFECTIOUS AND 01/30/2017 KAEL MUÑOZ DO Ot Z90.89 ACQUIRED ABSENCE OF OTHER ORGANS 01/30/2017 KAEL MUÑOZ DO Ot Z98.51 TUBAL LIGATION STATUS 01/30/2017 DEGRAFFENREID-SR, SANDOVAL L Ot Z12.31 ENCNTR SCREEN MAMMOGRAM FOR MALIGNANT NE 01/30/2017 DEGRAFFENREID-SR, SANDOVAL L Ot Z80.3 FAMILY HISTORY OF MALIGNANT NEOPLASM OF 01/30/2017 DEGRAFFENREID-SR, SANDOVAL L Ot N92.0 EXCESSIVE AND FREQUENT MENSTRUATION WITH 04/24/2017 NEEL IRWIN MD Ot F17.200 NICOTINE DEPENDENCE, UNSPECIFIED, UNCOMP 04/24/2017 NEEL IRWIN MD Ot M25.531 PAIN IN RIGHT WRIST 04/24/2017 NEEL IRWIN MD Ot S66.911A STRAIN OF [facility] MUSC/FASC/TEND AT S/D 04/24/2017 NEEL IRWIN MD Ot X50.0XXA OVEREXERTION FROM STRENUOUS MOVEMENT OR 04/24/2017 NEEL IRWIN MD Ot Z87.39 PERSONAL HISTORY OF DISEASES OF THE MS S 04/24/2017 NEEL IRWIN MD Ot Z90.89 ACQUIRED ABSENCE OF OTHER ORGANS 04/24/2017 NEEL IRWIN MD Ot Z98.51 TUBAL LIGATION STATUS 04/26/2017 NEEL IRWIN MD Ot F17.200 NICOTINE DEPENDENCE, UNSPECIFIED, UNCOMP 04/26/2017 NEEL IRWIN MD Ot M25.531 PAIN IN RIGHT WRIST 04/26/2017 NEEL IRWIN MD Ot S66.911A STRAIN OF [facility]C/FASC/TEND AT [facility]/D 04/26/2017 NEEL IRWIN MD Ot X50.0XXA OVEREXERTION FROM STRENUOUS MOVEMENT OR 04/26/2017 NEEL IRWIN MD Ot Z87.39 PERSONAL HISTORY OF DISEASES OF THE MS S 04/26/2017 NEEL IRWIN MD Ot Z90.89 ACQUIRED ABSENCE OF OTHER ORGANS 04/26/2017 NEEL IRWIN MD Ot Z98.51 TUBAL LIGATION STATUS 06/14/2017 SANDOVAL PATE Ot Z12.31 ENCNTR SCREEN MAMMOGRAM FOR MALIGNANT NE 06/14/2017 SANDOVAL PATE Ot Z80.3 FAMILY HISTORY OF MALIGNANT NEOPLASM OF 06/14/2017 SANDOVAL PATE Ot N92.0 EXCESSIVE AND FREQUENT MENSTRUATION WITH 06/14/2017 NEEL IRWIN MD Ot F17.210 NICOTINE DEPENDENCE, CIGARETTES, UNCOMPL 06/14/2017 NEEL IRWIN MD Ot K04.7 PERIAPICAL ABSCESS WITHOUT SINUS 06/14/2017 NEEL IRWIN MD Ot R68.84 JAW PAIN 06/14/2017 NEEL IRWIN MD Ot Z86.14 PERSONAL HISTORY OF METHICILLIN RESIS ST 06/14/2017 NEEL IRWIN MD Ot Z90.89 ACQUIRED ABSENCE OF OTHER ORGANS 06/14/2017 NEEL IRWIN MD Ot Z98.51 TUBAL LIGATION STATUS 06/14/2017 DEGRAFFENREID-SANDOVAL SR L Ot Z12.31 ENCNTR SCREEN MAMMOGRAM FOR MALIGNANT NE 06/14/2017 RAYMONFFESANDOVAL VALENZUELA Ot Z80.3 FAMILY HISTORY OF MALIGNANT NEOPLASM OF 06/14/2017 RAYMONFFENRSAVANNAH-SANDOVAL SR Ot N92.0 EXCESSIVE AND FREQUENT MENSTRUATION WITH 06/17/2017 NEEL IRWIN MD Ot F17.210 NICOTINE DEPENDENCE, CIGARETTES, UNCOMPL 06/17/2017 NEEL IRWIN MD Ot K04.7 PERIAPICAL ABSCESS WITHOUT SINUS 06/17/2017 NEEL IRWIN MD Ot R68.84 JAW PAIN 06/17/2017 NEEL IRWIN MD Ot Z86.14 PERSONAL HISTORY OF METHICILLIN RESIS ST 06/17/2017 NEEL IRWIN MD Ot Z90.89 ACQUIRED ABSENCE OF OTHER ORGANS 06/17/2017 NEEL IRWIN MD Ot Z98.51 TUBAL LIGATION STATUS 06/20/2017 NEEL IRWIN MD Ot F17.210 NICOTINE DEPENDENCE, CIGARETTES, UNCOMPL 06/20/2017 NEEL IRWIN MD Ot K04.7 PERIAPICAL ABSCESS WITHOUT SINUS 06/20/2017 NEEL IRWIN MD Ot R68.84 JAW PAIN 06/20/2017 NEEL IRWIN MD Ot Z86.14 PERSONAL HISTORY OF METHICILLIN RESIS ST 06/20/2017 NEEL IRWIN MD Ot Z90.89 ACQUIRED ABSENCE OF OTHER ORGANS 06/20/2017 NEEL IRWIN MD Ot Z98.51 TUBAL LIGATION STATUS 11/20/2017 SANDOVAL PTAE Ot Z12.31 ENCNTR SCREEN MAMMOGRAM FOR MALIGNANT NE 11/20/2017 SANDOVAL PATE Ot Z80.3 FAMILY HISTORY OF MALIGNANT NEOPLASM OF 11/20/2017 RAYMONFFEBRADLEYEID-SANDOVAL SR L Ot N92.0 EXCESSIVE AND FREQUENT MENSTRUATION WITH 11/21/2017 ALLISON SMITH MD Ot M67.911 UNSPECIFIED DISORDER OF SYNOVIUM AND TEN 11/25/2017 ALLISON SMITH MD Ot M67.911 UNSPECIFIED DISORDER OF SYNOVIUM AND TEN 12/03/2017 SARAH ALCARAZ, ALLISON Ot M67.911 UNSPECIFIED DISORDER OF SYNOVIUM AND TEN 12/18/2017 ROULA ALLISON Hood CFROBB Ot M25.511 PAIN IN RIGHT SHOULDER 12/31/2017 ROULA, ALLISON Erwin CFNP Ot M25.511 PAIN IN RIGHT SHOULDER 01/06/2018 ROULA, ALLISON R CFNP Ot M25.511 PAIN IN RIGHT SHOULDER 01/06/2018 CELESTE, ALLISON Hood CFNP Ot M25.511 PAIN IN RIGHT SHOULDER 01/23/2018 CELESTE, ALLISON Hood CFNP Ot M25.511 PAIN IN RIGHT SHOULDER 03/12/2018 FAN ALCARAZ, MARIELLE Jose Ot F17.210 NICOTINE DEPENDENCE, CIGARETTES, UNCOMPL 03/12/2018 MARIELLE CHAVIRA MD Ot K02.9 DENTAL CARIES, UNSPECIFIED 03/12/2018 MARIELLE CHAVIRA MD Ot K05.10 CHRONIC GINGIVITIS, PLAQUE INDUCED 03/12/2018 MARIELLE CHAVIRA MD Ot R68.84 JAW PAIN 03/12/2018 MARIELLE CHAVIRA MD Ot Z86.14 PERSONAL HISTORY OF METHICILLIN RESIS ST 03/12/2018 FAN ALCARAZ, MARIELLE Jose Ot Z88.0 ALLERGY STATUS TO PENICILLIN 03/12/2018 MARIELLE CHAVIRA MD Ot Z88.2 ALLERGY STATUS TO SULFONAMIDES STATUS 03/12/2018 MARIELLE CHAVIRA MD Ot Z88.8 ALLERGY STATUS TO OTH DRUG/MEDS/BIOL SUB 03/12/2018 MARIELLE CHAVIRA MD Ot Z90.89 ACQUIRED ABSENCE OF OTHER ORGANS 03/12/2018 MARIELLE CHAVIRA MD Ot Z98.51 TUBAL LIGATION STATUS 03/14/2018 MARIELLE CHAVIRA MD Ot F17.210 NICOTINE DEPENDENCE, CIGARETTES, UNCOMPL 03/14/2018 MARIELLE CHAVIRA MD Ot K02.9 DENTAL CARIES, UNSPECIFIED 03/14/2018 MARIELLE CHAVIRA MD Ot K05.10 CHRONIC GINGIVITIS, PLAQUE INDUCED 03/14/2018 MARIELLE CHAVIRA MD Ot R68.84 JAW PAIN 03/14/2018 MARIELLE CHAVIRA MD Ot Z86.14 PERSONAL HISTORY OF METHICILLIN RESIS ST 03/14/2018 MARIELLE CHAVIRA MD Ot Z88.0 ALLERGY STATUS TO PENICILLIN 03/14/2018 MARIELLE CHAVIRA MD Ot Z88.2 ALLERGY STATUS TO SULFONAMIDES STATUS 03/14/2018 MARIELLE CHAVIRA MD Ot Z88.8 ALLERGY STATUS TO OTH DRUG/MEDS/BIOL SUB 03/14/2018 MARIELLE CHAVIRA MD Ot Z90.89 ACQUIRED ABSENCE OF OTHER ORGANS 03/14/2018 MARIELLE CHAVIRA MD Ot Z98.51 TUBAL LIGATION STATUS 03/19/2018 MARIELLE CHAVIRA MD Ot F17.210 NICOTINE DEPENDENCE, CIGARETTES, UNCOMPL 03/19/2018 MARIELLE CHAVIRA MD Ot K02.9 DENTAL CARIES, UNSPECIFIED 03/19/2018 MARIELLE CHAVIRA MD Ot K05.10 CHRONIC GINGIVITIS, PLAQUE INDUCED 03/19/2018 MARIELLE CHAVIRA MD Ot R68.84 JAW PAIN 03/19/2018 MARIELLE CHAVIRA MD Ot Z86.14 PERSONAL HISTORY OF METHICILLIN RESIS ST 03/19/2018 MARIELLE CHAVIRA MD Ot Z88.0 ALLERGY STATUS TO PENICILLIN 03/19/2018 MARIELLE CHAVIRA MD Ot Z88.2 ALLERGY STATUS TO SULFONAMIDES STATUS 03/19/2018 MARIELLE CHAVIRA MD Ot Z88.8 ALLERGY STATUS TO OTH DRUG/MEDS/BIOL SUB 03/19/2018 MARIELLE CHAVIRA MD Ot Z90.89 ACQUIRED ABSENCE OF OTHER ORGANS 03/19/2018 MARIELLE CHAVIRA MD Ot Z98.51 TUBAL LIGATION STATUS Procedures Code [place] [address] CULTURE WOUND (AEROBIC) 09/17/2012 30759 ROUTINE VENIPUNCTURE 10/05/2013 57744 TSH 10/05/2013 87967 PSYCH DIAGNOSTIC EVALUATION 01/04/2014 43117 PSYTX PT&/FAMILY 45 MINUTES 01/11/2014 Results Test Result Range CULTURE, ANAEROBIC AND AEROBIC - 03/19/17 12:37 CULTURE, ANAEROBIC BACTERIA W/GRAM STAIN SEE NOTE NRG CULTURE, AEROBIC BACTERIA SEE NOTE NRG Encounters ACCT No. Visit Date/Time Discharge Status Pt. Type Provider Facility Loc./Unit Complaint [id number] 01/11/2014 10:41:00 01/11/2014 23:59:59 CLS Outpatient LOUISA BLAND [id number] 01/04/2014 10:35:00 01/04/2014 23:59:59 CLS Outpatient LOUISA BLAND [id number] 12/16/2013 15:03:00 12/16/2013 23:59:59 CLS Outpatient ALLISON CELESTE APRN [id number] 10/05/2013 10:14:00 10/05/2013 23:59:59 CLS Outpatient DECLAN YOUNG DO [id number] 08/06/2013 14:25:00 08/06/2013 23:59:59 CLS Outpatient DECLAN YOUNG DO [id number] 07/01/2013 13:21:00 07/01/2013 23:59:59 CLS Outpatient ALLISON CELESTE APRN [id number] 05/25/2013 17:00:00 05/25/2013 23:59:59 CLS Outpatient DECLAN YOUNG DO [id number] 04/21/2013 10:17:00 04/21/2013 23:59:59 CLS Outpatient DECLAN YOUNG DO [id number] 10/02/2012 13:16:00 10/02/2012 23:59:59 CLS Outpatient ALLISON CELESTE APRN [id number] 09/18/2012 15:25:00 09/18/2012 23:59:59 CLS Outpatient ALLISON CELESTE APRN [id number] 09/01/2012 16:59:00 09/01/2012 23:59:59 CLS Outpatient [id number] 08/22/2012 10:21:00 08/22/2012 23:59:59 CLS Outpatient [id number] 08/04/2012 18:15:00 08/04/2012 23:59:59 CLS Outpatient [id number] 07/16/2012 16:00:00 07/16/2012 23:59:59 CLS Outpatient [id number] 06/13/2012 10:42:00 06/13/2012 23:59:59 CLS Outpatient ALLISON CELESTE APRN [id number] 05/14/2012 10:28:00 05/14/2012 23:59:59 CLS Outpatient ROULA ALLISON WEEKS [id number] 01/08/2013 14:30:00 Document Registration [id number] 11/11/2012 09:18:00 Document Registration [id number] 01/31/2018 09:20:00 01/31/2018 23:59:59 CLS Outpatient ROULA THAKURALLISON Arndt [facility] [id number] 03/19/2017 11:40:00 Document Registration [id number] 03/12/2018 09:06:00 03/12/2018 09:55:00 DIS Outpatient FAN ALCARAZ, MARIELLE Jose [facility] ER DENTAL ISSUES [id number] 01/20/2018 08:14:00 02/07/2018 09:11:00 DIS Outpatient ALLISON CELESTE CFNP [facility] REHAB R SHOULDER PAIN [id number] 11/20/2017 17:28:00 11/20/2017 23:59:59 CLS Outpatient ALLISON SMITH MD [facility] RAD DISORDER OF RIGHT ROTATOR CUFF [id number] 06/14/2017 15:29:00 06/14/2017 16:52:00 DIS Emergency NEEL IRWIN MD [facility] ER L SIDE LOWER JAW PAIN [id number] 04/24/2017 08:19:00 04/24/2017 09:38:00 DIS Emergency NEEL IRWIN MD [facility] ER RT WRIST INJ [id number] 01/30/2017 07:13:00 01/30/2017 08:06:00 DIS Emergency KAEL MUÑOZ DO [facility] ER SPIDER BITE [id number] 10/02/2016 14:19:00 10/02/2016 23:59:59 CLS Outpatient SANDOVAL PATE [facility] RAD N92.0 [id number] 09/26/2016 09:31:00 09/26/2016 23:59:59 CLS Outpatient SANDOVAL PATE [facility] RAD SCREENING, FAMILY HX [id number] 01/30/2017 07:37:00 Document Registration [id number] 03/04/2010 11:18:00 Document Registration
--- NOTE | 2018-04-01 16:07 | ED EENT ---
History of Present Illness General Chief Complaint: Dental Problems/Pain Stated Complaint: ABCESS TOOTH LOWER JAW L SIDE Source: patient Exam Limitations: no limitations History of Present Illness Date Seen by Provider: Apr 01, 2018 Time Seen by Provider: 16:04 Initial Comments Patient is a 37-year-old female who presents to the emergency room with complaints of left upper jaw pain and a dental abscess. She reports that she's had dental caries in the past and has an appointment with [place] [facility] that was set up by [facility] in 4 weeks to have the tooth extracted. Denies fevers, drainage. Timing/Duration: other (ongoing) Location: dental Associated Symptoms: tooth pain Allergies and Home Medications Allergies Coded Allergies: sulfamethoxazole (Verified Allergy, Mild, 01/30/17) trimethoprim (Verified Allergy, Mild, 01/30/17) Uncoded Allergies: PENICILLIN (Adverse Reaction, Unknown, 01/30/17) Home Medications Cephalexin 500 Mg Tablet, 500 MG PO 3 times a day Prescribed by: NEEL IRWIN on 06/14/17 1627 Clindamycin HCl 300 Mg Capsule, 300 MG PO QID Prescribed by: MARIELLE HERNANDEZ on 03/12/18 0939 Clindamycin HCl 300 Mg Capsule, 300 MG PO QID Prescribed by: MOISES YAN on 04/01/18 1615 Patient Home Medication List Home Medication List Reviewed: Yes Review of Systems Review of Systems Constitutional: see HPI; No chills, No fever Mouth: see HPI, pain, swelling All Other Systems Reviewed Negative Unless Noted: Yes Past Tqloxow-Lqkrpo-Tdydww Hx Past Med/Social Hx: Reviewed Nursing Past Med/Soc Hx Patient Social History Type Used: Electronic/Vapor 2nd Hand Smoke Exposure: Yes Recent Foreign Travel: No Contact w/Someone Who Travel: No Recent Hopitalizations: Yes (pregnancies x6) Immunizations Up To Date Tetanus Booster (TDap): Less than 5yrs Date of Influenza Vaccine: May 24, 2017 Seasonal Allergies Seasonal Allergies: No Past Medical History Surgeries: Yes Tonsillectomy, Tubal Ligation Respiratory: No Cardiac: No Neurological: No Reproductive Disorders: No NUTRITIONAL SERVICES HOST History: Tubal Ligation Genitourinary: No Gastrointestinal: No Musculoskeletal: No Endocrine: No HEENT: Yes (Dental decay) Cancer: No Psychosocial: No Integumentary: Yes (MRSA) Blood Disorders: No Family Medical History Reviewed Nursing Family Hx Physical Exam Vital Signs Vital Signs - First Documented 04/01/18 15:54 Temp 98.3 Pulse 80 Resp 16 B/P (MAP) 174/110 (131) Pulse Ox 99 O2 Delivery Room Air Height, Weight, BMI Height: 5'1.00" Weight: 180lbs. 0oz. 81.324310rs; BMI Method:Stated General Appearance: WD/WN, no apparent distress Mouth/Throat: pharynx normal, dental tenderness (and swelling to the left jaw as noted in images.) Cardiovascular: normal peripheral pulses, regular rate, rhythm, no edema, no gallop, no JVD, no murmur Respiratory: chest non-tender, lungs clear, normal breath sounds, no respiratory distress, no accessory muscle use Neurologic/Psychiatric: alert, normal mood/affect, oriented x 3 Skin: normal color, warm/dry Departure Impression Primary Impression: Abscessed tooth Disposition: 01 HOME, SELF-CARE Condition: Stable/Unchanged Departure-Patient Inst. Decision time for Depature: 16:09 Referrals: ALLISON CELESTE (PCP) Primary Care Physician [facility] (Family) Primary Care Physician Patient Instructions: Tooth Abscess (DC) Add. Discharge Instructions: Take medication as directed. Follow up with [facility] for a recheck within 1 week. Return back to the emergency room for any worsening symptoms or concerns as needed. All discharge instructions reviewed with patient and/or family. Voiced understanding. Scripts Clindamycin HCl (Clindamycin HCl) 300 Mg Capsule 300 MG PO QID for 10 Days, #40 CAP Prov: MOISES YAN 04/01/18 Images Mouth/Nose 1 - Caries, Swelling, Tenderness MOISES YAN Apr 01, 2018 16:07
[2018-04-01] MEDS ORDERED: CLIN300C11 PO (16:15)
[2018-04-01] MEDS ORDERED: HYDROcodone/APAP 5 MG/325 MG (LORTAB) TAB PO ONE (16:15)
[2018-04-01 17:27] VITALS: BP 156/74
== END 2018-04-01 17:27 | disposition home or self-care (01) ==
LOC: EDUNIT# 15:22 → ER 15:23
DX: K04.7 Periapical abscess without sinus (principal); Z77.22 Contact with and (suspected) exposure to environmental tobacco smoke (acute) (chronic); Z88.2 Allergy status to sulfonamides; Z88.0 Allergy status to penicillin; Z88.8 Allergy status to other drugs, medicaments and biological substances; Z98.51 Tubal ligation status; Z90.89 Acquired absence of other organs; Z86.14 Personal history of Methicillin resistant Staphylococcus aureus infection
CPT/HCPCS: 99283

== ENCOUNTER 2019-04-11 09:23 | Emergency (ER) | payer MEDICAID ==
[~2019-04-11] VITALS: Ht 154.9 cm; Wt 78.6 kg
[2019-04-11] MEDS ORDERED: LACTATED RINGERS 1,000 ML IV ONE (10:00)
[2019-04-11] MEDS ORDERED: KETOROLAC 30 MG/ML VIAL IVP STA (10:06)
[2019-04-11 10:11] LABS: BASOPHILS % (AUTO) 1 % (0-10); EOSINOPHILS # (AUTO) 0.1 10^3/uL (0.0-0.3); EOSINOPHILS % (AUTO) 2 % (0-10); HEMATOCRIT 47 % (35-52); HEMOGLOBIN 15.3 G/DL (11.5-16.0); LYMPHOCYTES # (AUTO) 1.7 X 10^3 (1.0-4.0); LYMPHOCYTES % (AUTO) 24 % (12-44); MEAN CORPUSCULAR HEMOGLOBIN 29 PG (25-34); MEAN CORPUSCULAR HGB CONC 33 G/DL (32-36); MEAN CORPUSCULAR VOLUME 89 FL (80-99); MEAN PLATELET VOLUME 9.4 FL (7.4-10.4); MONOCYTES # (AUTO) 0.7 X 10^3 (0.0-1.0); MONOCYTES % (AUTO) 9 % (0-12); NEUTROPHILS # (AUTO) 4.6 X 10^3 (1.8-7.8); NEUTROPHILS % (AUTO) 64 % (42-75); PLATELET COUNT 397 10^3/uL (130-400); RED CELL DISTRIBUTION WIDTH 13.7 % (10.0-14.5); WHITE BLOOD COUNT 7.1 10^3/uL (4.3-11.0)
[2019-04-11 10:15] LABS: BILIRUBIN,URINE NEGATIVE (NEGATIVE); CLARITY,URINE CLEAR; COLOR,URINE YELLOW; GLUCOSE, URINE (UA) NEGATIVE (NEGATIVE); KETONES,URINE NEGATIVE (NEGATIVE); LEUKOCYTE ESTERASE ,URINE NEGATIVE (NEGATIVE); NITRITE,URINE NEGATIVE (NEGATIVE); PH,URINE 6 (5-9); PROTEIN,URINE NEGATIVE (NEGATIVE); UROBILINOGEN,URINE NORMAL (NORMAL)
[2019-04-11] MEDS ORDERED: amLODIPine 5 MG (NORVASC) TAB PO ONE (10:15)
--- NOTE | 2019-04-11 10:19 | ED Cardiac General ---
History of Present Illness General Chief Complaint: Cardiac/General Problems Stated Complaint: HIGH BLOOD PRESSURE 175/125 Nursing Triage Note: Ambulatory to 7 with c/o high blood pressure and headache for two weeks. Pt also c/o feeling, "dazed and slightly confused, dizziness and blurry vision." Pt reports seeing PCP on and being put on amlodipine and "something else". Pt denies chest pain, but feels tightness. Source: patient Exam Limitations: no limitations (MARIELLE MARTIN MED STUDENT) History of Present Illness Date Seen by Provider: Apr 11, 2019 Time Seen by Provider: 10:00 Initial Comments The patient is a wd/wn 38 y/o female who is here with a chief complaint of headache/high blood pressure. The patient has been experiencing the headache for the past two weeks. She states that she does have migraine headaches but "this is not a migraine". She states that she recently was diagnosed with high blood pressure and was started on amlodipine and chlorthalidone which she reports has had minimal effect. She describes the headache as a constant dull pain on the top of her head at 7/10. She reports that she previously had high blood pressure with but no episodes since. The patient also complains of feeling more tired,sleeping more, and decreased urination. She has been having some blurry vision with dizziness and nausea. She denies chest pain, palpitations, shortness of breath, or recent illness. Timing/Duration: 1 week (MARIELLE MARTIN MED STUDENT) Initial Comments Here with complaint of headache over the last couple weeks. States it's at the top of her head and constant aching. Recently started on new blood pressure medicines. Also has fairly significant poor dentition to the upper teeth. She knows she needs to get this taken care of at some point. Timing/Duration: other (2 weeks) Severity: mild Location: other (headache) Activities at Onset: none Prior CP/Workup: no prior chest pain Modifying Factors: improves with rest NTG SL MOUNTAIN SERVICES MANAGER: No ASA po MOUNTAIN SERVICES MANAGER: No Associated Systoms: No Cough, No Fever/Chills; Headaches; No Nausea/Vomiting, No Shortness of Air, No Weakness (DON NICHOLSON MD) Allergies and Home Medications Allergies Coded Allergies: sulfamethoxazole (Verified Allergy, Mild, 01/30/17) trimethoprim (Verified Allergy, Mild, 01/30/17) Uncoded Allergies: PENICILLIN (Adverse Reaction, Unknown, 01/30/17) Home Medications Cephalexin 500 Mg Tablet, 500 MG PO 3 times a day Prescribed by: NEEL IRWIN on 06/14/17 1627 Clindamycin HCl 300 Mg Capsule, 300 MG PO QID Prescribed by: MARIELLE HERNANDEZ on 03/12/18 0939 Clindamycin HCl 300 Mg Capsule, 300 MG PO QID Prescribed by: MOISES YAN on 04/01/18 1615 Patient Home Medication List Home Medication List Reviewed: Yes (DON NICHOLSON MD) Review of Systems Review of Systems Constitutional: No fever, No malaise EENTM: Blurred Vision; No Double Vision Respiratory: Denies Cough, Denies Shortness of Air Cardiovascular: Denies Chest Pain, Denies Palpitations Gastrointestinal: Denies Diarrhea; Nausea; Denies Vomiting (MARIELLE MARTIN STUDENT) Constitutional: see HPI EENTM: No Symptoms Reported Respiratory: No Symptoms Reported Cardiovascular: See HPI; Denies Irregular Heart Rate, Denies Lightheadedness Gastrointestinal: No Symptoms Reported Genitourinary: No Symptoms Reported (DON NICHOLSON MD) All Other Systems Reviewed Negative Unless Noted: Yes (DON NICHOLSON MD) Past Rvmfbjh-Qoxgkk-Kskikm Hx Past Med/Social Hx: Reviewed Nursing Past Med/Soc Hx (DON NICHOLSON MD) Patient Social History Type Used: Electronic/Vapor 2nd Hand Smoke Exposure: Yes Recent Foreign Travel: No Contact w/Someone Who Travel: No Recent Infectious Disease Expo: No Recent Hopitalizations: No Physical Abuse: No Sexual Abuse: No (MARIELLE MARTIN STUDENT) Smoking Status: Current Everyday Smoker (DON NICHOLSON MD) Immunizations Up To Date Tetanus Booster (TDap): Less than 5yrs Date of Influenza Vaccine: May 24, 2017 (MARIELLE MARTIN STUDENT) Seasonal Allergies Seasonal Allergies: No (MARIELLE MARTIN) Past Medical History Surgeries: Yes (R bicep tendon) Orthopedic, Tonsillectomy, Tubal Ligation Respiratory: No Cardiac: No Neurological: No Last Menstrual Period: Apr 09, 2019 Reproductive Disorders: No 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 Genitourinary: No Gastrointestinal: No Musculoskeletal: No Endocrine: No HEENT: Yes (Dental decay) Cancer: No Psychosocial: No Integumentary: Yes (MRSA) Blood Disorders: No (MARIELLE MARTIN [employer] STUDENT) Family Medical History Reviewed Nursing Family Hx (DON NICHOLSON MD) No Pertinent Family Hx (DON NICHOLSON MD) Physical Exam Vital Signs Vital Signs - First Documented 04/11/19 09:33 Temp 36.6 Pulse 105 Resp 19 B/P (MAP) 164/113 (130) Pulse Ox 98 O2 Delivery Room Air (DON NICHOLSON MD) Vital Signs Capillary Refill : Less Than 3 Seconds (MARIELLE MARTIN MED STUDENT) Height, Weight, BMI Height: 5'2.00" Weight: 180lbs. 0oz. 81.726152ax; 32.00 BMI Method:Stated General Appearance: No Apparent Distress, WD/WN HEENT: PERRL/EOMI; No Photophobia Respiratory: Chest Non Tender, Lungs Clear, Normal Breath Sounds Cardiovascular: Regular Rate, Rhythm, No Edema, No Murmur Neurologic/Psychiatric: Alert, Oriented x3, No Motor/Sensory Deficits Skin: Normal Color, Warm/Dry (MARIELLE MARTIN MED STUDENT) General Appearance: No Apparent Distress, WD/WN HEENT: PERRL/EOMI, TMs Normal, Pharynx Normal, Other (poor dentition especially along the entire upper jaw.) Neck: Full Range of Motion, Normal Inspection, Non Tender, Supple Respiratory: Lungs Clear, Normal Breath Sounds Cardiovascular: Regular Rate, Rhythm, No Murmur Gastrointestinal: Non Tender, Soft Neurologic/Psychiatric: Alert, Oriented x3 Skin: Normal Color, Warm/Dry (DON NICHOLSON MD) Progress/Results/Core Measures Results/Orders Lab Results Laboratory Tests Test 04/11/19 09:40 04/11/19 10:07 Range/Units White Blood Count 7.1 4.3-11.0 10^3/uL Red Blood Count 5.22 4.35-5.85 10^6/uL Hemoglobin 15.3 11.5-16.0 G/DL Hematocrit 47 35-52 % Mean Corpuscular Volume 89 80-99 FL Mean Corpuscular Hemoglobin 29 25-34 PG Mean Corpuscular Hemoglobin Concent 33 32-36 G/DL Red Cell Distribution Width 13.7 10.0-14.5 % Platelet Count 397 130-400 10^3/uL Mean Platelet Volume 9.4 7.4-10.4 FL Neutrophils (%) (Auto) 64 42-75 % Lymphocytes (%) (Auto) 24 12-44 % Monocytes (%) (Auto) 9 0-12 % Eosinophils (%) (Auto) 2 0-10 % Basophils (%) (Auto) 1 0-10 % Neutrophils # (Auto) 4.6 1.8-7.8 X 10^3 Lymphocytes # (Auto) 1.7 1.0-4.0 X 10^3 Monocytes # (Auto) 0.7 0.0-1.0 X 10^3 Eosinophils # (Auto) 0.1 0.0-0.3 10^3/uL Basophils # (Auto) 0.0 0.0-0.1 10^3/uL Sodium Level 135 135-145 MMOL/L Potassium Level 3.5 L 3.6-5.0 MMOL/L Chloride Level 98 98-107 MMOL/L Carbon Dioxide Level 27 21-32 MMOL/L Anion Gap 10 5-14 MMOL/L Blood Urea Nitrogen 12 7-18 MG/DL Creatinine 0.74 0.60-1.30 MG/DL Estimat Glomerular Filtration Rate > 60 BUN/Creatinine Ratio 16 Glucose Level 129 H 70-105 MG/DL Calcium Level 10.3 H 8.5-10.1 MG/DL Corrected Calcium 9.9 8.5-10.1 MG/DL Total Bilirubin 0.5 0.1-1.0 MG/DL Aspartate Amino Transf (AST/SGOT) 14 5-34 U/L Alanine Aminotransferase (ALT/SGPT) 15 0-55 U/L Alkaline Phosphatase 139 H 40-136 U/L C-Reactive Protein High Sensitivity 0.31 0.00-0.50 MG/DL Total Protein 8.2 6.4-8.2 GM/DL Albumin 4.5 3.2-4.5 GM/DL Thyroid Stimulating Hormone (TSH) 0.92 0.35-4.94 UIU/ML Urine Color YELLOW Urine Clarity CLEAR Urine pH 6 5-9 Urine Specific [place] 1.015 L 1.016-1.022 Urine Protein NEGATIVE NEGATIVE Urine Glucose (UA) NEGATIVE NEGATIVE Urine Ketones NEGATIVE NEGATIVE Urine Nitrite NEGATIVE NEGATIVE Urine Bilirubin NEGATIVE NEGATIVE Urine Urobilinogen NORMAL NORMAL MG/DL Urine Leukocyte Esterase NEGATIVE NEGATIVE Urine RBC (Auto) 5+ H NEGATIVE Urine RBC 25-50 H /HPF Urine WBC NONE /HPF Urine Squamous Epithelial Cells 2-5 /HPF Urine Crystals NONE /LPF Urine Bacteria NEGATIVE /HPF Urine Casts NONE /LPF Urine Mucus SMALL H /LPF Urine Culture Indicated NO (DON NICHOLSON MD) My Orders Orders - DON NICHOLSON MD Cbc With Automated Diff (04/11/19 10:00) Comprehensive Metabolic Panel (04/11/19 10:00) Hs C Reactive Protein (04/11/19 10:00) Thyroid Stimulating Hormone (04/11/19 10:00) Ua Culture If Indicated (04/11/19 10:00) Ekg Tracing (04/11/19 10:00) Chest 1 View, Ap/Pa Only (04/11/19 10:00) Ed Iv/Invasive Line Start (04/11/19 10:00) Lactated Ringers (Lr 1000 Ml Iv Solution (04/11/19 10:00) Ketorolac Injection (Toradol Injection) (04/11/19 10:06) Amlodipine Tablet (Norvasc Tablet) (04/11/19 10:15) Ct Head Wo (04/11/19 10:44) (DON NICHOLSON MD) Medications Given in ED Current Medications Medications Dose Ordered Sig/Suzanna Route Start Time Stop Time Status Last Admin Dose Admin Amlodipine Besylate 5 mg ONCE ONCE PO 04/11/19 10:15 04/11/19 10:16 DC 04/11/19 10:14 5 MG Lactated Ringer's 1,000 ml @ 0 mls/hr Q0M ONCE IV 04/11/19 10:00 04/11/19 10:03 DC 04/11/19 10:07 1,000 MLS/HR (DON NICHOLSON MD) Vital Signs/I&O 04/11/19 09:33 Temp 36.6 Pulse 105 Resp 19 B/P (MAP) 164/113 (130) Pulse Ox 98 O2 Delivery Room Air (DON NICHOLSON MD) Blood Pressure Mean: 130 Progress Progress Note : Time: 10:20 Progress Note The patient is resting comfortably in the exam room. She will be administer IV LR fluids and torodol for pain control. Amlodipine will be administer for BP control. Initial evaluation will consist of CBC, CMP, CRP, TSH, UA, and Chest radiograph. (MARIELLE MARTIN MED STUDENT) Progress Note : Progress Note I have seen and evaluated the patient and agree with above except as indicated. Have directed the plan of care. IV, labs, UA, chest x-ray, normal saline 1 L bolus and Toradol 30 mg IV. This did help with her pain. We will go ahead and get CT of the head as this was in the plan with her provider already. There is also concerned about renal artery stenosis due to hypertension and she has pending kidney ultrasound. Does have strong family history of hypertension. She was a 3 pack a day smoker but now she is down to half a pack a day. We will give amlodipine 5 mg by mouth and monitor blood pressure. 1142: Overall better. CT scan is negative for acute intracranial findings. Overall labs look fine. We will initiate clindamycin 4 times a day for 7 days for concerns related to dental issues. Patient needs an oral surgeon. Blood pressure is improved to 140s over 90s to 100. She will continue the amlodipine at 10 mg daily until she is se en by her provider, Gaetano Celeste, as scheduled. I will send a copy of the chart to the clinic. Discharged home with return precautions. Patient verbalize understanding of instructions and agreement with plan. (DON NICHOLSON MD) Initial ECG Impression Date: Apr 11, 2019 Initial ECG Impression Time: 09:47 Initial ECG Rate: 87 Comment Sinus rhythm with normal axis. Question biatrial abnormalities. No evidence of ST elevation ND. No previous available for comparison. Interpreted by me. (DON NICHOLSON MD) Diagnostic Imaging Diagonstic Imaging: CT Plain Films/CT/US/NM/MRI: head Comments [facility] [place] [place] NAME: [facility] REC#: [id number] PT STATUS: REG ER : 1980 PHYSICIAN: DON NICHOLSON MD ADMIT DATE: 04/11/19/ER Draft Date of Exam:04/11/19 CT HEAD WO PROCEDURE: CT head without contrast. TECHNIQUE: Multiple contiguous axial images were obtained through the brain without the use of intravenous contrast. Auto Exposure Controls were utilized during the CT exam to meet ALARA standards for radiation dose reduction. INDICATION: Headache and hypertension. FINDINGS: The ventricles and sulci are within normal limits. There is no hydrocephalus or cerebral edema. There is no midline shift or mass effect. There is no intracranial mass, hemorrhage, or extra-axial fluid collection. The visualized paranasal sinuses and mastoid air cells are clear. There are no regional areas of decreased attenuation appreciated to suggest an acute CVA. IMPRESSION: No acute intracranial abnormality. Dictated on workstation # [id number] Dict: 04/11/19 1105 Trans: 04/11/19 1108 [id number] Interpreted by: DANIELLA CABRERA MD Electronically signed by: [place] Imaging: Xray Plain Films/CT/US/NM/MRI: chest Comments NAME: NOA [facility] REC#: [id number] PT STATUS: REG ER : 1980 PHYSICIAN: DON NICHOLSON MD ADMIT DATE: 04/11/19/ER Signed Date of Exam: 04/11/19 CHEST 1 VIEW, AP/PA ONLY INDICATION: Chest tightness. Comparison is made with prior examination from 12/19/2007. FINDINGS: The heart size, mediastinal configuration, and pulmonary vascularity are within normal limits. There is no pleural effusion, pneumothorax, or pneumonia. The osseous structures are unremarkable. IMPRESSION: No acute cardiopulmonary abnormality. Dictated by: Dictated on workstation # [id number] Dict: 04/11/19 1026 Trans: 04/11/19 1057 Interpreted by: DANIELLA CABRERA MD Electronically signed by: DANIELLA CABRERA MD 04/11/19 1057 Reviewed: Reviewed by Me (DON NICHOLSON MD) Departure Impression Primary Impression: Hypertension, uncontrolled Additional Impression: Periodontal disease Disposition: 01 HOME, SELF-CARE Condition: Against Medical Advice Departure-Patient Inst. Decision time for Depature: 11:45 (DON NICHOLSON MD) Referrals: [facility] (PCP) Primary Care Physician GAETANO CELESTE (Family) Primary Care Physician Patient Instructions: High Blood Pressure (DC), Periodontal Disease Add. Discharge Instructions: All discharge instructions reviewed with patient and/or family. Voiced understanding. You should double your amlodipine to 10 mg daily. Follow-up with your doctor on as scheduled. Take antibiotics as directed. Call your insurance company to see if there is any state provider oral surgeon that you may see. Return for worse pain, fever, vomiting, weakness, breathing problems or other concerns as needed. You may take ibuprofen 600 mg every 8 hours as needed for pain. You may also take Tylenol/acetaminophen 1000 mg every 8 hours as needed for pain. Copy Copies To 1: DECLAN YOUNG JOSHUA K MED STUDENT Apr 11, 2019 10:19 DON NICHOLSON MD Apr 11, 2019 10:51
[2019-04-11 10:23] LABS: BACTERIA,URINE NEGATIVE /HPF; RBC,URINE 25-50 /HPF
[2019-04-11 10:26] LABS: ALANINE AMINOTRANSFERASE 15 U/L (0-55); ALBUMIN 4.5 GM/DL (3.2-4.5); ALKALINE PHOSPHATASE 139 U/L (40-136); BILIRUBIN,TOTAL 0.5 MG/DL (0.1-1.0); BUN/CREATININE RATIO 16; CALCIUM 10.3 MG/DL (8.5-10.1); CARBON DIOXIDE 27 MMOL/L (21-32); CHLORIDE 98 MMOL/L (98-107); CREATININE SERUM 0.74 MG/DL (0.60-1.30); GFR ESTIMATED > 60; GLUCOSE 129 MG/DL (70-105); POTASSIUM 3.5 MMOL/L (3.6-5.0); SODIUM 135 MMOL/L (135-145); TOTAL PROTEIN 8.2 GM/DL (6.4-8.2)
--- NOTE | 2019-04-11 10:38 | Diagnostic Imaging Report ---
INDICATION: Chest tightness. Comparison is made with prior examination from 12/19/2007. FINDINGS: The heart size, mediastinal configuration, and pulmonary vascularity are within normal limits. There is no pleural effusion, pneumothorax, or pneumonia. The osseous structures are unremarkable. IMPRESSION: No acute cardiopulmonary abnormality. Dictated by: Dictated on workstation # [id number]
--- NOTE | 2019-04-11 11:08 | Diagnostic Imaging Report ---
PROCEDURE: CT head without contrast. TECHNIQUE: Multiple contiguous axial images were obtained through the brain without the use of intravenous contrast. Auto Exposure Controls were utilized during the CT exam to meet ALARA standards for radiation dose reduction. INDICATION: Headache and hypertension. FINDINGS: The ventricles and sulci are within normal limits. There is no hydrocephalus or cerebral edema. There is no midline shift or mass effect. There is no intracranial mass, hemorrhage, or extra-axial fluid collection. The visualized paranasal sinuses and mastoid air cells are clear. There are no regional areas of decreased attenuation appreciated to suggest an acute CVA. IMPRESSION: No acute intracranial abnormality. Dictated by: Dictated on workstation # [id number]
[2019-04-11 11:51] VITALS: BP 131/82
[2019-04-11] MEDS ORDERED: CLIN300C11 PO (11:54)
== END 2019-04-11 11:51 | disposition home or self-care (01) ==
LOC: EDUNIT# 09:23 → ER 09:25
DX: I10 Essential (primary) hypertension (principal); K05.6 Periodontal disease, unspecified; G43.909 Migraine, unspecified, not intractable, without status migrainosus; F17.200 Nicotine dependence, unspecified, uncomplicated; Z90.89 Acquired absence of other organs; Z88.2 Allergy status to sulfonamides; Z88.0 Allergy status to penicillin; Z88.1 Allergy status to other antibiotic agents; Z98.51 Tubal ligation status
CPT/HCPCS: 36415; 70450; 71045; 80053; 81000; 84443; 85025; 86141; 93005; 96361; 96374

== ENCOUNTER → 2019-04-21 | Outpatient (CLI) | payer MEDICAID ==
--- NOTE | 2019-04-21 11:44 | Diagnostic Imaging Report ---
PROCEDURE: US DOPPLER ABD/COMPLETE TECHNIQUE: Multiple real-time grayscale images were obtained over the kidneys in various projections. Duplex evaluation of renal arteries was also attempted. INDICATION: Hypertension. COMPARISON: There are no prior studies available for comparison. FINDINGS: Both kidneys were identified. The right kidney measures 10.3 x 4.1 x 4.9 cm while the left kidney is estimated to be 11.1 x 4.4 x 4.0 cm. There is no evidence for a solid renal mass or for hydronephrosis of either kidney. The renal cortices are normal in thickness and echogenicity. Spectral and color flow imaging of the renal arteries was performed. The renal artery/aorta ratios are not elevated, and there is no evidence for a hemodynamically significant stenosis of either renal artery. The bladder was imaged during the course of the exam. The bladder is only partially filled and consequently not well evaluated. There is no obvious bladder abnormality evident. Neither ureteral jet was identified. IMPRESSION: 1. There is no evidence for a solid renal mass or for an acute abnormality of either kidney. 2. There is no sign of renal artery stenosis. 3. There is no obvious bladder abnormality evident. Dictated by: Dictated on workstation # [id number]
== END ==
LOC: RAD 07:42
PROVIDERS: ATTEND Nurse Practitioner Family
DX: I10 Essential (primary) hypertension (principal)
CPT/HCPCS: 93975

== ENCOUNTER 2020-04-26 11:30 | Outpatient (RCR) | payer MEDICAID ==
[~2020-04-26 11:30] MED LIST changes: -CLIN300C11 PO; +CLIN300C12 PO
== END 2020-07-25 | disposition home or self-care (01) ==
LOC: CARD 11:30
PROVIDERS: ATTEND Nurse Practitioner Family
DX: R00.2 Palpitations (principal)
CPT/HCPCS: 93225; 93226

== ENCOUNTER → 2020-08-24 | Outpatient (CLI) | payer MEDICAID | LOC: CARD 10:00 | PROVIDERS: ATTEND Internal Medicine Cardiovascular Disease | DX: I34.0 Nonrheumatic mitral (valve) insufficiency (principal); E78.5 Hyperlipidemia, unspecified | CPT/HCPCS: 93017; 93306 ==

== ENCOUNTER → 2020-09-28 | Outpatient (CLI) | payer MEDICAID ==
[~2020-09-28] VITALS: Ht 154 cm; Wt 80.0 kg
[~2020-09-28] MED LIST changes: +CATHETER FLUSH 10 ML SYR IV PRN; +REGADENOSON 0.4 MG/5 ML SYR (LEXISCAN) IV ONE
[2020-09-28 08:59] VITALS: BP 136/82
--- NOTE | 2020-09-28 11:22 | Cardiology Stress Test Report ---
Stress Test Report Date of Procedure/Referring: Date of Procedure: Sep 28, 2020 PCP Michelle Holly MD Admitting Physician Center/[facility] Indications: cp Baseline Heart Rate: 71 Baseline Blood Pressure: Blood Pressure Systolic: 136 Blood Pressure Diastolic: 82 Baseline Vitals Vital Signs Date Time Temp Pulse Resp B/P (MAP) Pulse Ox O2 Delivery O2 Flow Rate FiO2 09/28/20 08:59 77 18 136/82 (100) 99 Room Air Baseline EKG: Baseline EKG: NSR Summary After explaining the procedure to the patient, she signed a consent and then brought to the stress nuclear laboratory. Patient received 0.4 mg Lexiscan for stress test, ECG, heart rate and blood pressure were monitored continuously. Resting and stress dose of radio tracer were injected, imaging was acquired and reviewed in short axis, horizontal long axis and vertical long axis views. TID: 1.04 SSS: 5 SDS: 2 EF: 72 1. Patient tolerated Lexiscan well 2. Breast attenuation with mild decreased uptake involving the basal to mid anterior wall with mild reversibility 3. Normal left ventricular size, EF 72 percent MICHELLE HOLLY MD Sep 28, 2020 11:21
== END ==
LOC: CARD 08:15
PROVIDERS: ATTEND Internal Medicine Cardiovascular Disease
DX: R07.9 Chest pain, unspecified (principal)
CPT/HCPCS: 78452; 93017

== ENCOUNTER 2020-10-07 05:31 | Outpatient (RCR) | payer MEDICAID ==
[~2020-10-07] VITALS: Ht 156.2 cm; Wt 80.0 kg
[~2020-10-07 05:31] MED LIST changes: +AMLO-251 PO; +ATOR10TA66 PO; -CATHETER FLUSH 10 ML SYR IV PRN; +FURO80TA3 PO; +METO-333 PO; +PANT40TA2 PO; +POTA10TA36 PO; -REGADENOSON 0.4 MG/5 ML SYR (LEXISCAN) IV ONE
== END 2020-10-07 09:33 | disposition home or self-care (01) ==
LOC: PREOP 05:31
PROVIDERS: ATTEND Surgery
DX: Z01.812 Encounter for preprocedural laboratory examination (principal); R07.9 Chest pain, unspecified; Z20.822 Contact with and (suspected) exposure to COVID-19
CPT/HCPCS: 87635

== ENCOUNTER 2020-10-11 11:01 | Day surgery (SDC) | payer MEDICAID ==
[~2020-10-11] VITALS: Ht 156 cm; Wt 80.0 kg
[2020-10-11 11:05] VITALS: BP 113/80
[2020-10-11] MEDS ORDERED: LACTATED RINGERS 1,000 ML IV STA (11:19)
[2020-10-11] MEDS ORDERED: HURRICAINE EXT TUBE (BENZOCAINE) XX PRN (11:30)
[2020-10-11] MEDS ORDERED: HURRICAINE EXT TUBE (BENZOCAINE) ONE (12:05)
[2020-10-11] MEDS ORDERED: IBUP-1780 PO (12:13)
[2020-10-11] MEDS ORDERED: MIDAZOLAM 2 MG/2 ML (VERSED) VIAL ONE (12:14)
[2020-10-11] MEDS ORDERED: proPOfol 200 MG/20 ML (DIPRIVAN) VIAL IV ONE (12:14)
--- NOTE | 2020-10-11 12:37 | Progress Note-Pre Operative ---
Pre-Operative Progress Note H&P Reviewed The H&P was reviewed, patient examined and no changes noted. Date Seen by Provider: Oct 11, 2020 Time Seen by Provider: 12:37 Date H&P Reviewed: Oct 11, 2020 Time H&P Reviewed: 12:37 Pre-Operative Diagnosis: chest pain ZEO GORMAN DO Oct 11, 2020 12:37
--- NOTE | 2020-10-11 12:52 | Progress Note-Post Operative ---
Post-Operative Progess Note Surgeon (s)/Optical Mechanic (s) Surgeon ZOE GORMAN DO Optical Mechanic: None Pre-Operative Diagnosis chest pain Post-Operative Diagnosis hiatal hernia Procedure & Operative Findings Date of Procedure 10/11/20 Procedure Performed/Findings EGD with biopsies Anesthesia Type MDA Estimated Blood Loss Estimated blood loss (mL): none Specimens/Packing Specimens Removed biopsy of the antrum biopsy of the GE junction ZOE GORMAN DO Oct 11, 2020 12:52
--- NOTE | 2020-10-11 12:52 | Discharge Inst-Simple/Standard ---
Discharge Inst-Standard Patient Instructions/Follow Up Plan of Care/Instructions/FU: 2 weeks Ronald Activity as Tolerated: Yes Discharge Diet: Regular Diet ZOE GORMAN DO Oct 11, 2020 12:52
[2020-10-11 12:53] VITALS: BP 139/68
[2020-10-11 12:58] VITALS: BP 119/62
[2020-10-11 13:00] VITALS: BP 111/60
--- NOTE | 2020-10-11 13:02 | Anesthesia-General Post-Op ---
MAC Patient Condition Mental Status/LOC: Same as Preop Cardiovascular: Satisfactory Nausea/Vomiting: Absent Respiratory: Satisfactory Pain: Controlled Complications: Absent Post Op Complications Complications None Follow Up Care/Instructions Patient Instructions None needed. Anesthesiology Discharge Order Discharge Order Patient is doing well, no complaints, stable vital signs, no apparent adverse anesthesia problems. AZALEA MIGUEL DO Oct 11, 2020 13:02
[2020-10-11 13:30] VITALS: BP 119/76
[2020-10-11 13:35] VITALS: BP 119/76
--- NOTE | 2020-10-11 18:58 | OPERATIVE REPORT ---
DATE OF SERVICE: 10/11/2020 PREOPERATIVE DIAGNOSIS: Chest pain. POSTOPERATIVE DIAGNOSIS: Hiatal hernia. SURGEON: Zoe Cardenas DO PROCEDURE: EGD with biopsies. ANESTHESIA: Per MDA. ESTIMATED BLOOD LOSS: None. COMPLICATIONS: None. INDICATIONS: The patient is a 40-year-old female with chest pain, seen cardiology and thought it might be related to GERD and requested that EGD be performed. She understands risks and benefits of procedure and wished to proceed. Consent was signed in the chart. DESCRIPTION OF PROCEDURE: The patient was taken to the endoscopy suite, placed in left lateral recumbent position. Timeout was performed. Scope was inserted in mouth, down the esophagus, stomach and into the duodenum without difficulty. There were no polyps, masses or ulcerations within the duodenum. Scope was slowly retracted back into the stomach where it was further insufflated. No polyps, masses or ulcerations. Biopsy of the antrum was obtained. Scope was retroflexed noting a small hiatal hernia, no other pathology noted. Scope was returned to its normal position, slowly withdrawn to distal esophagus, which had no polyps, masses or ulcerations. Biopsy of the GE junction was obtained. Scope was slowly retracted back to completely remove, noting no other pathology. The patient tolerated procedure well without any complications. She was taken to recovery room in stable condition. RECOMMENDATIONS: The patient will follow up on pathology. Continue on current medications. We would consider working up gallbladder for further evaluation of her symptoms. Job ID: [id number] DocumentID: [id number] Dictated Date: 10/11/2020 12:55:21 Team Facilitator Date: 10/11/2020 18:55:21 Dictated By: ZOE CARDENAS DO
[2020-10-12] MEDS ORDERED: METO-333 PO ×2 (07:20)
== END 2020-10-11 13:35 | disposition home or self-care (01) ==
LOC: ENDO 11:01
PROVIDERS: ATTEND Surgery
DX: K20.90 Esophagitis, unspecified without bleeding (principal); K44.9 Diaphragmatic hernia without obstruction or gangrene; I10 Essential (primary) hypertension; K21.9 Gastro-esophageal reflux disease without esophagitis; E78.2 Mixed hyperlipidemia; M99.02 Segmental and somatic dysfunction of thoracic region; I49.8 Other specified cardiac arrhythmias; F17.210 Nicotine dependence, cigarettes, uncomplicated; Z79.899 Other long term (current) drug therapy; Z88.0 Allergy status to penicillin; Z88.2 Allergy status to sulfonamides; Z88.1 Allergy status to other antibiotic agents
CPT/HCPCS: 84703; 88305

== ENCOUNTER 2020-10-12 08:00 | Day surgery (SDC) | payer MEDICAID ==
[2020-10-12] VITALS (9 sets, daily range): BP systolic 114–143; BP diastolic 67–83
[~2020-10-12] VITALS: Ht 155 cm; Wt 82.0 kg
[2020-10-12 07:22] LABS: HEMOGLOBIN 13.5 g/dL (11.5-16.0); MEAN PLATELET VOLUME 9.2 fL (9.0-12.2); WHITE BLOOD COUNT 8.4 10^3/uL (4.3-11.0)
[2020-10-12 07:37] LABS: INR 0.9 (0.8-1.4); PROTHROMBIN TIME PATIENT 12.5 SEC (12.2-14.7)
--- NOTE | 2020-10-12 07:42 | Diagnostic Imaging Report ---
INDICATION: Coronary artery disease. COMPARISON: 04/11/2019. FINDINGS: Single view of the chest demonstrates minimal cardiac enlargement with slight central vascular congestion. There is no pneumothorax or effusion. Osseous structures are stable. IMPRESSION: Cardiac enlargement with slight central vascular congestion. Dictated by: Dictated on workstation # [id number]
[2020-10-12 07:50] LABS: ALANINE AMINOTRANSFERASE 20 U/L (0-55); ALKALINE PHOSPHATASE 112 U/L (40-136); BILIRUBIN,TOTAL 0.4 MG/DL (0.1-1.0); BUN/CREATININE RATIO 10; CALCIUM 8.7 MG/DL (8.5-10.1); CARBON DIOXIDE 23 MMOL/L (21-32); CHLORIDE 108 MMOL/L (98-107); CHOLESTEROL 188 MG/DL (< 200); CREATININE SERUM 0.69 MG/DL (0.60-1.30); GFR ESTIMATED > 60; GLUCOSE 103 MG/DL (70-105); HDL CHOLESTEROL 40 MG/DL (40-60); POTASSIUM 3.6 MMOL/L (3.6-5.0); SODIUM 141 MMOL/L (135-145); TOTAL PROTEIN 7.1 GM/DL (6.4-8.2); TRIGLYCERIDES 89 MG/DL (<150); VLDL CHOLESTEROL 18 MG/DL (5-40)
[~2020-10-12 08:00] MED LIST changes: +HEParin (CATH LAB) 2,000 ML IV ONE; +HEParin 1000 UNIT/ML (10ML VIAL) FOR BOLUS ONE; +IBUP-1780 PO; +LIDOCAINE 1% INJ 20 ML 20 ML VIAL ONE; +MIDAZOLAM 5 MG/5 ML (VERSED) VIAL ONE; +NITRO DRIP 25000 MCG/D5W 250 ML IV ONE; +NS IV 1000 ML 1,000 ML IV SCH; +NS IV 1000 ML 1,000 ML ONE; +VERAPAMIL 5 MG/2 ML (CALAN) VIAL IV ONE; +fentaNYL INJ 100 MCG/2 ML AMP ONE
--- NOTE | 2020-10-12 08:38 | Cardiac Procedure Note-CS/ASA ---
Pre-Procedure Note Pre-Op Procedure Note H&P Reviewed The H&P was reviewed, patient examined and no changes noted. Date H&P Reviewed: Oct 12, 2020 Time H&P Reviewed: 08:00 Conscious Sedation Pre-Proced Time 08:00 ASA Score 3 For ASA 3 and 4: Consider anesthesia and medical clearance. Also, for patients with a history of failed moderate sedation consider anesthesia. Airway Lungs Heart ASA score ASA 1: a normal healthy patient ASA 2: a patient with a mild systemic disease (mid diabetes, controlled hypertension, obesity x ASA 3: a patient with a severe systemic disease that limits activity (angina, COPD, prior Myocardial infarction) ASA 4: a patient with an incapacitating disease that is a constant threat to life (CHF, renal failure) ASA 5: a moribund patient not expected to survive 24 hrs. (ruptured aneurysm) ASA 6: a declared brain- patient whose organs are being harvested. For emergent operations, add the letter E after the classification Mallampati Classification Grade 3 Sedation Plan Analgesia, Amnesia, Plan communicated to team members, Discussed options with patient/fam, Discussed risks with patient/fam The patient is an appropriate candidate to undergo the planned procedure, sedation, and anesthesia. The patient immediately re-assessed prior to indication. MICHELLE PROCTOR MD Oct 12, 2020 8:38 am
--- NOTE | 2020-10-12 08:40 | Discharge Inst-Post CATH ---
Discharge Inst-CATH/EP Problems Reviewed?: Yes Post Cardiac Cath/EP D/C Inst Follow Up/Plan Appointment with Dr. Holly's office in 4 to 6 weeks <b>CARDIAC CATH/EP PROCEDURE DISCHARGE INSTRUCTIONS</b> ACTIVITY * Go Home directly and rest. * Limit activity of the leg (or wrist if it was used) for 7 days including aer obics, swimming, jogging, bicycling, etc. * Restrict stair-climbing for 7 days if possible, if not, climb up with your non-cath leg, then bring together on the same step. * Avoid lifting, pushing, pulling or excessive movement of the affected extremi ty for 7 days. * Customary sexual activity may be resumed after 2 days-use caution not to use a position that strains or causes pain to the affected extremity. * No driving for 24 hours. * NO SMOKING. * Avoid straining for bowel movements for 7 days. * Gentle walking on level ground is allowed. * Returning to work will depend on the type of procedure and the results. Your doctor will discuss this with you. CALL YOUR DOCTOR FOR ANY OF THE FOLLOWING: *If bleeding from the puncture site occurs- Apply gentle pressure to site with clean cloth and call your doctor or EMS. * If a knot or lump forms under the skin, increases in size, or causes pain. * If bruising appears to be worsening or moving further down your leg instead of disappearing. * Temperature above 101 F. CARE OF YOUR GROIN INCISION; * Bruising or purple discoloration of the skin near the puncture site is common. * You may shower only, no bathtub bathing for 5 days. Be careful to avoid slipping as your leg may feel stiff. * If a closure device was used on your femoral artery, please see the attached guide regarding care of the device and your leg. * Leave dressing on FOR 24 hours. CARE OF YOUR WRIST INCISION; * Bruising or purple discoloration of the skin near the puncture site is common. * You may shower. * DO NOT submerge wrist. * Leave dressing on FOR 24 hours. MICHELLE HOLLY MD Oct 12, 2020 8:40 am
--- NOTE | 2020-10-12 08:44 | Cardiac Cath Report ---
Cardiac Cath Report Physician (s)/Plate Molder (s) Physician MICHELLE PROCTOR MD Pre-Procedure Diagnosis Pre-Procedure Diagnosis: Coronary artery disease Post-Procedure Note Procedure Start Date: Oct 12, 2020 Name of Procedure: Left heart catheterization Aortic arch angiogram Findings/Procedure Note PROCEDURE NOTE: 40-year-old lady with recurrent chest pain, had an abnormal stress test, scheduled for cardiac catheterization possible PTCA. After explaining the procedure to the patient, all pros and cons were explained, all questions were answered. The patient signed the consent and then she was placed on the cardiac catheterization laboratory. Groin was prepped SL fashion local anesthesia was used. Sheath placed in the right radial artery, [place] catheter was advanced to the left ventricular cavity, pressure was measured pullback LV to aorta was done, intubated the right coronary artery and angiogram was done then turned to the left coronary artery and angiogram was done, pulled back to the aortic arch and aortic arch angiogram was done to evaluate the reason for her recurrent chest pain. At the end of the procedure the sheath was removed. Vascular band deployed FINDINGS: Hemodynamics LV 111/14, end-diastolic pressure of 14 Aorta 101/72 mean of 86 ANATOMY: Left Main is free of obstructive disease Left Anterior Descending is slightly tortuous with no obstructive disease Left Circumflex has no significant obstructive disease Right Coronory Artery is dominant artery with no obstructive disease LV Gram was not done, pressure was measured Aorta evaluation done with aortic arch angiogram which showed normal aortic arch, no dissection or aneurysm, normal origin of the innominate artery, left carotid and left subclavian arteries. CONCLUSION: 1. Slightly tortuous coronary system with no significant obstructive disease 2. Normal left ventricular end-diastolic pressure 3. Normal aortic arch and great vessels of the neck DISCUSSION AND RECOMMENDATION: Chest pain is probably noncardiac in nature. Anesthesia Type: Conscious Sedation Estimated blood loss (mL): 10 ml Contrast Amount: 39 ml Total Radiation Dose: 271 mGy Post-Procedure Diagnosis Post-operative diagnosis: Chest pain Coronary artery disease Hypertension Hyperlipidemia MICHELLE PROCTOR MD Oct 12, 2020 8:44 am
[2020-10-12] MEDS ORDERED: NS IV 1000 ML 1,000 ML IV SCH (08:45)
== END 2020-10-12 11:00 | disposition home or self-care (01) ==
LOC: CATH 08:00 → SDC 08:53 → CATH 11:00
PROVIDERS: ATTEND Internal Medicine Cardiovascular Disease
DX: R07.2 Precordial pain (principal); R06.02 Shortness of breath; I25.10 Atherosclerotic heart disease of native coronary artery without angina pectoris; I25.9 Chronic ischemic heart disease, unspecified; I10 Essential (primary) hypertension; E78.2 Mixed hyperlipidemia; I49.5 Sick sinus syndrome; F17.210 Nicotine dependence, cigarettes, uncomplicated; Z79.899 Other long term (current) drug therapy; Z88.1 Allergy status to other antibiotic agents; Z88.0 Allergy status to penicillin; Z88.2 Allergy status to sulfonamides
CPT/HCPCS: 36415; 71045; 80053; 80061; 85027; 85610; 85730; 87081; 93458

== ENCOUNTER → 2020-11-03 | Outpatient (CLI) | payer MEDICAID ==
[~2020-11-03] MED LIST changes: -HEParin (CATH LAB) 2,000 ML IV ONE; -HEParin 1000 UNIT/ML (10ML VIAL) FOR BOLUS ONE; -LIDOCAINE 1% INJ 20 ML 20 ML VIAL ONE; -MIDAZOLAM 5 MG/5 ML (VERSED) VIAL ONE; -NITRO DRIP 25000 MCG/D5W 250 ML IV ONE; -NS IV 1000 ML 1,000 ML IV SCH; -NS IV 1000 ML 1,000 ML ONE; -VERAPAMIL 5 MG/2 ML (CALAN) VIAL IV ONE; -fentaNYL INJ 100 MCG/2 ML AMP ONE
--- NOTE | 2020-11-03 10:08 | Diagnostic Imaging Report ---
PROCEDURE: US Gallbladder. TECHNIQUE: Multiple real-time grayscale images were obtained over the right upper quadrant in various projections. INDICATION: Epigastric pain. Liver is normal in size at 12.8 cm. No discrete liver mass is detected. The portal vein is patent and shows normal direction of flow. Gallbladder is without stones or sludge. There is no wall thickening or biliary ductal dilatation. Pancreas is unremarkable. Aorta and IVC are unremarkable. Right kidney is without calculi or hydronephrosis. There is no ascites. IMPRESSION: No evidence of cholelithiasis or acute cholecystitis. Dictated by: Dictated on workstation # [id number]
== END ==
LOC: RAD 09:15
PROVIDERS: ATTEND Surgery
DX: R10.13 Epigastric pain (principal)
CPT/HCPCS: 76705

== ENCOUNTER → 2020-11-24 | Outpatient (CLI) | payer MEDICAID ==
[~2020-11-24] MED LIST changes: +CATHETER FLUSH 10 ML SYR IV PRN
--- NOTE | 2020-11-24 12:54 | Diagnostic Imaging Report ---
RADIOPHARMACEUTICAL: 5.43mCi Tc-99m Choletec IV INDICATION: Abdominal pain COMPARISON: 11/03/2020 TECHNIQUE: Anterior dynamic imaging for 1 hour. Additional 60 minutes of imaging was performed after the patient ingested 8 ounce can of ensure. FINDINGS: There is homogenous uptake throughout the liver. The gallbladder is visualized at 15minutes and small bowel at 25minutes. After ingestion of an an 8 ounce can of ensure, there is normal contraction of the gallbladder with normal calculated GBEF at 86%. IMPRESSION: 1. Normal HIDA Scan without evidence of cystic or common duct obstruction. 2. Normal GBEF of 86%. Dictated by: Dictated on workstation # [id number]
== END ==
LOC: CARD 09:09
PROVIDERS: ATTEND Surgery
DX: R10.13 Epigastric pain (principal)
CPT/HCPCS: 78227

== ENCOUNTER → 2020-12-13 | Outpatient (CLI) | payer MEDICAID ==
[~2020-12-13] MED LIST changes: -CATHETER FLUSH 10 ML SYR IV PRN; +METO50TA7 PO
== END ==
LOC: LABNPT 08:35
PROVIDERS: ATTEND Internal Medicine Cardiovascular Disease
DX: Z01.89 Encounter for other specified special examinations (principal); Z20.822 Contact with and (suspected) exposure to COVID-19
CPT/HCPCS: 87635

== ENCOUNTER 2020-12-15 12:46 | Outpatient (CLI) | payer MEDICAID ==
[~2020-12-15] VITALS: Ht 156.2 cm; Wt 81.6 kg
[~2020-12-15 12:46] MED LIST changes: -METO50TA7 PO
[2020-12-15] MEDS ORDERED: METO50TA7 PO (14:49)
== END 2020-12-15 15:12 | disposition home or self-care (01) ==
LOC: PREOP 12:46
PROVIDERS: ATTEND Surgery
DX: Z01.818 Encounter for other preprocedural examination (principal)

== ENCOUNTER 2021-08-13 09:23 | Emergency (ER) | payer MEDICAID ==
[~2021-08-13] VITALS: Ht 154 cm; Wt 96.6 kg
[~2021-08-13 09:23] MED LIST changes: +CLIN-144 PO; -CLIN300C12 PO; +METO50TA7 PO; -POTA10TA36 PO; +POTA10TA37 PO
[2021-08-13] MEDS ORDERED: LACTATED RINGERS 1,000 ML IV ONE (09:47)
--- NOTE | 2021-08-13 09:53 | ED Chest Pain ---
General Chief Complaint: Chest Pain Stated Complaint: CP, SOA, FAIR Source: patient Exam Limitations: no limitations History of Present Illness Date Seen by Provider: Aug 13, 2021 Time Seen by Provider: 09:25 Initial Comments 40-year-old female with past medical history of chronic migraines, chronic chest pain, hypertension, hyperlipidemia coming in due to headache, shortness of breath, and chest pain. She says the headache feels like one of her migraines that started last night, is slightly worse than usual, and she tried Imitrex which has not helped yet. Chest pain is the similar chest pain that she has all the time with no change. She says she has had a negative cardiac catheterization and they are unsure what causes it. She says her heart rate goes from the 30s to the high 100s and she is currently following a hogshead filler at . She has a 30-day Holter monitor in place right now she has been worked up in the past for a PE and was negative. Denies any recent cough, vomiting, diarrhea, new weakness, numbness, abdominal pain, neck stiffness, fever that she knows of, or any other concerns. Had a negative Covid test on August 01. Allergies and Home Medications Allergies Coded Allergies: sulfamethoxazole (Verified Allergy, Mild, 01/30/17) trimethoprim (Verified Allergy, Mild, 01/30/17) Penicillins (Verified Allergy, Unknown, Shortness of Breath, 12/15/20) Patient Home Medication List Home Medication List Reviewed: Yes Atorvastatin Calcium (Atorvastatin Calcium) 10 Mg Tablet, 10 MG PO HS, (Reported) Entered as Reported by: BRAULIO YBARRA on 10/04/20 1237 Furosemide (Furosemide) 80 Mg Tablet, 80 MG PO DAILY, (Reported) Entered as Reported by: BRAULIO YBARRA on 10/04/20 1237 Ibuprofen (Ibuprofen) 800 Mg Tablet, 800 MG PO TID PRN for PAIN-MILD (1-4), (Reported) Entered as Reported by: JACKLYN ARANDA on 10/11/20 1213 Metoprolol Succinate (Metoprolol Succinate) 50 Mg Tab.er.24h, 50 MG PO DAILY, (Reported) Entered as Reported by: LACY LESTER on 12/15/20 1449 Pantoprazole Sodium (Protonix) 40 Mg Tablet.dr, 40 MG PO DAILY, (Reported) Entered as Reported by: BRAULIO YBARRA on 10/04/20 1237 Potassium Chloride (Potassium Chloride) 10 Meq Tab.er.prt, 10 MEQ PO DAILY, (Reported) Entered as Reported by: BRAULIO YBARRA on 10/04/20 1237 Review of Systems Review of Systems Constitutional: No chills, No fever EENTM: No Blurred Vision Respiratory: Denies Cough; Shortness of Air Cardiovascular: Chest Pain Gastrointestinal: Denies Abdominal Pain Genitourinary: Denies Burning Musculoskeletal: no symptoms reported Skin: no symptoms reported Psychiatric/Neurological: No Symptoms Reported Endocrine: No Symptoms Reported Hematologic/Lymphatic: No Symptoms Reported All Other Systems Reviewed Negative Unless Noted: Yes Past Ccexebu-Vwnefm-Doaqhl Hx Patient Social History Tobacco Use?: No Smoking Status: Former Smoker Immunizations Up To Date Tetanus Booster (TDap): Less than 5yrs Seasonal Allergies Seasonal Allergies: No Past Medical History Surgeries: Yes (R bicep tendon, EGD) Orthopedic, Tonsillectomy, Tubal Ligation Respiratory: Yes (chronic cough) Currently Using CPAP: No Currently Using BIPAP: No Cardiac: Yes Angina, High Cholesterol, Hypertension, Irregular Heartbeat Neurological: No Reproductive Disorders: No Female Reproductive Disorders: Denies 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 0oz. 81.910329kt; 33.44 BMI Method:Stated General Appearance: No Apparent Distress, WD/WN HEENT: PERRL/EOMI, Normal ENT Inspection, Pharynx Normal Neck: Full Range of Motion, Normal Inspection, Non Tender, Supple Respiratory: Chest Non Tender, Lungs Clear, Normal Breath Sounds, No Accessory Muscle Use, No Respiratory Distress Cardiovascular: No Edema, Normal Peripheral Pulses, Tachycardia Gastrointestinal: Normal Bowel Sounds, Non Tender, Soft; No Distended, No Guarding Extremity: Normal Capillary Refill, Normal Inspection, Normal Range of Motion, Non Tender, No Calf Tenderness, No Pedal Edema Neurologic/Psychiatric: Alert, Oriented x3, No Motor/Sensory Deficits, Normal 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, 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0-12.2 fL Immature Granulocyte % (Auto) 1 % Neutrophils (%) (Auto) 78 H 42-75 % Lymphocytes (%) (Auto) 10 L 12-44 % Monocytes (%) (Auto) 10 0-12 % Eosinophils (%) (Auto) 1 0-10 % Basophils (%) (Auto) 1 0-10 % Neutrophils # (Auto) 3.3 1.8-7.8 10^3/uL Lymphocytes # (Auto) 0.4 L 1.0-4.0 10^3/uL Monocytes # (Auto) 0.4 0.0-1.0 10^3/uL Eosinophils # (Auto) 0.0 0.0-0.3 10^3/uL Basophils # (Auto) 0.0 0.0-0.1 10^3/uL Immature Granulocyte # (Auto) 0.0 0.0-0.1 10^3/uL Prothrombin Time 13.5 12.2-14.7 SEC INR Comment 1.0 0.8-1.4 Activated Partial Thromboplast Time 31 24-35 SEC D-Dimer 0.30 0.00-0.49 UG/ML Sodium Level 137 135-145 MMOL/L Potassium Level 2.9 L 3.6-5.0 MMOL/L Chloride Level 101 98-107 MMOL/L Carbon Dioxide Level 22 21-32 MMOL/L Anion Gap 14 5-14 MMOL/L Blood Urea Nitrogen 7 7-18 MG/DL Creatinine 0.68 0.60-1.30 MG/DL Estimat Glomerular Filtration Rate 114 BUN/Creatinine Ratio 10 Glucose Level 120 H 70-105 MG/DL Calcium Level 8.8 8.5-10.1 MG/DL Corrected Calcium 8.9 8.5-10.1 MG/DL Total Bilirubin 0.3 0.1-1.0 MG/DL Aspartate Amino Transf (AST/SGOT) 14 5-34 U/L Alanine Aminotransferase (ALT/SGPT) 16 0-55 U/L Alkaline Phosphatase 129 40-136 U/L Troponin I < 0.028 <0.028 NG/ML B-Type Natriuretic Peptide < 10.0 <100.0 PG/ML Total Protein 7.4 6.4-8.2 GM/DL Albumin 3.9 3.2-4.5 GM/DL My Orders Orders - KAYCEE MOFFETT MD Ekg Tracing (08/13/21 09:49) Chest 1 View, Ap/Pa Only (08/13/21 09:49) Covid 19 Inhouse Test (08/13/21 09:49) Influenza A & B Antigens (08/13/21 09:49) Fibrin Degradation Products (08/13/21 09:49) Cbc With Automated Diff (08/13/21 09:49) Comprehensive Metabolic Panel (08/13/21 09:49) Protime With Inr (08/13/21 09:49) Partial Thromboplastin Time (08/13/21 09:49) O2 (08/13/21 09:49) Monitor-Rhythm Ecg Trace Only (08/13/21 09:49) Ed Iv/Invasive Line Start (08/13/21 09:49) Bnp Deann (08/13/21 09:49) Troponin I Hendricks (08/13/21 09:49) Lactated Ringers (Lr 1000 Ml Iv Solution (08/13/21 10:00) Prochlorperazine Injection (Compazine In (08/13/21 10:00) Diphenhydramine Injection (Benadryl Inje (08/13/21 10:00) Lactated Ringers (Lr 1000 Ml Iv Solution (08/13/21 09:47) Medications Given in ED Current Medications Medications Dose Ordered Sig/Suzanna Route Start Time Stop Time Status Last Admin Dose Admin Diphenhydramine HCl 25 mg ONCE ONCE IVP 08/13/21 10:00 08/13/21 10:01 DC 08/13/21 10:06 25 MG Prochlorperazine Edisylate 10 mg ONCE ONCE IV 08/13/21 10:00 08/13/21 10:01 DC 08/13/21 10:09 10 MG Vital Signs/I&O 08/13/21 08/13/21 08/13/21 09:30 09:30 09:30 Temp 37.7 37.7 Pulse 126 126 Resp 20 20 B/P (MAP) 128/91 (103) 128/91 Pulse Ox 97 O2 Delivery Room Air Room Air Room Air FiO2 97 Progress Progress Note : Progress Note 40-year-old female with above history coming in due to headache, chest pain, shortness of breath. ABCs were intact and vitals were stable on presentation although she is tachycardic. She does follow with a hogshead filler due to this tachycardia and that is not unusual for her. An IV was placed and she was given a bolus of IV fluids. She was given Compazine and Benadryl IV for her headache. She has no red flags for this headache and she says it feels consistent with her typical migraines. She has normal neuro exam. COVID testing is positive and is consistent with why she is having these body aches. Her oxygen has been good. Basic labs including cardiac biomarkers are normal. This includes a negative troponin, undetectable BNP, and a normal D-dimer. I believe she is stable for discharge with outpatient follow-up. She was sent home with strict return precautions. Initial ECG Impression Date: Aug 13, 2021 Initial ECG Impression Time: 09:33 Initial ECG Rate: 118 Initial ECG Rhythm: S.Tach Comment Narrow QRS, normal axis, no significant ST changes or T wave abnormality Diagnostic Imaging Diagonstic Imaging: Xray Plain Films/CT/US/NM/MRI: chest Comments Chest x-ray ordered and interpreted by me without any obvious focal infiltrate, normal cardiac silhouette, no pneumothorax Departure Impression Primary Impression: COVID-19 Additional Impression: Headache Qualified Codes: R51.9 - Headache, unspecified Disposition: 01 HOME, SELF-CARE Condition: Stable Departure-Patient Inst. Decision time for Depature: 11:00 Referrals: [facility] (PCP) Primary Care Physician ALLISON CELESTE (Family) Primary Care Physician Patient Instructions: COVID-19 Overview Add. Discharge Instructions: You do have COVID unfortunately. I recommend taking 1000 g of Tylenol every 6-8 hours for headache or body aches. You can take 600 mg of ibuprofen every 6 hours as well. Be sure to drink plenty of fluids. Your potassium was low so I recommend doubling your potassium dose for the next 2 days. Work/School Note: Work Release Form Date Seen in the Emergency Department: Aug 13, 2021 Return to Work: Aug 21, 2021 Restrictions: Return-No Fever (24hrs) KAYCEE MOFFETT MD Aug 13, 2021 09:53
[2021-08-13 09:59] LABS: BASOPHILS % (AUTO) 1 % (0-10); EOSINOPHILS % (AUTO) 1 % (0-10); HEMATOCRIT 37 % (35-52); HEMOGLOBIN 11.8 g/dL (11.5-16.0); LYMPHOCYTES # (AUTO) 0.4 10^3/uL (1.0-4.0); LYMPHOCYTES % (AUTO) 10 % (12-44); MEAN CORPUSCULAR HEMOGLOBIN 27 pg (25-34); MEAN CORPUSCULAR HGB CONC 32 g/dL (32-36); MEAN CORPUSCULAR VOLUME 86 fL (80-99); MEAN PLATELET VOLUME 9.2 fL (9.0-12.2); MONOCYTES # (AUTO) 0.4 10^3/uL (0.0-1.0); MONOCYTES % (AUTO) 10 % (0-12); NEUTROPHILS # (AUTO) 3.3 10^3/uL (1.8-7.8); NEUTROPHILS % (AUTO) 78 % (42-75); PLATELET COUNT 344 10^3/uL (130-400); WHITE BLOOD COUNT 4.2 10^3/uL (4.3-11.0)
[2021-08-13] MEDS ORDERED: LACTATED RINGERS 1,000 ML IV SCH (10:00)
[2021-08-13] MEDS ORDERED: PROCHLORPERAZINE 10 MG/2ML INJ (COMPAZINE) IV ONE (10:00)
[2021-08-13] MEDS ORDERED: diphenhydrAMINE 50 MG/ML INJ (BENADRYL) IVP ONE (10:00)
[2021-08-13 10:05] LABS: PROTHROMBIN TIME PATIENT 13.5 SEC (12.2-14.7)
[2021-08-13 10:16] LABS: ALBUMIN 3.9 GM/DL (3.2-4.5); BILIRUBIN,TOTAL 0.3 MG/DL (0.1-1.0); CALCIUM 8.8 MG/DL (8.5-10.1); CREATININE SERUM 0.68 MG/DL (0.60-1.30); POTASSIUM 2.9 MMOL/L (3.6-5.0); TOTAL PROTEIN 7.4 GM/DL (6.4-8.2)
[2021-08-13 11:00] VITALS: BP 141/75
--- NOTE | 2021-08-13 11:12 | Diagnostic Imaging Report ---
Indication: Dyspnea. Follow-up COVID pneumonia. Comparison: 10/12/2020. Discussion: Single portable upright view of the chest was obtained. Groundglass infiltrates obscure the left heart border suggesting viral pneumonia. No pleural fluid or pneumothorax. Normal heart size. No osseous abnormality. Impression: 1. Groundglass infiltrates within the left mid to lower lung consistent with viral pneumonia. Report was faxed to [facility] by lucas at 11:12AM. Dictated by: Dictated on workstation # [id number]
== END 2021-08-13 11:00 | disposition home or self-care (01) ==
LOC: EDUNIT# 09:23 → ER 09:25
DX: U07.1 COVID-19 (principal); G43.909 Migraine, unspecified, not intractable, without status migrainosus; I10 Essential (primary) hypertension; E78.5 Hyperlipidemia, unspecified; E78.00 Pure hypercholesterolemia, unspecified; Z87.891 Personal history of nicotine dependence; Z79.899 Other long term (current) drug therapy
CPT/HCPCS: 36415; 71045; 80053; 83880; 84484; 85025; 85379; 85610; 85730; 87636; 93005; 93041